=== PATIENT | male | born 1945 | race Caucasian/White ===

== ENCOUNTER 2017-09-10 13:39 | Inpatient (IN) | payer OTHER ==
[~2017-09-10] VITALS: Ht 172.7 cm; Wt 88.0 kg
[2017-09-10 13:52] VITALS: BP 133/74; PULSE 57; RESP 16; TEMP 97.8; O2SAT 99
[2017-09-10] MEDS ORDERED: PANTOPRAZOLE SODIUM 40 MG VIAL IVP ONE (14:15)
[2017-09-10] MEDS ORDERED: FAMOTIDINE 20 MG/2 ML VIAL IV PUSH ONE (14:15)
--- NOTE | 2017-09-10 14:52 | RADRPT ---
EXAM DATE/TIME: 09/10/2017 14:37 [facility] COMPARISON: No previous studies available for comparison. INDICATIONS : Chest pain and pressure. MEDICAL HISTORY : Acid reflux. SURGICAL HISTORY : None. ENCOUNTER: Initial ACUITY: 2 days PAIN SCORE: 2/10 LOCATION: Bilateral chest FINDINGS: The cardiac silhouette is enlarged in transverse diameter. The lungs are free of acute parenchymal op acity. No effusions are identified. Calcified granuloma is present in the right lung. CONCLUSION: 1. Cardiomegaly. No acute pulmonary disease. Steve Naqvi MD on September 10, 2017 at 14:49 Board Certified Radiologist. This report was verified electronically.
[2017-09-10 15:04] LABS: PROTHROMBIN TIME - PATIENT 10.5 SEC (9.8-11.6)
[2017-09-10 15:07] LABS: BASOPHIL % 0.6 % (0.0-2.0); EOSINOPHIL # 0.1 TH/MM3 (0-0.4); EOSINOPHIL % 1.4 % (0.0-4.0); HEMATOCRIT 43.5 % (39.0-51.0); HEMOGLOBIN 14.9 GM/DL (13.0-17.0); LYMPH % 10.1 % (9.0-44.0); LYMPHOCYTE # 0.8 TH/MM3 (1.0-4.8); MEAN CELL VOLUME 96.8 FL (80.0-100.0); MEAN CORPUSCULAR HEMOGLOBIN 33.1 PG (27.0-34.0); MEAN CORPUSCULAR HGB CONC 34.2 % (32.0-36.0); MEAN PLATELET VOLUME 8.7 FL (7.0-11.0); MONO % 9.5 % (0.0-8.0); MONOCYTE # 0.7 TH/MM3 (0-0.9); NEUT % 78.4 % (16.0-70.0); PLATELET COUNT 244 TH/MM3 (150-450); RED CELL DISTRIBUTION WIDTH 14.6 % (11.6-17.2); WHITE BLOOD COUNT 7.6 TH/MM3 (4.0-11.0)
[2017-09-10 15:09] VITALS: BP 124/74; PULSE 50; RESP 14; O2SAT 94
[2017-09-10] MEDS ORDERED: DICL1CAP4 PO (15:18)
[2017-09-10] MEDS ORDERED: GLUC15009 PO (15:18)
[2017-09-10] MEDS ORDERED: BISO10TA2 PO (15:18)
[2017-09-10] MEDS ORDERED: ATOR10TA15 PO (15:18)
[2017-09-10] MEDS ORDERED: ASPI81CH6 CHEW (15:18)
[2017-09-10] MEDS ORDERED: DICL75TA PO (15:19)
[2017-09-10] MEDS ORDERED: NITROGLYCERIN 0.4 MG SL 25 TABS/BTL SL ONE (15:30)
[2017-09-10] MEDS ORDERED: ASPIRIN 325 MG TAB PO ONE (15:30)
[2017-09-10 15:31] LABS: BICARBONATE 23.4 MEQ/L (21.0-32.0); CREATININE 0.93 MG/DL (0.60-1.30); TROPONIN I 0.2 NG/ML (0.02-0.05)
[2017-09-10 15:38] LABS: ALBUMIN 3.3 GM/DL (3.4-5.0); DIRECT BILIRUBIN ADULT 0.1 MG/DL (0.0-0.2); INDIRECT BILIRUBIN 0.9 MG/DL (0.0-0.8); TOTAL PROTEIN 6.4 GM/DL (6.4-8.2)
[2017-09-10] MEDS ORDERED: IOHEXOL 350 MG/ML 10 ML VIAL (for RAD DIAG) IVCONTRAST ONE (16:12)
--- NOTE | 2017-09-10 16:21 | RADRPT ---
EXAM DATE/TIME: 09/10/2017 16:08 [facility] COMPARISON: No previous studies available for comparison. INDICATIONS : Patient complains of chest pain. IV CONTRAST: 75 cc Omnipaque 350 (iohexol) IV RADIATION DOSE: 19.71 CTDIvol (mGy) MEDICAL HISTORY : Hypertension. Hernia, hiatal. stomach cancer SURGICAL HISTORY : None. ENCOUNTER: Initial ACUITY: 1 day PAIN SCALE: 6/10 LOCATION: chest TECHNIQUE: Volumetric scanning of the chest was performed using a pulmonary embolism protocol MIP images were re constructed. Using automated exposure control and adjustment of the mA and/or kV according to patien t size, radiation dose was kept as low as reasonably achievable to obtain optimal diagnostic quality images. DICOM format image data is available electronically for review and comparison. Follow-up recommendations for detected pulmonary nodules are based at a minimum on nodule size and pa tient risk factors according to Fleischner Society Guidelines. FINDINGS: PULMONARY ARTERIES: No filling defects are seen in the pulmonary arteries through the segmental level. LUNGS: There is no consolidation or pneumothorax . No concerning pulmonary nodule is visualized. 6 the duran cified granuloma in the right lower lung adjacent to the anterior hemidiaphragm. PLEURAE: There is no pleural thickening or pleural effusion. MEDIASTINUM: There is good visualization of the great vessels of the middle mediastinum. No evidence of mediastin al or hilar adenopathy/mass. Incidental note of mediastinal lipomatosis. CONCLUSION: The study is negative for pulmonary embolism. Arie Gordillo MD on September 10, 2017 at 16:17 Board Certified Radiologist. This report was verified electronically.
[2017-09-10] MEDS ORDERED: SODIUM CHLORIDE 0.9% FLUSH 10 ML FLUSH IV FLUSH PRN (16:45)
[2017-09-10] MEDS ORDERED: NALOXONE HCL 0.4 MG/ML AMP IV PUSH PRN (16:45)
--- NOTE | 2017-09-10 16:57 | PD ---
Physical Exam Narrative GENERAL: 71-year-old male in no apparent distress SKIN: Focused skin assessment warm/dry. HEAD: Atraumatic. Normocephalic. EYES: Pupils equal and round. No scleral icterus. No injection or drainage. ENT: No nasal bleeding or discharge. Mucous membranes pink and moist. NECK: Trachea midline. No JVD. Cardiovascular: Regular rate and rhythm RESPIRATORY: No accessory muscle use. no increased effort MUSCULOSKELETAL: No obvious deformities. No clubbing. No cyanosis. NEUROLOGICAL: Awake and alert. Moves all extremities. Normal speech. PSYCHIATRIC: Appropriate mood and affect; insight and judgment normal. Data Data Last Documented VS Vital Signs Date Time Temp Pulse Resp B/P (MAP) Pulse Ox O2 Delivery O2 Flow Rate FiO2 09/10/17 15:09 50 14 124/74 (91) 94 Room Air 09/10/17 13:52 97.8 Orders Orders Electrocardiogram (09/10/17 13:56) Complete Blood Count With Diff (09/10/17 13:56) Basic Metabolic Panel (Bmp) (09/10/17 13:56) Ckmb (Isoenzyme) Profile (09/10/17 13:56) Troponin I (09/10/17 13:56) Iv Access Insert/Monitor (09/10/17 13:56) Ecg Monitoring (09/10/17 13:56) Oxygen Administration (09/10/17 13:56) Oximetry (09/10/17 13:56) Coag Profile (09/10/17 13:56) Lipase (09/10/17 14:11) Hepatic Functional Panel (09/10/17 14:11) Pantoprazole Inj (Protonix Inj) (09/10/17 14:15) Famotidine Inj (Pepcid Inj) (09/10/17 14:15) Chest, Pa & Lat (09/10/17 13:56) Aspirin (Aspirin) (09/10/17 15:30) Nitroglycerin Sl (Nitrostat Sl) (09/10/17 15:30) Ct Pulmonary Angiogram (09/10/17 ) Iohexol 350 Inj (Omnipaque 350 Inj) (09/10/17 16:12) Admit Order (Ed Use Only) (09/10/17 16:41) Labs Laboratory Tests Test 09/10/17 14:10 White Blood Count 7.6 TH/MM3 Red Blood Count 4.50 MIL/MM3 Hemoglobin 14.9 GM/DL Hematocrit 43.5 % Mean Corpuscular Volume 96.8 FL Mean Corpuscular Hemoglobin 33.1 PG Mean Corpuscular Hemoglobin Concent 34.2 % Red Cell Distribution Width 14.6 % Platelet Count 244 TH/MM3 Mean Platelet Volume 8.7 FL Neutrophils (%) (Auto) 78.4 % Lymphocytes (%) (Auto) 10.1 % Monocytes (%) (Auto) 9.5 % Eosinophils (%) (Auto) 1.4 % Basophils (%) (Auto) 0.6 % Neutrophils # (Auto) 6.0 TH/MM3 Lymphocytes # (Auto) 0.8 TH/MM3 Monocytes # (Auto) 0.7 TH/MM3 Eosinophils # (Auto) 0.1 TH/MM3 Basophils # (Auto) 0.0 TH/MM3 CBC Comment DIFF FINAL Differential Comment Prothrombin Time 10.5 SEC Prothromb Time International Ratio 1.0 RATIO Activated Partial Thromboplast Time 25.3 SEC Blood Urea Nitrogen 16 MG/DL Creatinine 0.93 MG/DL Random Glucose 93 MG/DL Calcium Level 8.0 MG/DL Sodium Level 144 MEQ/L Potassium Level 3.4 MEQ/L Chloride Level 110 MEQ/L Carbon Dioxide Level 23.4 MEQ/L Anion Gap 11 MEQ/L Estimat Glomerular Filtration Rate 80 ML/MIN Total Bilirubin 1.0 MG/DL Direct Bilirubin 0.1 MG/DL Indirect Bilirubin 0.9 MG/DL Aspartate Amino Transf (AST/SGOT) 22 U/L Alanine Aminotransferase (ALT/SGPT) 35 U/L Alkaline Phosphatase 64 U/L Total Creatine Kinase 59 U/L Troponin I 0.20 NG/ML Total Protein 6.4 GM/DL Albumin 3.3 GM/DL Lipase 97 U/L [facility] Supervised Visit with KAMLESH: Yes Interpretation(s) CBC & BMP Diagram 09/10/17 14:10 Calcium Level 8.0 L Last 24 hours Impressions Chest X-Ray 09/10/17 1356 Signed Impressions: Service Date/Time: September 14:37 - CONCLUSION: 1. Cardiomegaly. No acute pulmonary disease. Steve Naqvi MD CT Angiography 09/10/17 0000 Signed Impressions: Service Date/Time: September 16:08 - CONCLUSION: The study is negative for pulmonary embolism. Arie Gordillo MD Narrative Course I, Dr. del castillo, have reviewed the advance practice practitioner's documentation and am in agreement, met with the patient face to face, made the diagnosis, and the medical decision making was done by me. *My assessment and Findings: 71 y/o male presents with chest pain. Troponin is elevated at 0.2. CT chest no PE, patient agrees to admit for further care Diagnosis Primary Impression: Chest pain Qualified Codes: R07.9 - Chest pain, unspecified Additional Impression: Elevated troponin Aundrea Del Castillo MD Sep 10, 2017 16:57
[2017-09-10] MEDS ORDERED: HEPARIN SODIUM - IV 10,000 UNITS/10 ML VIAL IV PUSH ONE (17:00)
[2017-09-10] MEDS ORDERED: NITROGLYCERIN 0.4 MG SL 25 TABS/BTL SL PRN (17:00)
[2017-09-10] MEDS: PANTOPRAZOLE SODIUM 40 MG VIAL IV PUSH SCH ×2 (17:00→22:17)
--- NOTE | 2017-09-10 17:14 | PD ---
HPI Chief Complaint: Cardiac Complaint Time Seen by Provider: 14:03 Travel History International Travel<30 days: No Contact w/Intl Traveler<30days: No Traveled to known affect area: No History of Present Illness HPI 71-year-old male that presents to the ED for evaluation of chest pain. Patient came here by ambulance for evaluation of this. Per patient started having this last night. He denies any recent travel. 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 Per patient he believes that this is related to GERD. He does have a significant history of heartburn being on medications chronically for this. He also developed gastric tumors and has a couple on his stomach. Per patient he had an EGD as well as colonoscopy recently that showed polyps and known malignant precancerous tumors. Patient does not receive any chemoradiation. Per patient she denies any injuries. Denies any headache. No blurred vision or double vision. No nausea or vomiting. Patient feels like a burning sensation of pressure on his chest. Per patient sitting up makes it better. He was not given anything for this. Allergy to naproxen. Per patient the pain is 7 out of 10. Patient got concerned today because the pain will not improve and his family was concerned about heart. PFSH Past Medical History High Cholesterol: Yes GERD: Yes Hiatal Hernia: Yes Hypertension: Yes Influenza Vaccination: Yes Past Surgical History Abdominal Surgery: Yes (gastrectomy from carcinoma of stomach) Oral Surgery: Yes (jaw repair) Other Surgery: Yes (hernia repair) Social History Alcohol Use: Yes (12/week wine or whiskey) Tobacco Use: No Substance Use: No Allergies-Medications (Allergen,Severity, Reaction): Coded Allergies: naproxen (Verified Allergy, Severe, 09/10/17) ULCERS Reported Meds & Prescriptions Reported Meds & Active Scripts Active Reported Diclofenac Sodium DR (Diclofenac Sodium) 75 Mg Tabdr 75 Mg PO DAILY Glucosamine 1,500 Mg Tab 1,500 Mg PO DAILY Aspirin Low Dose (Aspirin) 81 Mg Chew 81 Mg CHEW DAILY Atorvastatin (Atorvastatin Calcium) 10 Mg Tab 10 Mg PO HS Bisoprolol-Hydrochlorothiazide 10-6.25 Mg Tab 1 Tab PO DAILY Review of Systems Except as stated in HPI: all other systems reviewed are Neg Physical Exam Narrative GENERAL: SKIN: Warm and dry. HEAD: Atraumatic. Normocephalic. EYES: Pupils equal and round. No scleral icterus. No injection or drainage. ENT: No nasal bleeding or discharge. Mucous membranes pink and moist. Tongue is midline. No uvula deviation. NECK: Trachea midline. No JVD. CARDIOVASCULAR: Regular rate and rhythm. No murmurs, S3, S4. RESPIRATORY: No accessory muscle use. Clear to auscultation. Breath sounds equal bilaterally. GASTROINTESTINAL: Abdomen soft, non-tender, nondistended. Hepatic and splenic margins not palpable. MUSCULOSKELETAL: Extremities without clubbing, cyanosis, or edema. No obvious deformities. Full range of motion of the upper and lower extremities bilaterally. 2+ Pulses bilaterally. NEUROLOGICAL: Awake and alert. No obvious cranial nerve deficits. Motor grossly within normal limits. Five out of 5 muscle strength in the arms and legs. Normal speech. PSYCHIATRIC: Appropriate mood and affect; insight and judgment normal. Data Data Last Documented VS Vital Signs Date Time Temp Pulse Resp B/P (MAP) Pulse Ox O2 Delivery O2 Flow Rate FiO2 09/10/17 15:09 50 14 124/74 (91) 94 Room Air 09/10/17 13:52 97.8 Orders Orders Electrocardiogram (09/10/17 13:56) Complete Blood Count With Diff (09/10/17 13:56) Basic Metabolic Panel (Bmp) (09/10/17 13:56) Ckmb (Isoenzyme) Profile (09/10/17 13:56) Troponin I (09/10/17 13:56) Iv Access Insert/Monitor (09/10/17 13:56) Ecg Monitoring (09/10/17 13:56) Oxygen Administration (09/10/17 13:56) Oximetry (09/10/17 13:56) Coag Profile (09/10/17 13:56) Lipase (09/10/17 14:11) Hepatic Functional Panel (09/10/17 14:11) Pantoprazole Inj (Protonix Inj) (09/10/17 14:15) Famotidine Inj (Pepcid Inj) (09/10/17 14:15) Chest, Pa & Lat (09/10/17 13:56) Aspirin (Aspirin) (09/10/17 15:30) Nitroglycerin Sl (Nitrostat Sl) (09/10/17 15:30) Ct Pulmonary Angiogram (09/10/17 ) Iohexol 350 Inj (Omnipaque 350 Inj) (09/10/17 16:12) Admit Order (Ed Use Only) (09/10/17 16:41) Labs Laboratory Tests Test 09/10/17 14:10 White Blood Count 7.6 TH/MM3 Red Blood Count 4.50 MIL/MM3 Hemoglobin 14.9 GM/DL Hematocrit 43.5 % Mean Corpuscular Volume 96.8 FL Mean Corpuscular Hemoglobin 33.1 PG Mean Corpuscular Hemoglobin Concent 34.2 % Red Cell Distribution Width 14.6 % Platelet Count 244 TH/MM3 Mean Platelet Volume 8.7 FL Neutrophils (%) (Auto) 78.4 % Lymphocytes (%) (Auto) 10.1 % Monocytes (%) (Auto) 9.5 % Eosinophils (%) (Auto) 1.4 % Basophils (%) (Auto) 0.6 % Neutrophils # (Auto) 6.0 TH/MM3 Lymphocytes # (Auto) 0.8 TH/MM3 Monocytes # (Auto) 0.7 TH/MM3 Eosinophils # (Auto) 0.1 TH/MM3 Basophils # (Auto) 0.0 TH/MM3 CBC Comment DIFF FINAL Differential Comment Prothrombin Time 10.5 SEC Prothromb Time International Ratio 1.0 RATIO Activated Partial Thromboplast Time 25.3 SEC Blood Urea Nitrogen 16 MG/DL Creatinine 0.93 MG/DL Random Glucose 93 MG/DL Calcium Level 8.0 MG/DL Sodium Level 144 MEQ/L Potassium Level 3.4 MEQ/L Chloride Level 110 MEQ/L Carbon Dioxide Level 23.4 MEQ/L Anion Gap 11 MEQ/L Estimat Glomerular Filtration Rate 80 ML/MIN Total Bilirubin 1.0 MG/DL Direct Bilirubin 0.1 MG/DL Indirect Bilirubin 0.9 MG/DL Aspartate Amino Transf (AST/SGOT) 22 U/L Alanine Aminotransferase (ALT/SGPT) 35 U/L Alkaline Phosphatase 64 U/L Total Creatine Kinase 59 U/L Troponin I 0.20 NG/ML Total Protein 6.4 GM/DL Albumin 3.3 GM/DL Lipase 97 U/L [facility] Medical Decision Making Medical Screen Exam Complete: Yes Emergency Medical Condition: Yes Medical Record Reviewed: Yes Interpretation(s) CBC & BMP Diagram 09/10/17 14:10 Calcium Level 8.0 L troponin of 0.20 CKMB negative EKG shows sinus bradycardia but no obvious ST elevations Last Impressions Chest X-Ray 09/10/17 1356 Signed Impressions: Service Date/Time: September 14:37 - CONCLUSION: 1. Cardiomegaly. No acute pulmonary disease. Steve Naqvi MD CT Angiography 09/10/17 0000 Signed Impressions: Service Date/Time: September 16:08 - CONCLUSION: The study is negative for pulmonary embolism. Arie Gordillo MD Coags WNL Differential Diagnosis Chest pain versus ACS versus GERD versus PE Narrative Course 71-year-old male who presents to the ED for evaluation of chest pain. Patient was properly examined and found to have concerning symptoms for ACS. Labs and imaging were ordered. Patient given protonix, pepcid, aspirin and nitro. Labs and imaging showed positive troponin. CTA ordered to rule out PE per Dr Altamirano's recommendations. This was negative. At this time recommendation is for admission for further evaluation. Patient agrees. Case discussed with Dr. Moran who agrees with admission. Diagnosis Primary Impression: Chest pain Qualified Codes: R07.9 - Chest pain, unspecified Additional Impression: Elevated troponin Admitting Information Admitting Physician Requests: Admit Jason Lewis Sep 10, 2017 17:14
[2017-09-10] MEDS ORDERED: MORPHINE SULFATE 2 MG/ML SYRINGE IV PUSH PRN (17:15)
[2017-09-10] MEDS: HEPARIN-D5W 25,000 U/250 ML 250 ML IV PRN (17:30)
[2017-09-10 17:35] VITALS: BP 190/88; PULSE 52; RESP 24; O2SAT 97
[2017-09-10 20:17] VITALS: BP 162/94; PULSE 54; RESP 16; O2SAT 97
--- NOTE | 2017-09-10 20:17 | EKG ---
Date Performed: 09/10/2017 Time Performed: 14:05:59 PTAGE: 71 years EKG: SINUS BRADYCARDIA NONSPECIFIC INFERIOR ST ABNORMALITY ABNORMAL ECG NO PREVIOUS TRACING DOCTOR: Leno Varner Interpretating Date/Time 09/10/2017 20:15:35
[2017-09-10] MEDS ORDERED: POTASSIUM CHLORIDE 20 MEQ CONTROLLED RELEASE TAB PO ONE (20:45)
--- NOTE | 2017-09-10 20:46 | HHI.HP ---
[facility] Unknown Admission Diagnosis acute chest pain, positive troponin Diagnoses: Travel History International Travel<30 Days: No Contact w/Intl Traveler <30 Da: No Traveled to Known Affected Are: No History of Present Illness 71-year-old male with past medical history significant for carcinoid tumor status post resection, hypertension, hyperlipidemia and GERD presents to the emergency department with evaluation of chest pain. The patient reports that the chest pain started last night. Describes it as substernal and states that it radiates up his bilateral neck. He endorses an episode of diaphoresis around 10 AM. Denies increased shortness of breath. No abdominal pain. No nausea/vomiting/diarrhea. No weakness or lateralizing signs/symptoms. Review of Systems Except as stated in HPI: all other systems reviewed are Neg Past Family Social History Past Medical History History of carcinoid tumor Hypertension Hyperlipidemia GERD Past Surgical History Partial gastrectomy Right hip Reported Medications Reported Meds & Active Scripts Active Reported Diclofenac Sodium DR (Diclofenac Sodium) 75 Mg Tabdr 75 Mg PO DAILY Glucosamine 1,500 Mg Tab 1,500 Mg PO DAILY Aspirin Low Dose (Aspirin) 81 Mg Chew 81 Mg CHEW DAILY Atorvastatin (Atorvastatin Calcium) 10 Mg Tab 10 Mg PO HS Bisoprolol-Hydrochlorothiazide 10-6.25 Mg Tab 1 Tab PO DAILY Allergies: Coded Allergies: naproxen (Verified Allergy, Severe, 09/10/17) ULCERS Family History Negative for CAD/DM Social History Remote history of tobacco. Drinks approximately 1-2 drinks daily. Denies illicit drugs. Physical Exam Vital Signs Vital Signs Date Time Temp Pulse Resp B/P (MAP) Pulse Ox O2 Delivery O2 Flow Rate FiO2 09/10/17 20:17 54 16 162/94 (116) 97 Room Air 09/10/17 17:35 52 24 190/88 (122) 97 Room Air 09/10/17 15:09 50 14 124/74 (91) 94 Room Air 09/10/17 13:52 97.8 57 16 133/74 (93) 99 Physical Exam GENERAL: male lying in bed SKIN: No rashes, ecchymoses or lesions. Cool and dry. HEAD: Atraumatic. Normocephalic. No temporal or scalp tenderness. EYES: Pupils equal round and reactive. Extraocular motions intact. No scleral icterus. No injection or drainage. ENT: Nose without bleeding, purulent drainage or septal hematoma. Throat without erythema, tonsillar hypertrophy or exudate. Uvula midline. Airway patent. NECK: Trachea midline. No JVD or lymphadenopathy. Supple, nontender, no meningeal signs. CARDIOVASCULAR: Regular rate and rhythm without murmurs, gallops, or rubs. RESPIRATORY: Clear to auscultation. Breath sounds equal bilaterally. No wheezes , rales, or rhonchi. GASTROINTESTINAL: Abdomen soft, non-tender, nondistended. No hepato-splenomegaly , or palpable masses. No guarding. MUSCULOSKELETAL: Extremities without clubbing, cyanosis, or edema. No joint tenderness, effusion, or edema noted. No calf tenderness. NEUROLOGICAL: Awake and alert. Cranial nerves II through XII intact. Motor and sensory grossly within normal limits. Normal speech. Laboratory Laboratory Tests Test 09/10/17 14:10 09/10/17 20:10 White Blood Count 7.6 Red Blood Count 4.50 Hemoglobin 14.9 Hematocrit 43.5 Mean Corpuscular Volume 96.8 Mean Corpuscular Hemoglobin 33.1 Mean Corpuscular Hemoglobin Concent 34.2 Red Cell Distribution Width 14.6 Platelet Count 244 Mean Platelet Volume 8.7 Neutrophils (%) (Auto) 78.4 Lymphocytes (%) (Auto) 10.1 Monocytes (%) (Auto) 9.5 Eosinophils (%) (Auto) 1.4 Basophils (%) (Auto) 0.6 Neutrophils # (Auto) 6.0 Lymphocytes # (Auto) 0.8 Monocytes # (Auto) 0.7 Eosinophils # (Auto) 0.1 Basophils # (Auto) 0.0 CBC Comment DIFF FINAL Differential Comment Prothrombin Time 10.5 Prothromb Time International Ratio 1.0 Activated Partial Thromboplast Time 25.3 Blood Urea Nitrogen 16 Creatinine 0.93 Random Glucose 93 Calcium Level 8.0 Sodium Level 144 Potassium Level 3.4 Chloride Level 110 Carbon Dioxide Level 23.4 Anion Gap 11 Estimat Glomerular Filtration Rate 80 Total Bilirubin 1.0 Direct Bilirubin 0.1 Indirect Bilirubin 0.9 Aspartate Amino Transf (AST/SGOT) 22 Alanine Aminotransferase (ALT/SGPT) 35 Alkaline Phosphatase 64 Total Creatine Kinase 59 Troponin I 0.20 Total Protein 6.4 Albumin 3.3 Lipase 97 Result Diagram: 09/10/17 14109/10/17 1410 Caprini VTE Risk Assessment Caprini VTE Risk Assessment: Mod/High Risk (score >= 2) Caprini Risk Assessment Model Point Value = 1 Point Value = 2 Point Value = 3 Point Value = 5 Age 41-60 Minor surgery BMI > 25 kg/m2 Swollen legs Varicose veins or History of unexplained or recurrent spontaneous Oral contraceptives or hormone replacement Sepsis (< 1 month) Serious lung disease, including pneumonia (< 1 month) Abnormal pulmonary function Acute myocardial infarction Congestive heart failure (< 1 month) History of inflammatory bowel disease Medical patient at bed rest Age 61-74 Arthroscopic surgery Major open surgery (> 45 min) Laparoscopic surgery (> 45 min) Malignancy Confined to bed (> 72 hours) Immobilizing plaster cast Central venous access Age >= 75 History of VTE Family history of VTE Factor V Leiden Prothrombin [id number] Lupus anticoagulant Anticardiolipin antibodies Elevated serum homocysteine Heparin-induced thrombocytopenia Other congenital or acquired thrombophilia Stroke (< 1 month) Elective arthroplasty Hip, pelvis, or leg fracture Acute spinal cord injury (< 1 month) Prophylaxis Regimen Total Risk Factor Score Risk Level Prophylaxis Regimen 0-1 Low Early ambulation 2 Moderate Order ONE of the following: *Sequential Compression Device (SCD) *Heparin 5000 units SQ BID 3-4 Higher Order ONE of the following medications: *Heparin 5000 units SQ TID *Enoxaparin/Lovenox 40 mg SQ daily (WT < 150 kg, CrCl > 30 mL/min) *Enoxaparin/Lovenox 30 mg SQ daily (WT < 150 kg, CrCl > 10-29 mL/min) *Enoxaparin/Lovenox 30 mg SQ BID (WT < 150 kg, CrCl > 30 mL/min) AND/OR *Sequential Compression Device (SCD) 5 or more Highest Order ONE of the following medications: *Heparin 5000 units SQ TID (Preferred with Epidurals) *Enoxaparin/Lovenox 40 mg SQ daily (WT < 150 kg, CrCl > 30 mL/min) *Enoxaparin/Lovenox 30 mg SQ daily (WT < 150 kg, CrCl > 10-29 mL/min) *Enoxaparin/Lovenox 30 mg SQ BID (WT < 150 kg, CrCl > 30 mL/min) AND *Sequential Compression Device (SCD) Assessment and Plan Assessment and Plan Assessment/plan: 1. NSTEMI EKG significant for sinus bradycardia without ST segment elevations or depressions Initial troponin 0.20 ACS rule out pending; serial troponins/EKGs Heparin bolus and drip Cardiology consulted, appreciate recommendations 2. Hypertension/hyperlipidemia/GERD Continue home statin and antihypertensive 3. History of carcinoid tumor Per patient his tumor markers are again elevated He has an oncologist in [place] that he follows with Continue outpatient care 4. Hypokalemia Status post by mouth repletion Monitor BMP FEN NPO Electrolytes: As above Heparin drip NS at 70 cc/hour Physician Certification 2 Midnight Certification Type: Admission for Inpatient Services Order for Inpatient Services The services are ordered in accordance with Medicare regulations or non- Medicare payer requirements, as applicable. In the case of services not specified as inpatient-only, they are appropriately provided as inpatient services in accordance with the 2-midnight benchmark. Estimated LOS (days): 2 2 days is the estimated time the patient will need to remain in the hospital, assuming treatment plan goals are met and no additional complications. Post-Hospital Plan: Not yet determined Diana Colvin MD Sep 10, 2017 20:46
[2017-09-10] MEDS ORDERED: ATORVASTATIN 10 MG TAB PO SCH (21:00)
[2017-09-10 21:15] LABS: TROPONIN I 1.77 NG/ML (0.02-0.05)
[2017-09-10 21:26] VITALS: BP 135/65; PULSE 51; RESP 17; TEMP 97.7; O2SAT 96
[2017-09-10 21:34] VITALS: PULSE 48
[2017-09-10] MEDS ORDERED: PILL SPLITTER OTHER PRN (21:45)
[2017-09-10] MEDS: SODIUM CHLORIDE 0.9% FLUSH 10 ML FLUSH IV FLUSH SCH (22:18)
[2017-09-10] MEDS: SODIUM CHLOR 0.9% 1000 ML INJ 1,000 ML IV SCH (22:18)
[2017-09-10] MEDS: MORPHINE SULFATE 4 MG/ML INJ IV PUSH PRN (22:26)
[2017-09-11] VITALS (10 sets, daily range): BP systolic 108–136; BP diastolic 52–81; PULSE 48–60; RESP 16–20; TEMP 97.9–98.2; O2SAT 94–96
[2017-09-11] MEDS: MORPHINE SULFATE 4 MG/ML INJ IV PUSH PRN ×5 (04:21→23:19)
--- NOTE | 2017-09-11 05:34 | EKG ---
Date Performed: 09/10/2017 Time Performed: 20:15:00 PTAGE: 71 years EKG: SINUS BRADYCARDIA WITH FIRST DEGREE AV BLOCK ST/T-WAVE ABNORMALITY, CONSIDER LATERAL ISCHEM IA ABNORMAL ECG PREVIOUS TRACING : 09/10/2017 14.05 Compared to previous tracing, T wave inversion in AVL is no w present. DOCTOR: Leno Varner Interpretating Date/Time 09/11/2017 05:33:12
[2017-09-11] MEDS ORDERED: HYDROCHLOROTHIAZIDE 25 MG TAB PO SCH (09:00)
[2017-09-11] MEDS ORDERED: ASPIRIN EC 325 MG TABEC PO SCH (09:00)
[2017-09-11] MEDS: SODIUM CHLORIDE 0.9% FLUSH 10 ML FLUSH IV FLUSH SCH ×2 (09:00→20:12)
[2017-09-11] MEDS ORDERED: BISOPROLOL/HCTZ 10 MG/6.25 MG TAB PO SCH (09:00)
[2017-09-11] MEDS ORDERED: BISOPROLOL FUMARATE 5 MG TAB PO SCH (09:00)
[2017-09-11] MEDS ORDERED: HEPARIN-NS/PF FLUSH BAG 2,000 ML IV FLUSH ONE (09:51)
[2017-09-11] MEDS ORDERED: HEPARIN SODIUM - IV 10,000 UNITS/10 ML VIAL ONE (09:52)
[2017-09-11] MEDS ORDERED: LIDOCAINE HCL 1% PF 30 ML VIAL ONE (09:52)
[2017-09-11] MEDS ORDERED: VERAPAMIL HCL 5 MG/2 ML VIAL ONE (09:52)
[2017-09-11] MEDS ORDERED: MIDAZOLAM HCL 2 MG/2 ML VIAL ONE (09:54)
[2017-09-11] MEDS ORDERED: NITROGLYCERIN-D5W 50 MG/250 ML 250 ML ONE (10:22)
[2017-09-11] MEDS ORDERED: HEPARIN-D5W 25,000 U/250 ML 250 ML ONE (10:22)
--- NOTE | 2017-09-11 10:42 | CATHPROC ---
[employer] HIS Report Study Information Study Number Admission Scheduled Start Study Start [id number] Sep 10 2017 4:42PM 09/11/2017 Sep 11 2017 9:50AM [facility] Cardiac Catheterization Admit Source Facility Department Emergency department [facility] - [facility] [employer] [facility] Physician and Clinical Staff Initial MD Reese, Joseph Relay Technician Stephani Aquino,RN Recorder Garth SHEEHAN, Dashawn Esparza,RT(R) Procedures Performed Procedure Location (Site) Vessel Name Coronary Angiograms RCA Right Coronary L Heart Cath Equipment Time [employer] Supervisor Description Size Mfg Part Number Used/Scraped TRANSDUCER, TRUWAVE [id number] 09:51 MOISE DAVISON * Used W/STOCKCOCK *[id number] *[id number] [id number] *[id number] 09:51 [employer] PACK, CCL CUSTOM * Used *[id number] 09:51 [employer] SUPPORT, ARTERIAL ADULT 50731 *[id number] Used BAND, RADIAL COMPRESSION TR [id number] 10:24 Antengo 29CM Used LARGE 29 *[id number] 09:51 [employer] WIRE, EXCHANGE 260CM 3MMJ 260CM Used *[id number] 09:51 NAMIC MANIFOLD, 4 PORT * Used *[id number] 09:51 [employer] OMNIPAQUE, 350 MG, 150ML 150ML [id number] Used [id number] 09:51 [employer] BLANKET,WARM AIR CCL * Used *[id number] SHEATH, FR6 TRANSRADIAL RM*[id number] 09:51 [employer] MEDICAL FR 6 Used SLENDER 10CM *[id number] History: Allergies Allergy Reaction naproxen History: Risk Factors Family History of Hypertension Dyslipidemia Previous MN Previous Heart Failure Premature CAD Yes Yes Yes No No Prior Valve Prior PCI Prior CABG Surgery No No No Cerebrovascular Peripheral Artery Chronic Lung On Dialysis Diabetes Disease Disease Disease No No No No No History: Symptoms/Diagnosis Selection Items Chest pain History: Stress Tests Stress or Imaging Studies Performed No History: Other Current Smoker Method Quit Packs a Day Years Used Pack Years No Cigarettes 30 Years Ago 1 23 Labs Hgb (g/dl) Hct (%) WBC (l/cumm) Platelets (thousands) 11.60-17.00 35.00-51.00 4.00-11.00 150.00-450.00 14.9 43.5 7.6 244 Glucose (mg/dl) BUN (mg/dl) Creatinine (mg/dl) BUN:Creatinine (1:x) 74.00-106.00 7.00-18.00 0.50-1.30 10.00-20.00 93 16 0.9 17.8 Na (meq/l) K (meq/l) 136.00-145.00 3.50-5.10 144 3.4 Troponin I (ng/ml) CPK (u/l) CPK-MB (ng/ML) 0.02-0.05 26.00-308.00 0.50-3.60 1.8 123 Not Drawn Medication Medication Total Dose (Bolus/Oral) Medication Total Dosage/Unit 1% XYLOCAINE 3 mL FENTANYL 25 mcg RADIAL COCKTAIL 5 mL (Bolus) VERSED 0.5 mg Medications (Bolus/Oral) Medication Time Given Dosage/Unit Administered By Reason 1% XYLOCAINE 09/11/2017 10:10:11 AM 3 mL Joseph Reese Patient arrived on 3 mL 1% XYLOCAINE given by Joseph Reese in Right Radial via Subcutaneous. VERSED 09/11/2017 10:11:27 AM 0.5 mg Stephani Aquino Patient arrived on 0.5 mg VERSED given by Stephani Aquino, SISSY via Peripheral IV. Ordered by Joseph Reese Ntg 200mcg Verapamil 2.5mg Heparin RADIAL COCKTAIL 09/11/2017 10:11:58 AM 5 mL (Bolus) Joseph Reese 3000U Patient arrived on 5 mL (Bolus) RADIAL COCKTAIL given by Joseph Reese via Radial. Using [Solut ion Name]. Ordered by Joseph Reese Reason: Ntg 200mcg Heparin 3300U. FENTANYL 09/11/2017 10:12:41 AM 25 mcg Stephani Aquino Patient arrived on 25 mcg FENTANYL given by Stephani Aquino, SISSY via Peripheral IV. Ordered by Joseph Reese Medication (Drip) Medication Time Given Dosage/Unit Concentration/Unit Diluent (ml) Solution HEPARIN DRIP 09/11/2017 10:33:29 AM 1000 units/hr 20178 units 250 D5W Patient arrived on 1000 units/hr HEPARIN DRIP given by Stephani Aquino, SISSY via Peripheral IV. Pump/Dri p Flow = 10 ml/hr [place] D5[place] [address] units in 250 ml. Ordered by Joseph Reese IV Solutions 09/11/2017 9:50:21 AM 0 mL (IV) 1000 NaCl .9 Patient arrived on IV Solutions in Left Antecubital via Peripheral IV. Pump/Drip Flow = 20 ml/hr joseph g NaCl .9. NITROGLYCERIN DRIP 09/11/2017 10:33:53 AM 5 mcg/min 50 mg 250 D5W Patient arrived on 5 mcg/min NITROGLYCERIN DRIP given by Stephani Aquino RN via Peripheral IV. Pump/D rip Flow = 1.5 ml/hr using D5W with a concentration of 50 mg in 250 ml. Ordered by Joseph Reese Final Case Assessment Cardiovascular HR NIBP 44 111/63 Edema Present Skin color Skin None Normal Warm Dry Circulatory - Right Pulses Dorsalis Pedis Femoral Radial 1 2 2 Scale (0,1,2,3,4,d) Circulatory - Left Pulses Dorsalis Pedis Femoral Radial 1 2 Scale (0,1,2,3,4,d) Neurological State Oriented to time-place- Alert Moves all extremities person Respiration - General SpO2 (%) 96 Chronological Log Time Study Chronological Log 9:49:51 Patient arrived via Bed. 9:49:53 Patient Name, D.O.B, / Armband Verified By R.N. 9:49:54 Consent signed by the physician and the patient and verified by the [employer] staff. 9:49:54 Pre-op and post- op instructions given; patient acknowledges understanding of instructions. 9:49:58 Presedation assessment performed by [employer] RN. 9:50:01 Allens test performed on the right radial and ulnar artery. 9:50:14 Patient has been NPO for More than 6Hrs. 9:50:15 Skin Breakdown- 9:50:16 Debbie Prominences Protected 9:50:20 A # 20 IV was noted in the Antecubital (left). Grade = patent 9:50:21 Patient arrived on IV Solutions in Left Antecubital via Peripheral IV. Pump/Drip Flow = 20 m l/hr using NaCl .9. 9:50:22 History and physical on the chart or being dictated. Vitals capture started with the following parameters, Patient=Adult, Interval=5 min, Initial Pr aeloov=766 mmHg, 9:51:31 Deflation Rate=5 mmHg, Cuff placed on Left Arm 9:52:12 PFQO=454/71 mmhg, Pain=0, Nicholas=10, Austin=2 9:56:10 A # 20 IV was noted in the Hand (left). Grade = patent 9:57:50 HR=47 bpm, TIEP=094/68 mmhg, SpO2=95.0 %, Resp=17 B/min, Austin=2 10:00:04 Right Radial and groin(s) prepped with 2% chlorhexidine, and draped after a 3 min. waiting time. 10:00:21 MD arrived. 10:02:12 HR=45 bpm, PLJI=693/71 mmhg, SpO2=95.0 %, Resp=18 B/min, Austin=2 10:03:51 Reference ECG taken 10:05:04 Pressure channel 1 zeroed. 10:07:13 HR=47 bpm, WXQH=015/69 mmhg, SpO2=92.0 %, Resp=16 B/min, Austin=2 Time Out. Correct patient, correct procedure, correct physician, power injector loaded, or not loaded with contrast with 10:09:18 surgical team present. Time Out Concurred by MD and individual staff in procedure. 10:09:54 Case Start 10:10:11 Patient arrived on 3 mL 1% XYLOCAINE given by Joseph Reese in Right Radial via Subcu taneous. 10:11:14 Access site was Radial Artery. 10:11:27 Patient arrived on 0.5 mg VERSED given by Stephani Aquino, SISSY via Peripheral IV. Ordered by Joseph Reese Patient arrived on 5 mL (Bolus) RADIAL COCKTAIL given by Joseph Reese via Radial. Using [Solution Name]. 10:11:58 Ordered by Joseph Reese Reason: Ntg 200mcg Heparin 3300U. 10:12:10 HR=48 bpm, BWFK=121/71 mmhg, SpO2=99.0 %, Resp=15 B/min, Austin=2 10:12:41 Patient arrived on 25 mcg FENTANYL given by Stephani Aquino, RN via Peripheral IV. Ordered b y Joseph Reese. A JR 4.0 INFINITI CATHETER FR 5 was advanced over a wire. OMNIPAQUE, 350 MG, 150ML 150ML was us ed for 10:12:50 injections. Recorded Pressure: LV, HR=51, Condition=Condition 1 10:14:15 (Left Ventricle) LV 113/5/16 Recorded Pressure: LV, Ao, HR=54, Condition=Condition 1 10:14:28 (Left Ventricle) LV 103/5/12, (Aorta) Ao 99/59/76 10:16:34 The RCA was injected and visualized at various angles. OMNIPAQUE, 350 MG, 150ML 150ML used . 10:17:15 HR=48 bpm, YBHU=566/58 mmhg, SpO2=91.0 %, Resp=13 B/min, Austin=2 After removing the current catheter a JL 3.5 INFINITI CATHETER FR 5 was advanced over a WIRE, EXCHANGE 260CM 10:17:46 3MMJ 260CM. 10:22:08 HR=47 bpm, BVWA=680/60 mmhg, SpO2=93.0 %, Resp=18 B/min, Pain=0, Austin=2 10:23:03 Catheter was removed 10:23:38 Case End Radial Compression Device Used. 10 mLs of air placed in BAND, RADIAL COMPRESSION TR LARGE 29 2 9CM. Affected 10:25:10 hand 97 % O2 saturation. 10:25:33 Bedside Report will be given. 10:25:35 DOCU called. Spoke to JAILENE Assessment: Final Case, HR=44 BPM, ZTHP=811/63 mmhg, Edema=None, Color=Normal, Skin = Warm, Dr y Right Pulses: Jeff Ped=1, Femoral=2, Radial=2 10:27:03 Left Pulses: Jeff Ped=1, Femoral=2 Neurological: State=Alert, Ox3, VALENCIA Respiration: SpO2=96 % 10:27:52 HR=43 bpm, LLVL=067/63 mmhg, SpO2=99.0 %, Resp=12 B/min, Austin=2 10:28:03 Vitals capture stopped. 10:28:39 No case complications noted. 10:32:50 A Left Heart Cath was performed. 10:32:56 [facility] Patient arrived on 1000 units/hr HEPARIN DRIP given by Stephani Aquino RN via Peripheral IV. P ump/Drip Flow = 10 10:33:29 ml/hr [place] [address] units in 250 ml. Ordered by Joseph Reese Patient arrived on 5 mcg/min NITROGLYCERIN DRIP given by Stephani Aquino RN via Peripheral IV. Pump/Drip Flow = 10:33:53 1.5 ml/hr using D5W with a concentration of 50 mg in 250 ml. Ordered by Joseph Reese End Study - Contrast Media Used In Study Contrast Total Opened (mL) Total Used (mL) Total Wasted (mL) Omnipaque 40 40 0 End Study - Maximum Contrast Load Max Contrast Load (mL) 456.1 End Study - Radiation Exposure Fluoro Time (minutes) 2.9 End Study - Patient Disposition Complications Transferred To Interventional Outcome No [employer] No attempt made
[2017-09-11] MEDS ORDERED: IOHEXOL 350 MG/ML 50 ML BTL (for Cath Lab) OTHER ONE (12:11)
[2017-09-11] MEDS: NITROGLYCERIN-D5W 50 MG/250 ML 250 ML IV PRN (13:41)
[2017-09-11] MEDS ORDERED: METOPROLOL TARTRATE 25 MG TAB PO SCH (13:45)
[2017-09-11] MEDS ORDERED: SODIUM CHLORIDE 0.9% FLUSH 10 ML FLUSH IV FLUSH PRN (13:45)
[2017-09-11] MEDS ORDERED: PAPAVERINE INJ 60 MG, NITROGLYCERIN INJ 100 MCG, DILTIAZEM INJ 100 MG in SODIUM CHLORID... IRRIGATION SCH (13:45)
[2017-09-11] MEDS ORDERED: CEFAZOLIN INJ 500 MG in SODIUM CHLORIDE 0.9% IRR BTL 500 ML IRRIGATION SCH (13:45)
[2017-09-11] MEDS ORDERED: DEXTROSE 50% IN WATER 50 ML VIAL(D50) IV PUSH PRN (13:45)
[2017-09-11] MEDS ORDERED: INSULIN REGULAR (IV INFUSION) 100 UNITS in SODIUM CHLORIDE 0.9% INJ 99 ML IV PRN (13:45)
[2017-09-11] MEDS ORDERED: CHLORHEXIDINE GLUCONATE 4% SOLN 120 ML BTL TOPICAL SCH (13:45)
[2017-09-11] MEDS ORDERED: POTASSIUM CHLORIDE 25 MEQ EFFERVESCENT TAB PO ONE (14:00)
[2017-09-11 14:30] LABS: BILIRUBIN, URINE NEG (NEG); BLOOD, URINE NEG (NEG); GLUCOSE,URINE NEG (NEG); KETONE, URINE NEG (NEG); NITRITE,URINE NEG (NEG); URINE COLOR LIGHT-YELLOW (YELLW/STRAW); URINE LEUKOCYTE ESTERASE NEG (NEG)
--- NOTE | 2017-09-11 14:45 | HHI.PR ---
Subjective Remarks Chest pain remains when seen this morning. Troponin has trended from 0.2 to 1.7. Heart catheter plan today. Objective Vital Signs Date Time Temp Pulse Resp B/P (MAP) Pulse Ox O2 Delivery O2 Flow Rate FiO2 09/11/17 13:41 50 116/52 09/11/17 10:43 98 Room Air 09/11/17 08:00 97.9 60 16 120/66 (84) 96 09/11/17 04:00 98.1 56 18 108/52 (70) 96 09/11/17 00:00 98.0 53 20 131/62 (85) 94 09/10/17 21:34 48 09/10/17 21:26 97.7 51 17 135/65 (88) 96 09/10/17 21:21 09/10/17 20:17 54 16 162/94 (116) 97 Room Air 09/10/17 17:35 52 24 190/88 (122) 97 Room Air 09/10/17 15:09 50 14 124/74 (91) 94 Room Air I/O 09/10/17 09/10/17 09/10/17 09/11/17 09/11/17 09/11/17 07:00 15:00 23:00 07:00 15:00 23:00 Intake Total 0 ml Output Total 300 ml Balance -300 ml Intake Oral 0 ml Output Urine Total 300 ml # Voids 1 # Bowel Movements 0 Result Diagram: 09/10/17 1410 09/10/17 1410 Objective Remarks GENERAL: NAD, A&Ox3 HEAD: Normocephalic. NECK: Supple, trachea midline. No lymphadenopathy. EYES: No scleral icterus. No injection or drainage. CARDIOVASCULAR: Regular rate and rhythm without murmurs, gallops, or rubs. RESPIRATORY: Breath sounds equal bilaterally. No accessory muscle use. GASTROINTESTINAL: Abdomen soft, non-tender, nondistended. MUSCULOSKELETAL: No cyanosis, or edema. SKIN: Warm and dry. NEURO: No focal neurological deficitis. A/P Problem List: (1) Chest pain ICD Code: R07.9 - Chest pain, unspecified Status: Acute (2) Elevated troponin ICD Code: R74.8 - Abnormal levels of other serum enzymes Status: Acute Assessment and Plan 71-year-old male admitted secondary to NSTEMI Kind for heart catheter today. Labs reviewed. Troponins are elevating. Continue to monitor labs. Labs ordered for further monitoring. Continue to monitor labs including CBC, CMP, and troponin. 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
--- NOTE | 2017-09-11 16:24 | MB ---
cc: Consuelo Staley Jacqueline R ARNP DATE: 09/11/2017 DATE OF : 1945 HISTORY OF PRESENT ILLNESS: This is a 71-year-old male visiting from the [place] area, on vacation with his family. He presented to the emergency room with substernal chest pain, 10/10, associated with diaphoresis, positive for troponin, ruled in for a non-STEMI. Had been at [place] the day before, thought it was indigestion, had that on Thursday night and on the EMS was called. He underwent cardiac catheterization today by Dr. Reese showing proximal LAD 70%, mid-distal LAD 90%, diagonal 10%, the circ was 60%, the RCA 95% and the ramus 99%. We were consulted to evaluate for coronary artery bypass grafting. Echocardiogram is pending for ejection fraction. 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 PAST SURGICAL HISTORY: He had a partial gastrectomy, right hip surgery, also in 2017 endoscopy. ALLERGIES: NAPROSYN, WHICH CAUSES ULCERS. HOME MEDICATIONS: Include: 1. Diclofenac. 2. Glucosamine. 3. Aspirin. 4. Atorvastatin. 5. Bisoprolol/hydrochlorothiazide. FAMILY HISTORY: Father alive at 93, healthy. Mother from esophageal cancer at 54. SOCIAL HISTORY: The patient is , 2 children. Still works part-time for [email or web address]. Smoked for 23 years, quit in 1986. Drinks 1-2 drinks daily. No illicit drugs. REVIEW OF SYSTEMS: GENERAL: No night sweats, fever, heat or cold intolerance. SKIN: No psoriasis, itching or hives. HEENT: No blurred vision, hearing loss. RESPIRATORY: Positive for recent shortness of breath, cough. CARDIOVASCULAR: As above in the HPI. GASTROINTESTINAL: No diarrhea or vomiting. GENITOURINARY: No burning, frequency, urgency. CENTRAL NERVOUS SYSTEM: No history of TIA, CVA or seizure disorder. ENDOCRINOLOGY: No history of diabetes and/or hypothyroidism. PHYSICAL EXAMINATION: VITAL SIGNS: Blood pressure 116/50, heart rate of 50, afebrile. Room air saturation 98. GENERAL: Awake, alert, in no acute distress. HEENT: Head is normocephalic, atraumatic. Pupils equal and reactive. Oral mucosa pink, moist. NECK: Supple. No JVD. HEART SOUNDS: S1, S2. Regular rate and rhythm. No rubs, murmurs or gallops. LUNGS: Clear to auscultation. No wheezes, rales or rhonchi. ABDOMEN: Soft, nontender. No masses or organomegaly. EXTREMITIES: No cyanosis, clubbing, or edema. LABORATORY DATA: Hemoglobin 14, hematocrit of 43, white cell count is 7.6, platelet count of 244. Sodium 144, potassium 3.4, BUN is 16, creatinine 0.93. Troponin 1.77. IMAGING STUDIES: Chest x-ray is unremarkable. CTA showed no mediastinal or hilar adenopathy or mass. EKG: Sinus rhythm with some T-wave inversions inferior leads. ASSESSMENT AND PLAN: This is a 71-year-old male, visiting from the [facility], admitted with non-ST elevation myocardial infarction, underwent cardiac catheterization, multivessel disease, cardiac films have been evaluated by Roger Real MD PLAN: The plan will be for coronary artery bypass grafting x3-4 on Thursday, September 14. The procedures, alternatives, risks were discussed with the patient. STS data will be documented once we receive the echo report. DOMINICK Griffin MD JRT/AP , 03:42 PM , 04:23 PM
[2017-09-11] MEDS: SODIUM CHLOR 0.9% 1000 ML INJ 1,000 ML IV SCH (18:00)
[2017-09-11 18:34] LABS: AUTOMATED NEUTROPHIL # 5.3 TH/MM3 (1.8-7.7); BASOPHIL % 0.6 % (0.0-2.0); EOSINOPHIL # 0.1 TH/MM3 (0-0.4); EOSINOPHIL % 1.8 % (0.0-4.0); HEMATOCRIT 42.3 % (39.0-51.0); HEMOGLOBIN 14.4 GM/DL (13.0-17.0); LYMPH % 12.4 % (9.0-44.0); LYMPHOCYTE # 0.9 TH/MM3 (1.0-4.8); MEAN CELL VOLUME 96.7 FL (80.0-100.0); MEAN CORPUSCULAR HGB CONC 34.1 % (32.0-36.0); MONO % 11.5 % (0.0-8.0); MONOCYTE # 0.8 TH/MM3 (0-0.9); NEUT % 73.7 % (16.0-70.0); PLATELET COUNT 238 TH/MM3 (150-450); RED BLOOD COUNT 4.38 MIL/MM3 (4.50-5.90); RED CELL DISTRIBUTION WIDTH 14.7 % (11.6-17.2); WHITE BLOOD COUNT 7.2 TH/MM3 (4.0-11.0)
[2017-09-11 18:59] LABS: BICARBONATE 28.7 MEQ/L (21.0-32.0); CALCIUM 8.2 MG/DL (8.5-10.1); CREATININE 0.9 MG/DL (0.60-1.30)
[2017-09-11 19:18] LABS: TROPONIN I 2.89 NG/ML (0.02-0.05)
[2017-09-11] MEDS: ATORVASTATIN 80 MG TAB PO SCH (20:11)
[2017-09-11] MEDS: PANTOPRAZOLE SODIUM 40 MG VIAL IV PUSH SCH (20:12)
--- NOTE | 2017-09-11 20:46 | RADRPT ---
EXAM DATE/TIME: 09/11/2017 18:51 [facility] COMPARISON: No previous studies available for comparison. INDICATIONS : Preop cardiac surgery. MEDICAL HISTORY : Hypertension. Hernia, hiatal. stomach cancer SURGICAL HISTORY : Cardiac catheterization. Gastrectomy. Right hip replacement. Hernia repair. ENCOUNTER: Initial ACUITY: 1 day PAIN SCORE: 0/10 LOCATION: Bilateral leg. GREATER SAPHENOUS VEIN THIGH: PROXIMAL: Right 7 mm Left 8 mm MID: Right 4 mm Left 4 mm DISTAL: Right 3 mm Left 4 mm CALF: PROXIMAL: Right 2 mm Left 2 mm MID: Right 2 mm Left Non-visualized DISTAL: Right 3 mm Left 1 mm FINDINGS: The venous system of the lower extremities are patent by color Doppler imaging. Measurements of the leg veins (in mm) are listed above. CONCLUSION: Venous mapping as above. Ravinder Breaux MD FACR on September 11, 2017 at 20:44 Board Certified Radiologist. This report was verified electronically.
--- NOTE | 2017-09-11 20:47 | RADRPT ---
EXAM DATE/TIME: 09/11/2017 18:51 [facility] COMPARISON: No previous studies available for comparison. INDICATIONS : Preop cardiac surgery. MEDICAL HISTORY : Hypertension. Hernia, hiatal. stomach cancer SURGICAL HISTORY : Cardiac catheterization. . Gastrectomy. Right hip replacement. Hernia repair. ENCOUNTER: Initial ACUITY: 1 day PAIN SCORE: 0/10 LOCATION: Bilateral leg. TECHNIQUE: Venous ultrasound of the left and right leg was performed from the inguinal ligament to the proximal calf. Real-time, color Doppler and spectral tracing, compression and augmentation techniques were us ed. FINDINGS: RIGHT LEG: There is normal compressibility of the deep venous system from the inguinal region to the proximal ca lf. No echogenic clot is seen in the lumen of the common femoral, femoral, popliteal, and posterior tibial veins. There is a normal response of the venous system to proximal and distal augmentation an d respiration. LEFT LEG: There is normal compressibility of the deep venous system from the inguinal region to the proximal ca lf. No echogenic clot is seen in the lumen of the common femoral, femoral, popliteal, and posterior tibial veins. There is a normal response of the venous system to proximal and distal augmentation an d respiration. CONCLUSION: Negative for deep venous thrombosis. Ravinder Breaux MD FACR on September 11, 2017 at 20:44 Board Certified Radiologist. This report was verified electronically.
--- NOTE | 2017-09-11 20:47 | RADRPT ---
EXAM DATE/TIME: 09/11/2017 19:19 [facility] COMPARISON: No previous studies available for comparison. INDICATIONS : Preop cardiac surgery. MEDICAL HISTORY : Hypertension. Hernia, hiatal. stomach cancer. SURGICAL HISTORY : Cardiac catheterization. . Gastrectomy. Right hip replacement. Hernia repair. ENCOUNTER: Initial ACUITY: 1 day PAIN SCORE: 0/10 LOCATION: Bilateral neck PEAK SYSTOLIC VELOCITIES (cm/sec): ICA/CCA RATIO: Right: 1.2 Left: 1.2 ICA: Right: 84 Left: 92 CCA: Right: 68 Left: 74 ECA: Right: 131 Left: 85 VERTEBRAL: Right: 47 antegrade Left: 61 antegrade Elevated flow velocities and ICA/CCA ratios have been found to correlate with increased degrees of vessel stenosis, calculated as percentage of diameter relative to a normal segment of distal ICA/CCA FINDINGS: RIGHT CAROTID: No significant stenosis is visualized. The waveforms are within normal limits. LEFT CAROTID: No significant stenosis is visualized. The waveforms are within normal limits. VERTEBRAL ARTERIES: Antegrade flow is seen in both vertebral arteries. MISCELLANEOUS: None. CONCLUSION: Negative for hemodynamically significant stenosis. Ravinder Breaux MD FACR on September 11, 2017 at 20:44 Board Certified Radiologist. This report was verified electronically.
[2017-09-11] MEDS ORDERED: SODIUM CHLORIDE 0.9% FLUSH 10 ML FLUSH IV FLUSH SCH (21:00)
--- NOTE | 2017-09-11 22:32 | MB ---
cc: Joseph Reese DO DATE: 09/11/2017 CHIEF COMPLAINT: Chest pain, NSTEMI. HISTORY OF PRESENT ILLNESS: Pavel Whitman is a pleasant 71-year-old male who presented to [facility] on 09/10/2017 due to chest pain. He is down visiting from [place] with his family and started noticing chest pain the day before. It got so much that he came to the emergency room and was found to have an elevated troponin. In seeing him, he is still having off and on chest pain, but denies shortness of breath, nausea, vomiting or diaphoresis. He states that the chest pain is substernal in nature and radiates up both sides of his neck. PAST MEDICAL HISTORY: 1. History of carcinoid tumor. 2. Hypertension. 3. Hyperlipidemia. 4. GERD. PAST SURGICAL HISTORY: 1. Partial gastrectomy. 2. Right hip surgery. ALLERGIES: NAPROXEN. MEDICATIONS: 1. Lipitor 10 mg every night. 2. Bisoprolol/hydrochlorothiazide 10/6.25 daily. 3. ____ 81 mg daily. 4. Diclofenac 75 mg daily. FAMILY HISTORY: Denies premature coronary artery disease or sudden cardiac within the family. SOCIAL HISTORY: The patient previously smoked but quit a number of years ago. He drinks around 1 alcoholic drink a day. Denies drug abuse. REVIEW OF SYSTEMS: Fourteen systems were reviewed including osteopathic. Pertinent positives and negatives above, otherwise negative. PHYSICAL EXAMINATION: VITAL SIGNS: Temperature 97.9, heart rate 60, blood pressure 120/66, respirations 16, pulse oximetry 96% on room air. GENERAL: The patient appears well in no acute distress. Alert, awake and oriented x 3. HEENT: Extraocular muscles intact. Mucous membranes moist. NECK: Supple. No JVD at 45 degrees. No carotid bruits heard bilaterally. Carotid upstroke is brisk in nature. HEART: Regular rate and rhythm. Positive first and second heart sounds with no noted murmurs, gallops or rubs. LUNGS: Clear to auscultation bilaterally. No wheezes, rales or rhonchi. ABDOMEN: Soft, nontender, nondistended, no organomegaly noted. EXTREMITIES: Show no clubbing, cyanosis or edema. Femoral and distal pulses intact bilaterally. NEUROLOGIC: No focal deficits. SKIN: Warm, dry and intact. OSTEOPATHIC: No kyphoscoliosis, lordosis or paraspinal tender points. LABORATORY DATA: Hemoglobin 14.9, hematocrit 43.5, platelets 244. Potassium 3.4, BUN 16, creatinine 0.93. Troponin 1.77. Electrocardiogram (09/10/2017 at 2015) sinus rhythm with first degree AV block, ST-T wave changes laterally, possibly due to ischemia. IMPRESSIONS: 1. Chest pain consistent with coronary insufficiency. 2. Non-ST elevation myocardial infarction. 3. History of carcinoid tumor with partial gastrectomy. 4. Hypertension. 5. Hyperlipidemia. RECOMMENDATIONS 1. Mr. Whitman presented with chest pain concerning for coronary insufficiency and was found to have an elevated troponin. Because of this, he will be recommended coronary catheterization. 2. We will plan on stopping his heparin drip trousseau consultant to the liaison inspection laboratory assistant. 3. We will check a 2-D echo to look at his overall left ventricular function, cardiac structure and possible valvulopathies. 4. Further recommendations will be made after coronary visualization. Thank you for allowing me to see Pavel Whitman. If there are any questions, please do not hesitate to call. Joseph Reese DO VGP/rt , 09:51 PM , 10:31 PM
--- NOTE | 2017-09-11 23:03 | MA ---
cc: Joseph Reese DO DATE: 09/11/2017 PROCEDURE: Left heart catheterization, coronary angiogram, moderate sedation 15 minutes. PREPROCEDURE DIAGNOSES: Non-ST elevation myocardial infarction, coronary insufficiency. POSTPROCEDURE DIAGNOSES: Multivessel coronary artery disease, non-ST elevation myocardial infarction. MEDICATIONS: Versed 0.5 mg, fentanyl 25 mcg, heparin 3300 units., nitroglycerin 200 mcg, restarted heparin drip, started nitroglycerin drip at 5 mcg per minute. CONTRAST USED: 40 mL FLUOROSCOPY: 2.9 minutes. MODERATE SEDATION: 15 minutes. ESTIMATED BLOOD LOSS: 10 mL PROCEDURAL SUMMARY: Pavel Whitman is a pleasant 71-year-old male who presented to [facility] Emergency Room due to chest pain. He was found to have an elevated troponin and because of this, he was recommended cardiac catheterization. Risks, benefits and alternatives were explained to him and he consented as such. He was brought to the lab and prepped in the usual sterile fashion. The right radial artery was accessed using a modified Seldinger technique and placement of a 5/6 [place] sheath. This was easily aspirated and flushed. A JR4 was advanced over a J-wire to the ascending aorta and across the aortic valve for measurement of left ventricular pressure. This was pulled back across the aortic valve showing no significant gradient of aortic stenosis. JR4 was used for selective angiography of the right coronary artery system. This is exchanged out for a JL3.5, which was used for selective angiography of the left coronary artery system. JL3.5 was removed over a J wire. A radial band was placed over the arteriotomy site for hemostasis. The patient was started on a heparin and nitroglycerin drip. He left the laboratory operations coordinator cardiovascularly stable. FINDINGS: LEFT MAIN: Normal size vessel with adequate reflux and no significant disease. It trifurcates into an LAD, circumflex, and ramus. LEFT ANTERIOR DESCENDING: A small to moderate sized vessel with diffuse 70% disease throughout the proximal portion and a 90% stenosis in the mid portion. Distally, the vessel has no significant disease. It gives off 2 small diagonals. RAMUS: Overall small vessel with a 99% stenosis in the mid portion. After this, it bifurcates into an upper and lower branch with MASON 1 flow noted. LEFT CIRCUMFLEX: Small to moderate sized vessel with diffuse 50% disease throughout the mid portion. It gives off 1 obtuse marginal, which is overall small and tortuous. It appears that the second obtuse marginal is 100% occluded, but overall around 1 mm in size. RIGHT CORONARY ARTERY: Moderate to large size vessel with a 90% stenosis in the proximal to mid portion. Distally it gives off a PDA with a small PLB. LEFT VENTRICULAR END DIASTOLIC PRESSURE: 12. IMPRESSIONS: 1. Multivessel coronary artery disease. 2. Coronary insufficiency. 3. Non-ST elevation myocardial infarction. RECOMMENDATIONS: 1. Mr. Whitman presented with chest pain concerning for coronary insufficiency and was found to have multivessel disease and because of this he will be recommended coronary artery bypass grafting. 2. I discussed the case with Dr. Real who will see the patient in consultation. 3. We will check a 2-D echo to look at his overall left ventricular function, cardiac structure and possible valvulopathies. 4. He has since been started on a heparin drip and nitroglycerin drip. If at anytime he has chest pain unrelieved by medication, hemodynamically or electrically unstable, then consideration will be made for further support, along with earlier consideration of coronary artery bypass grafting. Thank you for allowing me to see Pavel Whitman. If there any questions, please do not hesitate to call. Joseph Reese DO VGP/rt , 10:26 PM , 11:02 PM
[2017-09-12] VITALS (31 sets, daily range): BP systolic 112–179; BP diastolic 38–102; PULSE 51–78; RESP 16–22; TEMP 98–99.6; O2SAT 91–99
[2017-09-12] MEDS: HEPARIN-D5W 25,000 U/250 ML 250 ML IV PRN (06:26)
[2017-09-12 07:05] LABS: ALBUMIN 3.2 GM/DL (3.4-5.0); AST (GOT) 35 U/L (15-37); AUTOMATED NEUTROPHIL # 4.4 TH/MM3 (1.8-7.7); BASOPHIL % 0.6 % (0.0-2.0); BICARBONATE 26.2 MEQ/L (21.0-32.0); BLOOD UREA NITROGEN 10 MG/DL (7-18); CALCIUM 8.7 MG/DL (8.5-10.1); CHLORIDE 103 MEQ/L (98-107); EOSINOPHIL # 0.2 TH/MM3 (0-0.4); EOSINOPHIL % 2.2 % (0.0-4.0); GLOMERULAR FILTRATION RATE 83 ML/MIN (>89); GLUCOSE,RANDOM 89 MG/DL (74-106); HEMATOCRIT 41.2 % (39.0-51.0); HEMOGLOBIN 14.1 GM/DL (13.0-17.0); LYMPH % 17.5 % (9.0-44.0); LYMPHOCYTE # 1.2 TH/MM3 (1.0-4.8); MEAN CELL VOLUME 97.4 FL (80.0-100.0); MEAN CORPUSCULAR HEMOGLOBIN 33.4 PG (27.0-34.0); MEAN CORPUSCULAR HGB CONC 34.3 % (32.0-36.0); MEAN PLATELET VOLUME 8.9 FL (7.0-11.0); MONO % 14.4 % (0.0-8.0); NEUT % 65.3 % (16.0-70.0); PLATELET COUNT 218 TH/MM3 (150-450); RED BLOOD COUNT 4.23 MIL/MM3 (4.50-5.90); RED CELL DISTRIBUTION WIDTH 14.7 % (11.6-17.2); SODIUM (NA) 138 MEQ/L (136-145); WHITE BLOOD COUNT 6.8 TH/MM3 (4.0-11.0)
[2017-09-12 07:12] LABS: ALKALINE PHOSPHATASE 66 U/L (45-117); ALT (GPT) 30 U/L (12-78); TOTAL BILIRUBIN ADULT 1.1 MG/DL (0.2-1.0); TOTAL PROTEIN 6.2 GM/DL (6.4-8.2)
[2017-09-12 08:03] LABS: TROPONIN I 3.93 NG/ML (0.02-0.05)
[2017-09-12] MEDS: ASPIRIN 81 MG CHEW TAB CHEW SCH (09:00)
[2017-09-12] MEDS: SODIUM CHLORIDE 0.9% FLUSH 10 ML FLUSH IV FLUSH SCH ×2 (09:00→20:51)
[2017-09-12] MEDS: PANTOPRAZOLE SODIUM 40 MG VIAL IV PUSH SCH ×2 (09:56→20:50)
[2017-09-12] MEDS: MORPHINE SULFATE 4 MG/ML INJ IV PUSH PRN ×2 (10:29→22:18)
[2017-09-12] MEDS: NITROGLYCERIN-D5W 50 MG/250 ML 250 ML IV PRN ×6 (10:40→14:14)
--- NOTE | 2017-09-12 11:40 | PD.CARD.PN ---
Subjective Subjective Remarks No events overnight This morning after eating had immense pain in the chest Objective Medications Current Medications Medications (Trade) Dose Ordered Sig/Thang Route Start Time Stop Time Status Last Admin (NS Flush) 2 ml UNSCH PRN IV FLUSH 09/10/17 16:45 (NS Flush) 2 ml BID IV FLUSH 09/10/17 21:00 09/12/17 09:00 (Narcan Inj) 0.4 mg UNSCH PRN IV PUSH 09/10/17 16:45 (Nitrostat Sl) 0.4 mg Q5M PRN SL 09/10/17 17:00 Heparin Sodium/ Dextrose 250 ml @ 10 mls/hr TITRATE PRN IV 09/10/17 17:00 09/12/17 06:26 (Protonix Inj) 40 mg Q12HR IV PUSH 09/10/17 17:00 09/12/17 09:56 (Morphine Inj) 4 mg Q3H PRN IV PUSH 09/10/17 20:45 09/12/17 10:29 Sodium Chloride 1,000 ml @ 70 mls/hr [id number] IV 09/10/17 20:45 09/10/17 22:18 (Pill Splitter) 1 ea UNSCH PRN OTHER 09/10/17 21:45 (Lipitor) 80 mg HS PO 09/11/17 21:00 09/11/17 20:11 Nitroglycerin/ Dextrose 250 ml @ 1.5 mls/hr TITRATE PRN IV 09/11/17 12:00 09/12/17 10:49 (Aspirin Chew) 81 mg DAILY CHEW 09/12/17 09:00 09/12/17 09:00 Papaverine HCl 60 mg/Nitroglycerin 100 mcg/Diltiazem HCl 100 mg/Sodium Chloride 100 ml @ 0 mls/hr MACHINE OPERATOR PICKER IRRIGATION 09/11/17 13:45 09/18/17 13:44 Cefazolin Sodium 500 mg/Sodium Chloride 505 ml @ 0 mls/hr MACHINE OPERATOR PICKER IRRIGATION 09/11/17 13:45 09/18/17 13:44 Cefazolin Sodium/ Dextrose 50 ml @ 100 mls/hr MACHINE OPERATOR PICKER IV 09/11/17 13:45 09/18/17 13:44 (Lopressor) 12.5 mg MACHINE OPERATOR PICKER PO 09/11/17 13:45 09/18/17 13:44 (Hibiclens 4% Top Soln) 1 applic MACHINE OPERATOR PICKER TOPICAL 09/11/17 13:45 09/18/17 13:44 Insulin Human Regular 100 units/ Sodium Chloride 100 ml @ 3 mls/hr TITRATE PRN IV 09/11/17 13:45 09/18/17 13:44 (D50w (Vial) Inj) 50 ml UNSCH PRN IV PUSH 09/11/17 13:45 Vital Signs / I&O Vital Signs Date Time Temp Pulse Resp B/P (MAP) Pulse Ox O2 Delivery O2 Flow Rate FiO2 09/12/17 10:49 65 171/93 09/12/17 10:47 63 172/92 09/12/17 10:44 74 175/90 09/12/17 10:43 68 179/102 09/12/17 10:40 72 192/98 09/12/17 07:46 98.6 57 18 121/70 (87) 98 09/12/17 06:00 52 09/12/17 05:00 57 09/12/17 04:00 54 09/12/17 04:00 98.2 54 18 119/67 (84) 93 09/12/17 04:00 Nasal Cannula 2.00 09/12/17 03:00 55 09/12/17 02:00 54 09/12/17 01:00 53 09/12/17 00:00 98.4 51 18 116/67 (83) 93 09/12/17 00:00 Room Air 09/12/17 00:00 51 09/11/17 23:00 53 09/11/17 22:00 54 09/11/17 21:00 51 09/11/17 20:00 57 09/11/17 20:00 98.1 57 18 126/78 (94) 95 09/11/17 20:00 Room Air 09/11/17 18:00 48 09/11/17 17:05 16 09/11/17 17:00 51 09/11/17 16:00 98.2 55 18 136/81 (99) 96 09/11/17 16:00 52 09/11/17 13:41 50 116/52 I/O 09/11/17 09/11/17 09/11/17 09/12/17 09/12/17 09/12/17 07:00 15:00 23:00 07:00 15:00 23:00 Intake Total 0 ml 1100 ml Output Total 300 ml 200 ml 600 ml Balance -300 ml -200 ml 500 ml Intake Oral 0 ml 240 ml IV Total 860 ml Output Urine Total 300 ml 200 ml 600 ml # Voids 1 # Bowel Movements 0 0 Physical Exam GENERAL: Moderate distress due to chest pain, AAOx3 SKIN: Warm and dry. HEAD: Atraumatic. Normocephalic. EYES: Pupils equal and round. No scleral icterus. No injection or drainage. ENT: No nasal bleeding or discharge. Mucous membranes pink and moist. NECK: Trachea midline. No JVD. CARDIOVASCULAR: Regular rate and rhythm. RESPIRATORY: No accessory muscle use. Clear to auscultation. Breath sounds equal bilaterally. GASTROINTESTINAL: Abdomen soft, non-tender, nondistended. Hepatic and splenic margins not palpable. MUSCULOSKELETAL: Extremities without clubbing, cyanosis, or edema. No obvious deformities. NEUROLOGICAL: Awake and alert. No obvious cranial nerve deficits. Motor grossly within normal limits. Five out of 5 muscle strength in the arms and legs. Normal speech. PSYCHIATRIC: Appropriate mood and affect; insight and judgment normal. Laboratory Laboratory Tests Test 09/11/17 14:42 09/11/17 17:43 09/12/17 05:02 Nasal Screen MRSA (PCR) MRSA NOT DETECTED White Blood Count 7.2 TH/MM3 6.8 TH/MM3 Red Blood Count 4.38 MIL/MM3 4.23 MIL/MM3 Hemoglobin 14.4 GM/DL 14.1 GM/DL Hematocrit 42.3 % 41.2 % Mean Corpuscular Volume 96.7 FL 97.4 FL Mean Corpuscular Hemoglobin 33.0 PG 33.4 PG Mean Corpuscular Hemoglobin Concent 34.1 % 34.3 % Red Cell Distribution Width 14.7 % 14.7 % Platelet Count 238 TH/MM3 218 TH/MM3 Mean Platelet Volume 9.0 FL 8.9 FL Neutrophils (%) (Auto) 73.7 % 65.3 % Lymphocytes (%) (Auto) 12.4 % 17.5 % Monocytes (%) (Auto) 11.5 % 14.4 % Eosinophils (%) (Auto) 1.8 % 2.2 % Basophils (%) (Auto) 0.6 % 0.6 % Neutrophils # (Auto) 5.3 TH/MM3 4.4 TH/MM3 Lymphocytes # (Auto) 0.9 TH/MM3 1.2 TH/MM3 Monocytes # (Auto) 0.8 TH/MM3 1.0 TH/MM3 Eosinophils # (Auto) 0.1 TH/MM3 0.2 TH/MM3 Basophils # (Auto) 0.0 TH/MM3 0.0 TH/MM3 CBC Comment DIFF FINAL DIFF FINAL Differential Comment Activated Partial Thromboplast Time 43.5 SEC 42.6 SEC Blood Urea Nitrogen 12 MG/DL 10 MG/DL Creatinine 0.90 MG/DL 0.90 MG/DL Random Glucose 91 MG/DL 89 MG/DL Calcium Level 8.2 MG/DL 8.7 MG/DL Sodium Level 137 MEQ/L 138 MEQ/L Potassium Level 4.1 MEQ/L 3.8 MEQ/L Chloride Level 101 MEQ/L 103 MEQ/L Carbon Dioxide Level 28.7 MEQ/L 26.2 MEQ/L Anion Gap 7 MEQ/L 9 MEQ/L Estimat Glomerular Filtration Rate 83 ML/MIN 83 ML/MIN Total Creatine Kinase 179 U/L Troponin I 2.89 NG/ML 3.93 NG/ML Total Protein 6.2 GM/DL Albumin 3.2 GM/DL Alkaline Phosphatase 66 U/L Aspartate Amino Transf (AST/SGOT) 35 U/L Alanine Aminotransferase (ALT/SGPT) 30 U/L Total Bilirubin 1.1 MG/DL Assessment and Plan Problem List: (1) NSTEMI (non-ST elevated myocardial infarction) ICD Codes: I21.4 - Non-ST elevation (NSTEMI) myocardial infarction (2) Multi-vessel coronary artery stenosis ICD Codes: I25.10 - Atherosclerotic heart disease of [place] coronary artery without angina pectoris (3) Chest pain ICD Codes: R07.9 - Chest pain, unspecified Status: Acute (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 Real and Dr. Gao Con't Nitro/Heparin drip 2) Pain after eating may be due to shunting of blood to the gut Given Morphine and increased Nitro drip Re-evaluated, doing better without chest pain at this time 3) Echo pending Problem Qualifiers (1) Chest pain: Qualified Codes: R07.9 - Chest pain, unspecified Joseph Reese DO Sep 12, 2017 11:40
--- NOTE | 2017-09-12 13:26 | HHI.PR ---
Subjective Remarks 71-year-old male with past medical history significant for carcinoid tumor status post resection, hypertension, hyperlipidemia and GERD presents to the emergency department with evaluation of chest pain. The patient reports that the chest pain started last night. Describes it as substernal and states that it radiates up his bilateral neck. He endorses an episode of diaphoresis around 10 AM. Denies increased shortness of breath. No abdominal pain. No nausea/vomiting/diarrhea. No weakness or lateralizing signs/symptoms. 4-6 Chest pain remains when seen this morning. Troponin has trended from 0.2 to 1.7. Heart catheter plan today. 4-7 on nitroglycerin drip. Will follow throughout the admission. Will need coronary artery bypass graft as scheduled on Thursday Continues on nitroglycerin drip Discussed with RN and patient and family and case management as well as cardiology monitor for need to move up surgery Objective Vitals Vital Signs Date Time Temp Pulse Resp B/P (MAP) Pulse Ox O2 Delivery O2 Flow Rate FiO2 09/12/17 11:35 61 20 125/69 (87) 93 09/12/17 11:25 65 20 131/75 (93) 98 09/12/17 11:20 67 20 129/75 (93) 94 09/12/17 11:10 65 20 137/75 (95) 98 09/12/17 11:05 98.1 57 16 173/95 (121) 96 09/12/17 11:00 59 20 144/79 (100) 95 09/12/17 10:50 22 170/87 (114) 98 09/12/17 10:49 65 171/93 09/12/17 10:47 63 172/92 09/12/17 10:45 70 20 179/94 (122) 98 09/12/17 10:44 74 175/90 09/12/17 10:43 71 20 179/102 (127) 99 09/12/17 10:43 68 179/102 09/12/17 10:40 72 192/98 09/12/17 08:05 100 4.00 09/12/17 07:46 98.6 57 18 121/70 (87) 98 09/12/17 06:00 52 09/12/17 05:00 57 09/12/17 04:00 54 09/12/17 04:00 98.2 54 18 119/67 (84) 93 4/7/18 04:00 Nasal Cannula 2.00 09/12/17 03:00 55 09/12/17 02:00 54 09/12/17 01:00 53 09/12/17 00:00 98.4 51 18 116/67 (83) 93 09/12/17 00:00 Room Air 09/12/17 00:00 51 09/11/17 23:00 53 09/11/17 22:00 54 09/11/17 21:00 51 09/11/17 20:00 57 09/11/17 20:00 98.1 57 18 126/78 (94) 95 09/11/17 20:00 Room Air 09/11/17 18:00 48 09/11/17 17:05 16 09/11/17 17:00 51 09/11/17 16:00 98.2 55 18 136/81 (99) 96 09/11/17 16:00 52 09/11/17 13:41 50 116/52 I/O 09/11/17 09/11/17 09/11/17 09/12/17 09/12/17 09/12/17 07:00 15:00 23:00 07:00 15:00 23:00 Intake Total 0 ml 1100 ml Output Total 300 ml 200 ml 600 ml Balance -300 ml -200 ml 500 ml Intake Oral 0 ml 240 ml IV Total 860 ml Output Urine Total 300 ml 200 ml 600 ml # Voids 1 # Bowel Movements 0 0 Result Diagram: 09/12/17 0502 09/12/17 0502 Other Results Laboratory Tests Test 09/10/17 14:10 09/10/17 20:10 09/11/17 00:31 09/11/17 11:04 White Blood Count 7.6 TH/MM3 Red Blood Count 4.50 MIL/MM3 Hemoglobin 14.9 GM/DL Hematocrit 43.5 % Mean Corpuscular Volume 96.8 FL Mean Corpuscular Hemoglobin 33.1 PG Mean Corpuscular Hemoglobin Concent 34.2 % Red Cell Distribution Width 14.6 % Platelet Count 244 TH/MM3 Mean Platelet Volume 8.7 FL Neutrophils (%) (Auto) 78.4 % Lymphocytes (%) (Auto) 10.1 % Monocytes (%) (Auto) 9.5 % Eosinophils (%) (Auto) 1.4 % Basophils (%) (Auto) 0.6 % Neutrophils # (Auto) 6.0 TH/MM3 Lymphocytes # (Auto) 0.8 TH/MM3 Monocytes # (Auto) 0.7 TH/MM3 Eosinophils # (Auto) 0.1 TH/MM3 Basophils # (Auto) 0.0 TH/MM3 CBC Comment DIFF FINAL Differential Comment Prothrombin Time 10.5 SEC Prothromb Time International Ratio 1.0 RATIO Activated Partial Thromboplast Time 25.3 SEC 46.2 SEC Blood Urea Nitrogen 16 MG/DL Creatinine 0.93 MG/DL Random Glucose 93 MG/DL Calcium Level 8.0 MG/DL Sodium Level 144 MEQ/L Potassium Level 3.4 MEQ/L Chloride Level 110 MEQ/L Carbon Dioxide Level 23.4 MEQ/L Anion Gap 11 MEQ/L Estimat Glomerular Filtration Rate 80 ML/MIN Total Bilirubin 1.0 MG/DL Direct Bilirubin 0.1 MG/DL Indirect Bilirubin 0.9 MG/DL Aspartate Amino Transf (AST/SGOT) 22 U/L Alanine Aminotransferase (ALT/SGPT) 35 U/L Alkaline Phosphatase 64 U/L Total Creatine Kinase 59 U/L 123 U/L Troponin I 0.20 NG/ML 1.77 NG/ML Total Protein 6.4 GM/DL Albumin 3.3 GM/DL Lipase 97 U/L Urine Color LIGHT-YELLOW Urine Turbidity CLEAR Urine pH 7.0 Urine Specific [place] 1.027 Urine Protein NEG mg/dL Urine Glucose (UA) NEG mg/dL Urine Ketones NEG mg/dL Urine Occult Blood NEG Urine Nitrite NEG Urine Bilirubin NEG Urine Urobilinogen LESS THAN 2.0 MG/DL Urine Leukocyte Esterase NEG Urine RBC LESS THAN 1 /hpf Urine WBC LESS THAN 1 /hpf Microscopic Urinalysis Comment CULT NOT INDICATED Test 09/11/17 14:42 09/11/17 17:43 09/12/17 05:02 Nasal Screen MRSA (PCR) MRSA NOT DETECTED White Blood Count 7.2 TH/MM3 6.8 TH/MM3 Red Blood Count 4.38 MIL/MM3 4.23 MIL/MM3 Hemoglobin 14.4 GM/DL 14.1 GM/DL Hematocrit 42.3 % 41.2 % Mean Corpuscular Volume 96.7 FL 97.4 FL Mean Corpuscular Hemoglobin 33.0 PG 33.4 PG Mean Corpuscular Hemoglobin Concent 34.1 % 34.3 % Red Cell Distribution Width 14.7 % 14.7 % Platelet Count 238 TH/MM3 218 TH/MM3 Mean Platelet Volume 9.0 FL 8.9 FL Neutrophils (%) (Auto) 73.7 % 65.3 % Lymphocytes (%) (Auto) 12.4 % 17.5 % Monocytes (%) (Auto) 11.5 % 14.4 % Eosinophils (%) (Auto) 1.8 % 2.2 % Basophils (%) (Auto) 0.6 % 0.6 % Neutrophils # (Auto) 5.3 TH/MM3 4.4 TH/MM3 Lymphocytes # (Auto) 0.9 TH/MM3 1.2 TH/MM3 Monocytes # (Auto) 0.8 TH/MM3 1.0 TH/MM3 Eosinophils # (Auto) 0.1 TH/MM3 0.2 TH/MM3 Basophils # (Auto) 0.0 TH/MM3 0.0 TH/MM3 CBC Comment DIFF FINAL DIFF FINAL Differential Comment Activated Partial Thromboplast Time 43.5 SEC 42.6 SEC Blood Urea Nitrogen 12 MG/DL 10 MG/DL Creatinine 0.90 MG/DL 0.90 MG/DL Random Glucose 91 MG/DL 89 MG/DL Calcium Level 8.2 MG/DL 8.7 MG/DL Sodium Level 137 MEQ/L 138 MEQ/L Potassium Level 4.1 MEQ/L 3.8 MEQ/L Chloride Level 101 MEQ/L 103 MEQ/L Carbon Dioxide Level 28.7 MEQ/L 26.2 MEQ/L Anion Gap 7 MEQ/L 9 MEQ/L Estimat Glomerular Filtration Rate 83 ML/MIN 83 ML/MIN Total Creatine Kinase 179 U/L Troponin I 2.89 NG/ML 3.93 NG/ML Total Protein 6.2 GM/DL Albumin 3.2 GM/DL Alkaline Phosphatase 66 U/L Aspartate Amino Transf (AST/SGOT) 35 U/L Alanine Aminotransferase (ALT/SGPT) 30 U/L Total Bilirubin 1.1 MG/DL Imaging Last Impressions Lower Extremity Ultrasound 09/11/17 0000 Signed Impressions: Service Date/Time: Monday, September 11, 2017 18:51 - CONCLUSION: Venous mapping as above. Ravinder Breaux MD FACR Carotid Artery Ultrasound 09/11/17 0000 Signed Impressions: Service Date/Time: Monday, September 11, 2017 19:19 - CONCLUSION: Negative for hemodynamically significant stenosis. Ravinder Breaux MD FACR Chest X-Ray 09/10/17 1356 Signed Impressions: Service Date/Time: September 14:37 - CONCLUSION: 1. Cardiomegaly. No acute pulmonary disease. Steve Naqvi MD CT Angiography 09/10/17 0000 Signed Impressions: Service Date/Time: September 16:08 - CONCLUSION: The study is negative for pulmonary embolism. Arie Gordillo MD Objective Remarks GENERAL: Alert and oriented talkative and cooperative had been having chest pain earlier is now on a higher nitro drip at 80 mcg/h SKIN: Warm and dry. HEAD: Atraumatic. Normocephalic. EYES: Pupils equal and round. No scleral icterus. No injection or drainage. Extraocular muscles intact ENT: No nasal bleeding or discharge. Mucous membranes pink and moist. Tongue is midline NECK: Trachea midline. No JVD. Supple CARDIOVASCULAR: Regular rate and rhythm. S1-S2 no S3-S4 no heave or thrill or rub or gallop RESPIRATORY: No accessory muscle use. Clear to auscultation. Breath sounds equal bilaterally. GASTROINTESTINAL: Abdomen soft, non-tender, nondistended. Hepatic and splenic margins not palpable. MUSCULOSKELETAL: Extremities without clubbing, cyanosis, or edema. No obvious deformities. NEUROLOGICAL: Awake and alert. No obvious cranial nerve deficits. Motor grossly within normal limits. Five out of 5 muscle strength in the arms and legs. Normal speech. PSYCHIATRIC: Appropriate mood and affect; insight and judgment normal. Procedures 09/11/2017 PROCEDURE: Left heart catheterization, coronary angiogram, moderate sedation 15 minutes. PREPROCEDURE DIAGNOSES: Non-ST elevation myocardial infarction, coronary insufficiency. POSTPROCEDURE DIAGNOSES: Multivessel coronary artery disease, non-ST elevation myocardial infarction. MEDICATIONS: Versed 0.5 mg, fentanyl 25 mcg, heparin 3300 units., nitroglycerin 200 mcg, restarted heparin drip, started nitroglycerin drip at 5 mcg per minute. CONTRAST USED: 40 mL FLUOROSCOPY: 2.9 minutes. MODERATE SEDATION: 15 minutes. ESTIMATED BLOOD LOSS: 10 mL PROCEDURAL SUMMARY: Pavel Whitman is a pleasant 71-year-old male who presented to [facility] Emergency Room due to chest pain. He was found to have an elevated troponin and because of this, he was recommended cardiac catheterization. Risks, benefits and alternatives were explained to him and he consented as such. He was brought to the lab and prepped in the usual sterile fashion. The right radial artery was accessed using a modified Seldinger technique and placement of a 5/6 Brazilian Slender sheath. This was easily aspirated and flushed. A JR4 was advanced over a J-wire to the ascending aorta and across the aortic valve for measurement of left ventricular pressure. This was pulled back across the aortic valve showing no significant gradient of aortic stenosis. JR4 was used for selective angiography of the right coronary artery system. This is exchanged out for a JL3.5, which was used for selective angiography of the left coronary artery system. JL3.5 was removed over a J wire. A radial band was placed over the arteriotomy site for hemostasis. The patient was started on a heparin and nitroglycerin drip. He left the cath lab manager cardiovascularly stable. FINDINGS: LEFT MAIN: Normal size vessel with adequate reflux and no significant disease. It trifurcates into an LAD, circumflex, and ramus. LEFT ANTERIOR DESCENDING: A small to moderate sized vessel with diffuse 70% disease throughout the proximal portion and a 90% stenosis in the mid portion. Distally, the vessel has no significant disease. It gives off 2 small diagonals. RAMUS: Overall small vessel with a 99% stenosis in the mid portion. After this, it bifurcates into an upper and lower branch with MAS[place] 1 flow noted. LEFT CIRCUMFLEX: Small to moderate sized vessel with diffuse 50% disease throughout the mid portion. It gives off 1 obtuse marginal, which is overall small and tortuous. It appears that the second obtuse marginal is 100% occluded, but overall around 1 mm in size. RIGHT CORONARY ARTERY: Moderate to large size vessel with a 90% stenosis in the proximal to mid portion. Distally it gives off a PDA with a small PLB. LEFT VENTRICULAR END DIASTOLIC PRESSURE: 12. IMPRESSIONS: 1. Multivessel coronary artery disease. 2. Coronary insufficiency. 3. Non-ST elevation myocardial infarction. RECOMMENDATIONS: 1. Mr. Whitman presented with chest pain concerning for coronary insufficiency and was found to have multivessel disease and because of this he will be recommended coronary artery bypass grafting. 2. I discussed the case with Dr. Real who will see the patient in consultation. 3. We will check a 2-D echo to look at his overall left ventricular function, cardiac structure and possible valvulopathies. 4. He has since been started on a heparin drip and nitroglycerin drip. If at anytime he has chest pain unrelieved by medication, hemodynamically or electrically unstable, then consideration will be made for further support, along with earlier consideration of coronary artery bypass grafting. Thank you for allowing me to see Pavel Whitman. If there any questions, please do not hesitate to call. Medications and IVs Current Medications Pantoprazole Sodium (Protonix Inj) 40 mg ONCE ONCE IVP Last administered on 09/10/17at 14:45; Start 09/10/17 at 14:15; Stop 09/10/17 at 14:16; Status DC Famotidine (Pepcid Inj) 20 mg ONCE ONCE IV PUSH Last administered on 09/10/17at 14:45; Start 09/10/17 at 14:15; Stop 09/10/17 at 14:16; Status DC Aspirin (Aspirin) 325 mg ONCE ONCE PO Last administered on 09/10/17at 15:28; Start 09/10/17 at 15:30; Stop 09/10/17 at 15:31; Status DC Nitroglycerin (Nitrostat Sl) 0.4 mg ONCE ONCE SL Last administered on at 15:28; Start 09/10/17 at 15:30; Stop 09/10/17 at 15:31; Status DC Iohexol (Omnipaque 350 Inj) 75 ml STK-MED ONCE IVCONTRAST Last administered on 09/10/17at 16:13; Start 09/10/17 at 16:12; Stop 09/10/17 at 16:13; Status DC Sodium Chloride (NS Flush) 2 ml UNSCH PRN IV FLUSH FLUSH AFTER USING IV ACCESS ; Start 09/10/17 at 16:45 Sodium Chloride (NS Flush) 2 ml BID IV FLUSH Last administered on 09/12/17at 09: 00; Start 09/10/17 at 21:00 Naloxone HCl (Narcan Inj) 0.4 mg UNSCH PRN IV PUSH SEE LABEL COMMENTS; Start at 16:45 Nitroglycerin (Nitrostat Sl) 0.4 mg Q5M PRN SL CHEST PAIN; Start 09/10/17 at 17: 00 Aspirin (Ecotrin Ec) 325 mg DAILY PO Last administered on 09/11/17 09:00; Start 09/11/17 at 09:00; Stop 09/11/17 at 10:44; Status DC Heparin Sodium (Porcine) (Heparin Inj) 4,000 units ONCE ONCE IV PUSH Last administered on 09/10/17 17:27; Start 09/10/17 at 17:00; Stop 09/10/17 at 17:01; Status DC Heparin Sodium/ Dextrose 250 ml @ 10 mls/hr TITRATE PRN IV Coagulation Management Last administered on 09/12/17 06:26; Start 09/10/17 at 17:00 Pantoprazole Sodium (Protonix Inj) 40 mg Q12HR IV PUSH Last administered on 09/12 09:56; Start 09/10/17 at 17:00 Morphine Sulfate (Morphine Inj) 2 mg Q3H PRN IV PUSH pain >5 Last administered on 09/10/17 18:28; Start 09/10/17 at 17:15; Stop 09/10/17 at 20:40; Status DC Morphine Sulfate (Morphine Inj) 4 mg Q3H PRN IV PUSH pain 6-10 Last administered on 09/12/17 10:29; Start 09/10/17 at 20:45 Atorvastatin Calcium (Lipitor) 10 mg HS PO Last administered on 09/10/17 22:17 ; Start 09/10/17 at 21:00; Stop 09/11/17 at 10:44; Status DC Bisoprolol Fumarate/HCTZ (Ziac 10-6.25 Mg) 1 tab DAILY PO ; Start 09/11/17 at 09: 00; Status Cancel Sodium Chloride 1,000 ml @ 70 mls/hr [id number] IV Last administered on 09/10/17 22:18; Start 09/10/17 at 20:45 Potassium Chloride (KCl) 40 meq ONCE ONCE PO Last administered on 09/10/17 22: 18; Start 09/10/17 at 20:45; Stop 09/10/17 at 21:15; Status DC Bisoprolol Fumarate (Zebeta) 10 mg DAILY PO Last administered on 09/11/17at 09:00 ; Start 09/11/17 at 09:00; Stop 09/11/17 at 10:44; Status DC Hydrochlorothiazide (Hydrodiuril) 6.25 mg DAILY PO Last administered on 09:00; Start 09/11/17 at 09:00; Stop 09/11/17 at 10:44; Status DC Miscellaneous (Pill Splitter) 1 ea UNSCH PRN OTHER SEE LABEL COMMENTS; Start at 21:45 Heparin Sodium/ Sodium Chloride 2,000 ml @ As Directed STK-MED ONCE IV FLUSH Last administered on 09/11/17 09:51; Start 09/11/17 at 09:51; Stop 09/11/17 at 09: 52; Status DC Verapamil HCl (Isoptin Inj) 5 mg STK-MED ONCE .ROUTE ; Start 09/11/17 at 09:52; Stop 09/11/17 at 09:53; Status DC Lidocaine HCl (Xylocaine-Mpf 1% Inj) 30 ml STK-MED ONCE .ROUTE Last administered on 09/11/17at 09:52; Start 09/11/17 at 09:52; Stop 09/11/17 at 09:53; Status DC Heparin Sodium (Porcine) (Heparin Inj) 10,000 units STK-MED ONCE .ROUTE Last administered on 09/11/17 10:12; Start 09/11/17 at 09:52; Stop 09/11/17 at 09:53; Status DC Midazolam HCl (Versed Inj) 2 mg STK-MED ONCE .ROUTE Last administered on 10:11; Start 09/11/17 at 09:54; Stop 09/11/17 at 09:55; Status DC Fentanyl Citrate (fentaNYL INJ) 100 mcg STK-MED ONCE .ROUTE Last administered on 09/11/17at 10:12; Start 09/11/17 at 09:55; Stop 09/11/17 at 09:56; Status DC Heparin Sodium/ Dextrose 250 ml @ As Directed STK-MED ONCE .ROUTE Last administered on 09/11/17 10:22; Start 09/11/17 at 10:22; Stop 09/11/17 at 10:23; Status DC Nitroglycerin/ Dextrose 250 ml @ As Directed STK-MED ONCE .ROUTE ; Start at 10:22; Stop 09/11/17 at 10:23; Status DC Atorvastatin Calcium (Lipitor) 80 mg HS PO Last administered on 09/11/17at 20:11 ; Start 09/11/17 at 21:00 Nitroglycerin/ Dextrose 250 ml @ 1.5 mls/hr TITRATE PRN IV Chest pain relief Last administered on 09/12/17at 10:49; Start 09/11/17 at 12:00 Aspirin (Aspirin Chew) 81 mg DAILY CHEW Last administered on 09/12/17at 09:00; Start 09/12/17 at 09:00 Iohexol (OMNIPAQUE 350 INJ (Aircraft Lay Out Worker)) 50 ml STK-MED ONCE OTHER ; Start 09/11/17 at 12:11; Stop 09/11/17 at 12:12; Status DC Potassium Bicarb/ Potassium Chloride (K-Lyte Cl Eff) 25 meq ONCE ONCE PO Last administered on 09/11/17at 16:02; Start 09/11/17 at 14:00; Stop 09/11/17 at 14: 01; Status DC Sodium Chloride (NS Flush) 2 ml BID IV FLUSH ; Start 09/11/17 at 21:00; Status UNV Sodium Chloride (NS Flush) 2 ml UNSCH PRN IV FLUSH FLUSH AFTER USING IV ACCESS ; Start 09/11/17 at 13:45; Status UNV Papaverine HCl 60 mg/Nitroglycerin 100 mcg/Diltiazem HCl 100 mg/Sodium Chloride 100 ml @ 0 mls/hr CLINICAL EVALUATOR IRRIGATION ; Start 09/11/17 at 13:45; Stop 09/18/17 at 13:44 Cefazolin Sodium 500 mg/Sodium Chloride 505 ml @ 0 mls/hr CLINICAL EVALUATOR IRRIGATION ; Start 09/11/17 at 13:45; Stop 09/18/17 at 13:44 Cefazolin Sodium/ Dextrose 50 ml @ 100 mls/hr CLINICAL EVALUATOR IV ; Start 09/11/17 at 13 :45; Stop 09/18/17 at 13:44 Metoprolol Tartrate (Lopressor) 12.5 mg CLINICAL EVALUATOR PO ; Start 09/11/17 at 13:45; Stop 09/18/17 at 13:44 Chlorhexidine Gluconate (Hibiclens 4% Top Soln) 1 applic CLINICAL EVALUATOR TOPICAL ; Start 09/11/17 at 13:45; Stop 09/18/17 at 13:44 Insulin Human Regular 100 units/ Sodium Chloride 100 ml @ 3 mls/hr TITRATE PRN IV for blood glucose control; Start 09/11/17 at 13:45; Stop 09/18/17 at 13:44 Dextrose (D50w (Vial) Inj) 50 ml UNSCH PRN IV PUSH HYPOGLYCEMIA-SEE COMMENTS; Start 09/11/17 at 13:45 A/P Problem List: (1) Multi-vessel coronary artery stenosis ICD Code: I25.10 - Atherosclerotic heart disease of [place] coronary artery without angina pectoris (2) NSTEMI (non-ST elevated myocardial infarction) ICD Code: I21.4 - Non-ST elevation (NSTEMI) myocardial infarction (3) Carcinoid tumor ICD Code: D3A.00 - Benign carcinoid tumor of unspecified site (4) Elevated troponin ICD Code: R74.8 - Abnormal levels of other serum enzymes Status: Acute (5) Chest pain ICD Code: R07.9 - Chest pain, unspecified Status: Acute Assessment and Plan 71-year-old male admitted secondary to NSTEMI Kind for heart catheter today. Labs reviewed. Troponins are elevating. Continue to monitor labs. Labs ordered for further monitoring. Continue to monitor labs including CBC, CMP, and troponin. NSTEMI Heart catheter plan today EKG significant for sinus bradycardia without ST segment elevations or depressions Initial troponin 0.20 and trended up to 1.7 ACS evaluation is positive Heparin bolus and drip continue Cardiology following CHEST PAIN AND CAD HAD CATH NEEDS CABG ON THURSDAY CURRENTLY ON NITRO DRIP Hypertension hyperlipidemia GERD Continue statin Continue antihypertensives History of carcinoid tumor Follows in outpatient Hypokalemia Follow electrolytes Replace as needed DVT prophylaxis A she is on a heparin drip Discharge Planning Pending cardiovascular surgery and CABG Problem Qualifiers (1) Chest pain: Qualified Codes: R07.9 - Chest pain, unspecified Ravinder Gao DO Sep 12, 2017 13:26
[2017-09-12] MEDS: SODIUM CHLOR 0.9% 1000 ML INJ 1,000 ML IV SCH (15:39)
[2017-09-12] MEDS: ATORVASTATIN 80 MG TAB PO SCH (20:51)
[2017-09-12] MEDS ORDERED: TEMAZEPAM 15 MG CAP PO ONE (21:45)
[2017-09-12] MEDS ORDERED: TEMAZEPAM 7.5 MG CAP PO ONE (21:45)
[2017-09-13] VITALS (7 sets, daily range): BP systolic 91–132; BP diastolic 52–75; PULSE 62–81; RESP 12–20; TEMP 97.4–99; O2SAT 94–98
[2017-09-13] MEDS: NITROGLYCERIN-D5W 50 MG/250 ML 250 ML IV PRN ×3 (00:32→07:05)
[2017-09-13] MEDS: SODIUM CHLOR 0.9% 1000 ML INJ 1,000 ML IV SCH (01:55)
[2017-09-13] MEDS: MORPHINE SULFATE 4 MG/ML INJ IV PUSH PRN ×3 (01:55→07:10)
[2017-09-13 04:19] LABS: AUTOMATED NEUTROPHIL # 5.6 TH/MM3 (1.8-7.7); BASOPHIL # 0.1 TH/MM3 (0-0.2); BASOPHIL % 0.8 % (0.0-2.0); EOSINOPHIL # 0.1 TH/MM3 (0-0.4); EOSINOPHIL % 0.7 % (0.0-4.0); HEMATOCRIT 37.7 % (39.0-51.0); LYMPH % 14.1 % (9.0-44.0); LYMPHOCYTE # 1.1 TH/MM3 (1.0-4.8); MEAN CELL VOLUME 95.5 FL (80.0-100.0); MEAN CORPUSCULAR HGB CONC 34.6 % (32.0-36.0); MONO % 15.2 % (0.0-8.0); MONOCYTE # 1.2 TH/MM3 (0-0.9); NEUT % 69.2 % (16.0-70.0); PLATELET COUNT 222 TH/MM3 (150-450); RED BLOOD COUNT 3.95 MIL/MM3 (4.50-5.90); RED CELL DISTRIBUTION WIDTH 14.7 % (11.6-17.2); WHITE BLOOD COUNT 8.1 TH/MM3 (4.0-11.0)
[2017-09-13 04:51] LABS: AST (GOT) 37 U/L (15-37); BICARBONATE 26.3 MEQ/L (21.0-32.0); BLOOD UREA NITROGEN 9 MG/DL (7-18); CALCIUM 8.2 MG/DL (8.5-10.1); CHLORIDE 102 MEQ/L (98-107); CREATININE 0.87 MG/DL (0.60-1.30); GLOMERULAR FILTRATION RATE 87 ML/MIN (>89); GLUCOSE,RANDOM 112 MG/DL (74-106); MAGNESIUM 1.8 MG/DL (1.5-2.5); SODIUM (NA) 137 MEQ/L (136-145)
[2017-09-13 04:52] LABS: ALT (GPT) 26 U/L (12-78); PHOSPHORUS 3.4 MG/DL (2.5-4.9)
[2017-09-13 05:01] LABS: ALKALINE PHOSPHATASE 62 U/L (45-117); FREE T4 1.18 NG/DL (0.76-1.46); TOTAL BILIRUBIN ADULT 1.6 MG/DL (0.2-1.0); TOTAL PROTEIN 6.1 GM/DL (6.4-8.2)
[2017-09-13] MEDS: POTASSIUM CHLOR 20 MEQ PREMIX 100 ML IV SCH ×2 (05:40→07:03)
[2017-09-13] MEDS: HEPARIN-D5W 25,000 U/250 ML 250 ML IV PRN (05:42)
[2017-09-13] MEDS ORDERED: POVIDONE IODINE 5% (ANTISEPSIS KIT) 4 APPLICATIONS EACH NARE PRN (06:30)
[2017-09-13] MEDS ORDERED: CHLORHEXIDINE GLUCONATE 2 % 1 PACK (2 CLOTHS) TOPICAL PRN (06:30)
[2017-09-13] MEDS ORDERED: LACTATED RINGER'S 1000 ML IV PRN (06:30)
[2017-09-13] MEDS ORDERED: SODIUM CHLORID 0.9% 500 ML IV PRN (06:30)
[2017-09-13] MEDS ORDERED: HEPARIN SODIUM - SQ 10,000 UNITS/ML VIAL ONE (07:43)
[2017-09-13] MEDS ORDERED: ceFAZolin INJ 1,000 MG VIAL ONE ×2 (07:43→12:12)
[2017-09-13] MEDS ORDERED: VANCOMYCIN HCL 1000 MG VIAL ONE (07:43)
[2017-09-13] MEDS ORDERED: PAPAVERINE INJ 60 MG, NITROGLYCERIN INJ 100 MCG, VERAPAMIL INJ 100 MG in SODIUM CHLORID... IRRIGATION SCH (08:15)
[2017-09-13] MEDS: ceFAZolin 2 GM PREMIX 50 ML IV SCH ×2 (08:33→10:30)
[2017-09-13] MEDS: ASPIRIN 81 MG CHEW TAB CHEW SCH (09:00)
[2017-09-13] MEDS: SODIUM CHLORIDE 0.9% FLUSH 10 ML FLUSH IV FLUSH SCH ×2 (09:00→21:00)
[2017-09-13] MEDS: PANTOPRAZOLE SODIUM 40 MG VIAL IV PUSH SCH (09:00)
--- NOTE | 2017-09-13 11:50 | HHI.PR ---
Subjective Remarks Came to The unit to see the patient but he is in Surgery and then will be followed by Industrial Electrical Engineer. Objective Result Diagram: 09/13/17 0340 09/13/17 0340 Mateusz Staples MD Sep 13, 2017 11:49
[2017-09-13] MEDS ORDERED: hydrALAZINE HCL 20 MG/ML VIAL ONE (12:19)
[2017-09-13 12:33] LABS: HEMOGLOBIN A1C 5.7 % (4.3-6.0)
[2017-09-13] MEDS ORDERED: DOBUTamine PREMIX DRIP 250 ML IV PRN (12:35)
[2017-09-13] MEDS ORDERED: LACTATED RINGER'S 1000 ML INJ 500 ML IV PRN (12:35)
--- NOTE | 2017-09-13 12:44 | PD.OP ---
cc: Roger Real MD; Joseph Reese DO Operative Report Date of Surgery: Sep 13, 2017 Preoperative Diagnosis: Postoperative Diagnosis: Procedure: 1. Emergent Off-pump Coronary Artery Bypass Grafting x 3 with Left Internal Mammary Artery (DAWSON) to Left Anterior Descending (LAD), reverse saphenous vein graft to the Ramus Marginalis (RM), reverse saphenous vein graft to the distal Right Coronary Artery (RCA) 2. Ultrasound Guided Dissection of the LAD 3. Left Leg Endoscopic Vein Tillman 4. Intraoperative Vein Mapping. Surgeon: Roger Real Telephone Information Clerk(s): Matthew Chan Operation and Findings: PREPROCEDURE DIAGNOSES 1. Severe Multi Vessel Coronary Artery Disease. 2. Acute Myocardial Infarction (NSTEMI) 3. Ongoing Ischemia POSTPROCEDURE DIAGNOSES 1. Severe Multi Vessel Coronary Artery Disease. 2. Acute Myocardial Infarction (NSTEMI) 3. Ongoing Ischemia 4. Deeply Intramyocardial LAD SURGICAL PROCEDURE 1. Emergent Off-pump Coronary Artery Bypass Grafting x 3 with Left Internal Mammary Artery (DAWSON) to Left Anterior Descending (LAD), reverse saphenous vein graft to the Ramus Marginalis (RM), reverse saphenous vein graft to the distal Right Coronary Artery (RCA) 2. Ultrasound Guided Dissection of the LAD 3. Left Leg Endoscopic Vein Tillman 4. Intraoperative Vein Mapping. SURGEON Roger Real MD GUSSET STITCHER Olya Chan PA-C ANESTHESIA General endotracheal ATHLETIC EQUIPMENT MANAGER Eusebio Mitchell MD PREPARATION ChloraPrep. COUNTS Needle, sponge, and instrument counts were correct. DRAINS Two 32-Vietnamese mediastinal tubes. COMPLICATIONS None. INDICATIONS FOR PROCEDURE The patient is a 71-year-old presenting with chest pain and AMI. Patient was noted to have multi-vessel coronary artery disease. The patient is being brought to the operating room for emergent surgical revascularization therapy due to ongoing chest pain and ischemic changes. PROCEDURE Patient was brought to the operating room and placed supine on the OR table. Following the induction of adequate general endotracheal anesthesia and placement of appropriate monitoring devices, intraoperative vein mapping was performed which revealed suitable-caliber conduit in bilateral thighs. The patient was then prepped and draped in standard sterile fashion. Next, 2500 units of intravenous heparin was given. The left greater saphenous vein was harvested endoscopically. This appeared to be a useable-caliber conduit. Simultaneously, a median sternotomy was performed and the left internal mammary artery dissected free off the posterior sternal table. The patient was systemically heparinized and anticoagulation monitored by serial ACT measurements. The internal mammary artery had good pulsatile flow in it and was a good-caliber conduit. The pericardium was then divided in the midline, the cradle created and targets analyzed. At this point, all anastomoses were performed in a beating-heart fashion using the [employer] stabilizing system. The LAD was noted to be deeply intramyocardial. The hand-held ultrasound probe was used to identify and isolate a segment of the mid LAD for grafting. The left internal mammary artery was anastomosed to the mid LAD (1.75 mm) in an end-to- side fashion using 7-0 Prolene. Segment of saphenous vein graft was then anastomosed to the ramus (1.75 mm) in an end-to-side fashion using 7-0 Prolene. The final segment of saphenous vein graft was then anastomosed to the distal RCA (3 mm) in an end-to-side fashion using 7-0 Prolene. The proximal anastomosis was then constructed to the ascending aorta in a running manner using 6-0 Prolene. All anastomotic sites were inspected and appeared to be hemostatic and patent. Protamine solution was given. Strict hemostasis was assured. The closure was undertaken. 2 chest tubes were placed. The pericardium was reapproximated in the midline. The sternum was approximated using sternal wires. The muscular and fascial layer were then closed in 3 layers. The endoscopic vein harvest site was closed in 2 layers. The patient tolerated the procedure well and was transferred to CVICU in stable condition. Roger Real MD Sep 13, 2017 12:44
[2017-09-13] MEDS ORDERED: POTASSIUM CHLOR 20 MEQ PREMIX 100 ML IV PRN ×3 (12:45→13:30)
[2017-09-13] MEDS ORDERED: PHENYLEPHRINE INJ 40 MG in DEXTROSE 5% IN WATE 500 ML INJ 496 ML IV PRN ×2 (12:45)
[2017-09-13] MEDS ORDERED: POTASSIUM CHLORIDE 20 MEQ CONTROLLED RELEASE TAB PO PRN ×2 (12:45)
[2017-09-13] MEDS ORDERED: INSULIN REGULAR (IV INFUSION) 100 UNITS in SODIUM CHLORIDE 0.9% INJ 99 ML IV PRN (12:45)
[2017-09-13] MEDS ORDERED: MEPERIDINE HCL 25 MG/ML VIAL IV PUSH PRN (12:45)
[2017-09-13] MEDS ORDERED: DEXTROSE 50% IN WATER 50 ML VIAL(D50) IV PUSH PRN (12:45)
[2017-09-13] MEDS ORDERED: DEXMEDETOMIDINE INJ 200 MCG in SODIUM CHLORIDE 0.9% INJ 50 ML IV PRN (12:45)
[2017-09-13] MEDS ORDERED: SODIUM BICARBONATE 8.4% SOLN 50 MEQ/50 ML VIAL IV PUSH PRN ×2 (12:45)
[2017-09-13] MEDS ORDERED: ONDANSETRON HCL 4 MG/2 ML VIAL IV PUSH PRN (12:45)
[2017-09-13] MEDS ORDERED: ACETAMINOPHEN 650 MG SUPP RECTAL PRN (12:45)
[2017-09-13] MEDS ORDERED: ACETAMINOPHEN 325 MG TAB PO PRN (12:45)
[2017-09-13] MEDS ORDERED: SODIUM CHLORIDE 0.9% FLUSH 10 ML FLUSH IV FLUSH PRN (12:45)
[2017-09-13] MEDS ORDERED: NITROGLYCERIN-D5W 50 MG/250 ML 250 ML IV PRN (12:45)
[2017-09-13] MEDS ORDERED: METOPROLOL TARTRATE 5 MG/5 ML VIAL IV PUSH PRN (12:45)
[2017-09-13] MEDS ORDERED: MAGNESIUM SULFATE INJ 2 GM in SODIUM CHLORIDE 0.9% INJ 100 ML IV PRN ×4 (12:45)
[2017-09-13] MEDS ORDERED: CLEVIDIPINE INJ 50 ML IV PRN (12:45)
[2017-09-13] MEDS ORDERED: hydrALAZINE HCL 20 MG/ML VIAL IV PUSH PRN (12:45)
[2017-09-13] MEDS ORDERED: Post-op Orders (for Pharmacy) OTHER ONE (12:45)
[2017-09-13] MEDS ORDERED: CALCIUM CHLORIDE 10% 1 GRAM/10 ML VIAL IV PUSH PRN (12:45)
[2017-09-13] MEDS ORDERED: CALCIUM CHLORIDE INJ 1 GM in SODIUM CHLORIDE 0.9% INJ 100 ML IV PRN (12:45)
[2017-09-13] MEDS ORDERED: RESP: RACEPINEPHRINE 2.25% 0.5 ML NEB NEB PRN (12:45)
[2017-09-13] MEDS ORDERED: MORPHINE SULFATE 2 MG/ML SYRINGE IV PUSH PRN (12:45)
[2017-09-13] MEDS ORDERED: DOPamine 800 MG/500 ML INJ 500 ML IV PRN (12:45)
[2017-09-13] MEDS ORDERED: POTASSIUM CHLOR 20 MEQ PREMIX 100 ML IV SCH (13:00)
[2017-09-13] MEDS ORDERED: CALCIUM CHLORIDE 10% SOLN 1 GRAM/10 ML SYR IV ONE (13:28)
[2017-09-13] MEDS ORDERED: HEPARIN SODIUM - SQ 10,000 UNITS/ML VIAL SQ ONE (13:28)
[2017-09-13] MEDS ORDERED: PHENYLEPH/NS 1000 MCG/10 ML SYR IV ONE (13:28)
[2017-09-13] MEDS ORDERED: SUCCINYLCHOLINE CHLORIDE 200 MG/10 ML VIAL IV ONE (13:28)
[2017-09-13] MEDS ORDERED: VECURONIUM BROMIDE 10 MG VIAL IV ONE (13:28)
[2017-09-13] MEDS ORDERED: NITROGLYCERIN-D5W 50 MG/250 ML 250 ML IV ONE (13:28)
[2017-09-13] MEDS ORDERED: MAGNESIUM SULFATE 1 GM/2 ML VIAL IV ONE (13:28)
[2017-09-13] MEDS ORDERED: PROTAMINE SULFATE 250 MG/25 ML VIAL IV ONE (13:28)
[2017-09-13] MEDS ORDERED: DEXMEDETOMIDINE HCL 200 MCG/2 ML VIAL IV ONE (13:28)
[2017-09-13] MEDS ORDERED: AMINOCAPROIC ACID INJ 250 MG/ML 20 ML VIAL IV ONE (13:28)
[2017-09-13] MEDS ORDERED: EPINEPHrine HCL (1:1000) 1 MG/ML VIAL IV ONE (13:28)
[2017-09-13] MEDS ORDERED: fentaNYL CITRATE 250 MCG/5 ML AMP ONE ×2 (13:50→13:51)
[2017-09-13] MEDS ORDERED: MIDAZOLAM HCL 2 MG/2 ML VIAL ONE (13:50)
--- NOTE | 2017-09-13 14:06 | RADRPT ---
EXAM DATE/TIME: 09/13/2017 13:52 [facility] COMPARISON: No previous studies available for comparison. INDICATIONS : Post CABG MEDICAL HISTORY : Hypertension. Hernia, hiatal. stomach cancer SURGICAL HISTORY : Cardiac catheterization. . Gastrectomy. Right hip replacement. Hernia repair ENCOUNTER: Subsequent ACUITY: 4 - 6 days PAIN SCORE: Non-responsive. LOCATION: chest FINDINGS: A single view of the chest demonstrates endotracheal tube in good position. Left central line in supe rior vena cava. Central and left-sided chest tubes present. NG coiled in stomach. Bilateral subsegmen abdi airspace disease in the lungs. CONCLUSION: 1. Postoperative CABG. Support apparatus in good position. Scattered airspace disease in the lungs pr obably represents atelectasis. Saulo Painter MD on September 13, 2017 at 14:01 Board Certified Radiologist. This report was verified electronically.
[2017-09-13] MEDS: ALBUMIN 5% INJ 250 ML IV PRN (14:57)
[2017-09-13] MEDS: RESP: ALBUTEROL 2.5 MG/IPRATROPIUM 0.5 MG NEB (SCH) NEB ×2 (15:34→20:05)
[2017-09-13] MEDS: KETOROLAC TROMETHAMINE 30 MG/ML (IVP) VIAL IV PUSH PRN (17:06)
[2017-09-13] MEDS: ACETAMINOPHEN 1000 MG/100 ML 100 ML IV SCH ×3 (17:09→20:26)
[2017-09-13] MEDS: CEFAZOLIN INJ 2,000 MG in SODIUM CHLORIDE 0.9% INJ 100 ML IV SCH ×2 (18:08→18:28)
[2017-09-13] MEDS ORDERED: ceFAZolin 2 GM PREMIX 50 ML IV SCH (18:30)
[2017-09-13] MEDS: AMIODARONE 200 MG TAB PO SCH (21:45)
[2017-09-13] MEDS: ATORVASTATIN 80 MG TAB PO SCH (21:45)
[2017-09-14] VITALS (16 sets, daily range): BP systolic 104–119; BP diastolic 58–73; PULSE 76–96; RESP 18–20; TEMP 97.7–98.6; O2SAT 91–97
[2017-09-14] MEDS: ACETAMINOPHEN 1000 MG/100 ML 100 ML IV SCH ×2 (02:00→08:16)
[2017-09-14] MEDS: KETOROLAC TROMETHAMINE 30 MG/ML (IVP) VIAL IV PUSH PRN ×3 (02:19→18:32)
[2017-09-14] MEDS: ALBUMIN 5% INJ 250 ML IV PRN (03:11)
[2017-09-14] MEDS: RESP: ALBUTEROL 2.5 MG/IPRATROPIUM 0.5 MG NEB (SCH) NEB ×4 (03:35→19:44)
[2017-09-14 04:59] LABS: HEMATOCRIT 32.2 % (39.0-51.0); HEMOGLOBIN 11.2 GM/DL (13.0-17.0); MEAN CELL VOLUME 96.5 FL (80.0-100.0); MEAN CORPUSCULAR HEMOGLOBIN 33.4 PG (27.0-34.0); MEAN CORPUSCULAR HGB CONC 34.7 % (32.0-36.0); MEAN PLATELET VOLUME 8.2 FL (7.0-11.0); PLATELET COUNT 172 TH/MM3 (150-450); RED BLOOD COUNT 3.34 MIL/MM3 (4.50-5.90); RED CELL DISTRIBUTION WIDTH 14.5 % (11.6-17.2); WHITE BLOOD COUNT 8.9 TH/MM3 (4.0-11.0)
--- NOTE | 2017-09-14 05:14 | RADRPT ---
EXAM DATE/TIME: 09/14/2017 04:13 [facility] COMPARISON: CHEST SINGLE AP, September 13, 2017, 13:52. INDICATIONS : Shortness of breath,possible pulmonary disease. MEDICAL HISTORY : Hypertension. Hiatal hernia. Carcinoma, gastric. SURGICAL HISTORY : CABG. Hernia repair Hip arthroplasty ENCOUNTER: Subsequent ACUITY: 1 week PAIN SCORE: Non-responsive. LOCATION: Bilateral chest FINDINGS: A single view of the chest demonstrates recent CABG. Mediastinal and left-sided chest tubes without p neumothorax. Bibasilar densities in left upper lobe density. Cardiomegaly. Left subclavian central li ne in stable position.. Osseous structures are intact. CONCLUSION: Stable chest with scattered parenchymal densities. Ramirez Lares MD on September 14, 2017 at 5:11 Board Certified Radiologist. This report was verified electronically.
[2017-09-14 05:15] LABS: CALCIUM 8.1 MG/DL (8.5-10.1); CREATININE 0.7 MG/DL (0.60-1.30); MAGNESIUM 2.1 MG/DL (1.5-2.5)
[2017-09-14] MEDS: ACETAMINOPHEN/HYDROcodone 325 MG/5 MG TAB PO PRN ×4 (05:56→21:57)
[2017-09-14] MEDS: PANTOPRAZOLE SOD 40 MG DELAYED RELEASE TAB PO SCH (06:00)
[2017-09-14] MEDS: AMIODARONE 200 MG TAB PO SCH ×2 (08:16→21:34)
[2017-09-14] MEDS: CLOPIDOGREL 75 MG TAB PO SCH (08:17)
[2017-09-14] MEDS: SODIUM CHLORIDE 0.9% FLUSH 10 ML FLUSH IV FLUSH SCH ×2 (08:17→21:33)
[2017-09-14] MEDS: ASPIRIN 81 MG CHEW TAB PO SCH (08:17)
--- NOTE | 2017-09-14 08:52 | PD.CARD.PN ---
Subjective Subjective Remarks Late entry note from 09/13 Post-CABG, no vasopressors, hemodynamically stable Objective Medications Current Medications Medications (Trade) Dose Ordered Sig/Thang Route Start Time Stop Time Status Last Admin (Narcan Inj) 0.4 mg UNSCH PRN IV PUSH 09/10/17 16:45 (Nitrostat Sl) 0.4 mg Q5M PRN SL 09/10/17 17:00 Heparin Sodium/ Dextrose 250 ml @ 10 mls/hr TITRATE PRN IV 09/10/17 17:00 09/13/17 05:42 (Pill Splitter) 1 ea UNSCH PRN OTHER 09/10/17 21:45 (Lipitor) 80 mg HS PO 09/11/17 21:00 09/13/17 21:45 (Betadine 5% Antisepsis Kit) 1 applic MENTAL HEALTH PRACTITIONER PRN EACH NARE 09/13/17 06:30 09/16/17 06:29 (NS Flush) 2 ml BID IV FLUSH 09/13/17 21:00 09/14/17 08:17 (NS Flush) 2 ml UNSCH PRN IV FLUSH 09/13/17 12:45 Dexmedetomidine HCl 200 mcg/ Sodium Chloride 52 ml @ 4.18 mls/hr TITRATE PRN IV 09/13/17 12:45 09/13/17 13:35 Nitroglycerin/ Dextrose 250 ml @ 1.5 mls/hr TITRATE PRN IV 09/13/17 12:45 09/13/17 13:35 Dobutamine HCl/ Dextrose 250 ml @ 12.06 mls/ hr [id number] PRN IV 09/13/17 12:35 Dopamine HCl/ Dextrose 500 ml @ 9.045 mls/ hr TITRATE PRN IV 09/13/17 12:45 Phenylephrine HCl 40 mg/Dextrose 500 ml @ 30 mls/hr TITRATE PRN IV 09/13/17 12:45 Clevidipine 50 ml @ 2 mls/hr TITRATE PRN IV 09/13/17 12:45 Albumin Human 250 ml @ 250 mls/hr UNSCH PRN IV 09/13/17 12:45 09/14/17 03:11 Lactated Ringer's 500 ml @ 500 mls/hr Q1H PRN IV 09/13/17 12:35 (Aspirin Chew) 81 mg DAILY PO 09/14/17 09:00 4/9/18 08:17 (Plavix) 75 mg DAILY PO 09/14/17 09:00 09/14/17 08:17 (Protonix) 40 mg DAILY@06 PO 09/14/17 06:00 09/14/17 06:00 (Cordarone) 200 mg Q12HR PO 09/13/17 21:00 09/14/17 08:16 (Tylenol) 650 mg Q4H PRN PO 09/13/17 12:45 (Tylenol Supp) 650 mg Q4H PRN RECTAL 09/13/17 12:45 (Morphine Inj) 1 mg Q10M PRN IV PUSH 09/13/17 12:45 (Demerol Inj) 12.5 mg Q4H PRN IV PUSH 09/13/17 12:45 ([place] 5-325 Mg) 1 tab Q3H PRN PO 09/13/17 12:45 09/14/17 05:56 (Toradol Inj) 15 mg Q6H PRN IV PUSH 09/13/17 12:45 09/15/17 12:44 09/14/17 02:19 (fentaNYL INJ) 25 mcg Q1H PRN IV PUSH 09/13/17 12:45 09/14/17 08:45 (Zofran Inj) 4 mg Q6H PRN IV PUSH 09/13/17 12:45 (Apresoline Inj) 10 mg Q4H PRN IV PUSH 09/13/17 12:45 (Lopressor Inj) 2.5 mg Q1H PRN IV PUSH 09/13/17 12:45 Potassium Chloride 100 ml @ 50 mls/hr UNSCH PRN IV 09/13/17 12:45 09/13/17 18:23 (KCl) 20 meq UNSCH PRN PO 09/13/17 12:45 (KCl) 40 meq UNSCH PRN PO 09/13/17 12:45 Magnesium Sulfate 2 gm/Sodium Chloride 104 ml @ 100 mls/hr UNSCH PRN IV 09/13/17 12:45 Magnesium Sulfate 2 gm/Sodium Chloride 104 ml @ 50 mls/hr UNSCH PRN IV 09/13/17 12:45 Calcium Chloride 1 gm/Sodium Chloride 110 ml @ 100 mls/hr UNSCH PRN IV 09/13/17 12:45 09/13/17 18:22 (Calcium Chloride Inj) 0.5 gm UNSCH PRN IV PUSH 09/13/17 12:45 Insulin Human Regular 100 units/ Sodium Chloride 100 ml @ 3 mls/hr TITRATE PRN IV 09/13/17 12:45 (D50w (Vial) Inj) 50 ml UNSCH PRN IV PUSH 09/13/17 12:45 (Sodium Bicarbonate 8.4% Inj) 50 meq UNSCH PRN IV PUSH 09/13/17 12:45 (Sodium Bicarbonate 8.4% Inj) 100 meq UNSCH PRN IV PUSH 09/13/17 12:45 (Duoneb Neb) 1 ampule Q6HR NEB NEB 09/13/17 16:00 09/14/17 03:35 (Duoneb Neb) 1 ampule Q2HR NEB PRN NEB 09/13/17 12:45 (Racepinephrine 2.25% Neb) 0.5 ml UNSCH X1 PRN NEB 09/13/17 12:45 09/14/17 12:44 Potassium Chloride 100 ml @ 50 mls/hr UNSCH PRN IV 09/13/17 13:30 Cefazolin Sodium 2000 mg/Sodium Chloride 120 ml @ 240 mls/hr Q8H IV 09/13/17 18:30 09/15/17 02:59 09/13/17 18:28 Vital Signs / I&O Vital Signs Date Time Temp Pulse Resp B/P (MAP) Pulse Ox O2 Delivery O2 Flow Rate FiO2 09/14/17 07:00 98.2 82 18 113/66 (82) 97 113/58 (76) 09/14/17 07:00 97 Nasal Cannula 3.00 09/14/17 07:00 81 09/14/17 06:56 20 09/14/17 06:40 20 09/14/17 04:41 98.6 09/14/17 03:19 20 09/14/17 03:00 98.6 78 20 104/60 (75) 96 115/60 (78) 09/14/17 03:00 96 Nasal Cannula 3.00 09/14/17 03:00 78 09/14/17 02:30 18 09/13/17 23:00 81 09/13/17 23:00 98.7 81 20 111/62 (78) 97 109/53 (71) 09/13/17 23:00 97 Nasal Cannula 4.00 09/13/17 22:45 98.6 09/13/17 20:08 97 Nasal Cannula 3.00 09/13/17 19:00 97.4 73 20 104/63 (77) 98 132/63 (86) 09/13/17 19:00 73 09/13/17 19:00 98 Nasal Cannula 4.00 09/13/17 15:40 40 09/13/17 15:40 Nasal Cannula 5 98 09/13/17 15:40 96 Nasal Cannula 5.00 09/13/17 15:00 62 09/13/17 15:00 98.5 62 13 97/58 (71) 97 91/52 (65) 09/13/17 13:35 98.1 73 12 116/65 (82) 98 121/60 (80) 09/13/17 13:35 95 50 09/13/17 13:35 50 09/13/17 13:35 73 121/60 09/13/17 13:35 73 121/60 09/13/17 13:35 73 I/O 09/13/17 09/13/17 09/13/17 09/14/17 09/14/17 09/14/17 07:00 15:00 23:00 07:00 15:00 23:00 Intake Total 1735 ml 2750 ml 3134 ml 1840 ml 100 ml Output Total 965 ml 375 ml 520 ml 620 ml Balance 770 ml 2375 ml 2614 ml 1220 ml 100 ml Intake Oral 240 ml 240 ml IV Total 1495 ml 1134 ml 1350 ml 100 ml Autotransfusion 250 ml Albumin 250 ml Other 2500 ml 2000 ml Output Urine Total 965 ml 250 ml 370 ml 415 ml Chest Tube Drainage Total 150 ml 205 ml Estimated Blood Loss 125 ml # Bowel Movements 0 Physical Exam GENERAL: Intubated and sedated SKIN: Warm and dry. HEAD: Atraumatic. Normocephalic. EYES: Pupils equal and round. No scleral icterus. No injection or drainage. ENT: No nasal bleeding or discharge. Mucous membranes pink and moist. NECK: Trachea midline. No JVD. CARDIOVASCULAR: Regular rate and rhythm. RESPIRATORY: No accessory muscle use. Clear to auscultation. Breath sounds equal bilaterally. GASTROINTESTINAL: Abdomen soft, non-tender, nondistended. Hepatic and splenic margins not palpable. MUSCULOSKELETAL: Extremities without clubbing, cyanosis, or edema. No obvious deformities. NEUROLOGICAL: Sedated Laboratory Laboratory Tests Test 09/14/17 04:30 White Blood Count 8.9 TH/MM3 Red Blood Count 3.34 MIL/MM3 Hemoglobin 11.2 GM/DL Hematocrit 32.2 % Mean Corpuscular Volume 96.5 FL Mean Corpuscular Hemoglobin 33.4 PG Mean Corpuscular Hemoglobin Concent 34.7 % Red Cell Distribution Width 14.5 % Platelet Count 172 TH/MM3 Mean Platelet Volume 8.2 FL Blood Urea Nitrogen 10 MG/DL Creatinine 0.70 MG/DL Random Glucose 115 MG/DL Calcium Level 8.1 MG/DL Magnesium Level 2.1 MG/DL Sodium Level 137 MEQ/L Potassium Level 4.0 MEQ/L Chloride Level 105 MEQ/L Carbon Dioxide Level 21.0 MEQ/L Anion Gap 11 MEQ/L Estimat Glomerular Filtration Rate 111 ML/MIN Imaging Last 24 hours Impressions Chest X-Ray 09/14/17 0500 Signed Impressions: Service Date/Time: Thursday, September 14, 2017 04:13 - CONCLUSION: Stable chest with scattered parenchymal densities. Ramirez Lares MD Assessment and Plan Problem List: (1) NSTEMI (non-ST elevated myocardial infarction) ICD Codes: I21.4 - Non-ST elevation (NSTEMI) myocardial infarction (2) Multi-vessel coronary artery stenosis ICD Codes: I25.10 - Atherosclerotic heart disease of [place] coronary artery without angina pectoris (3) Chest pain ICD Codes: R07.9 - Chest pain, unspecified Status: Acute (4) Carcinoid tumor ICD Codes: D3A.00 - Benign carcinoid tumor of unspecified site Assessment and Plan 1) NSTEMI/MVCAD s/p CABGx3 2) Extubate per protocol 3) ASA/Plavix/Amio Problem Qualifiers (1) Chest pain: Qualified Codes: R07.9 - Chest pain, unspecified Joseph Reese DO Sep 14, 2017 08:52
[2017-09-14] MEDS ORDERED: DEXTROSE 50% IN WATER 50 ML VIAL(D50) IV PUSH PRN (09:15)
[2017-09-14] MEDS ORDERED: SOD PHOSPHATE/SOD BIPHOSPHATE (ADULT) ENEMA 133ML RECTAL PRN (09:15)
[2017-09-14] MEDS ORDERED: BISACODYL 10 MG SUPP RECTAL PRN (09:15)
[2017-09-14] MEDS ORDERED: GLUCAGON 1 MG/ML VIAL OTHER PRN (09:15)
[2017-09-14] MEDS: DOCUSATE SODIUM 100 MG CAP PO SCH ×2 (09:15→21:33)
[2017-09-14] MEDS: INSULIN ASPART SUPPLEMENTAL SCALE SQ SCH ×4 (09:32→22:00)
[2017-09-14] MEDS: CEFAZOLIN INJ 2,000 MG in SODIUM CHLORIDE 0.9% INJ 100 ML IV SCH ×2 (10:30→18:32)
--- NOTE | 2017-09-14 10:42 | PD.CAR.PN ---
CVT Progress Note Subjective/Hospital Course: 1-year-old male visiting from the [place] area, on vacation with his family. He presented to the emergency room with substernal chest pain, 10/10, associated with diaphoresis, positive for troponin, ruled in for a non-STEMI. Had been at [facility] the day before, thought it was indigestion, had that on Thursday night and on the EMS was called. He underwent cardiac catheterization today by Dr. Reese showing proximal LAD 70%, mid-distal LAD 90%, diagonal 10%, the circ was 60%, the RCA 95% and the ramus 99%. We were consulted to evaluate for coronary artery bypass grafting. Echocardiogram is pending for ejection fraction. 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 surgery:. 09/13 Emergent Off-pump Coronary Artery Bypass Grafting x 3 with Left Internal Mammary Artery (DAWSON) to Left Anterior Descending (LAD), reverse saphenous vein graft to the Ramus Marginalis (RM), reverse saphenous vein graft to the distal Right Coronary Artery (RCA), Ultrasound Guided Dissection of the LAD, Left Leg Endoscopic Vein [place] extubated after surgery crystalloid 2500cc, cell saver 250cc 09/14 on nasal cannula chest tube drained 205cc/ 12 hrs start BB this pm if BP allows await 2edcho for EF / ok to transfer to stepdown Objective: GENERAL: A&O x 3 SKIN: Warm and dry. prevena dressing to chest , yonas wrap left leg HEAD: Normocephalic. EYES: No scleral icterus. No injection or drainage. NECK: Supple, trachea midline. No JVD or lymphadenopathy. CARDIOVASCULAR: Regular rate and rhythm without murmurs, gallops, or rubs. RESPIRATORY: Breath sounds equal bilaterally. No accessory muscle use. chest tube to wall suction, no air leak GASTROINTESTINAL: Abdomen soft, non-tender, nondistended. MUSCULOSKELETAL: No cyanosis, or edema. BACK: Nontender without obvious deformity. No CVA tenderness. Vital Signs Date Time Temp Pulse Resp B/P (MAP) Pulse Ox O2 Delivery O2 Flow Rate FiO2 09/14/17 09:04 95 Nasal Cannula 2.00 09/14/17 07:00 98.2 82 18 113/66 (82) 97 113/58 (76) 09/14/17 07:00 97 Nasal Cannula 3.00 09/14/17 07:00 81 09/14/17 06:56 20 09/14/17 06:40 20 09/14/17 04:41 98.6 09/14/17 03:19 20 09/14/17 03:00 98.6 78 20 104/60 (75) 96 115/60 (78) 09/14/17 03:00 96 Nasal Cannula 3.00 09/14/17 03:00 78 09/14/17 02:30 18 09/13/17 23:00 81 09/13/17 23:00 98.7 81 20 111/62 (78) 97 109/53 (71) 09/13/17 23:00 97 Nasal Cannula 4.00 09/13/17 22:45 98.6 09/13/17 20:08 97 Nasal Cannula 3.00 09/13/17 19:00 97.4 73 20 104/63 (77) 98 132/63 (86) 09/13/17 19:00 73 09/13/17 19:00 98 Nasal Cannula 4.00 09/13/17 15:40 40 09/13/17 15:40 Nasal Cannula 5 98 09/13/17 15:40 96 Nasal Cannula 5.00 09/13/17 15:00 62 09/13/17 15:00 98.5 62 13 97/58 (71) 97 91/52 (65) 09/13/17 13:35 98.1 73 12 116/65 (82) 98 121/60 (80) 09/13/17 13:35 95 50 09/13/17 13:35 50 09/13/17 13:35 73 121/60 09/13/17 13:35 73 121/60 09/13/17 13:35 73 Labs: Laboratory Tests Test 09/14/17 04:30 White Blood Count 8.9 TH/MM3 (4.0-11.0) Red Blood Count 3.34 MIL/MM3 (4.50-5.90) Hemoglobin 11.2 GM/DL (13.0-17.0) Hematocrit 32.2 % (39.0-51.0) Mean Corpuscular Volume 96.5 FL (80.0-100.0) Mean Corpuscular Hemoglobin 33.4 PG (27.0-34.0) Mean Corpuscular Hemoglobin Concent 34.7 % (32.0-36.0) Red Cell Distribution Width 14.5 % (11.6-17.2) Platelet Count 172 TH/MM3 (150-450) Mean Platelet Volume 8.2 FL (7.0-11.0) Blood Urea Nitrogen 10 MG/DL (7-18) Creatinine 0.70 MG/DL (0.60-1.30) Random Glucose 115 MG/DL (74-106) Calcium Level 8.1 MG/DL (8.5-10.1) Magnesium Level 2.1 MG/DL (1.5-2.5) Sodium Level 137 MEQ/L (136-145) Potassium Level 4.0 MEQ/L (3.5-5.1) Chloride Level 105 MEQ/L (98-107) Carbon Dioxide Level 21.0 MEQ/L (21.0-32.0) Anion Gap 11 MEQ/L (5-15) Estimat Glomerular Filtration Rate 111 ML/MIN (>89) Result Diagram: 09/14/1742909/14/17429 Telemetry: NSR (1) NSTEMI (non-ST elevated myocardial infarction) (2) Multi-vessel coronary artery stenosis (3) Chest pain (4) Carcinoid tumor (5) S/P CABG x 3 Plan: on ASA, statin , BB , plavix OOB, ambulate pulm toileting pain control CM to eval for HHC at discharge Problem Qualifiers (1) Chest pain: Qualified Codes: R07.9 - Chest pain, unspecified Consuelo Staley Sep 14, 2017 10:42
--- NOTE | 2017-09-14 10:47 | HHI.FF ---
Face to Face Verification Diagnosis: (1) Carcinoid tumor (2) Elevated troponin (3) Chest pain (4) NSTEMI (non-ST elevated myocardial infarction) (5) S/P CABG x 3 Home Health Nursing Order: Signs/symptoms of disease process Medication education-adverse effect Wound care and dressing changes Nursing assessment with vital signs Instructions: Heart and Vascular Surgery patients *Special attention to sternal dressing Mandatory frequency Assess and evaluation, 4 days in a row The next week 3X week 2 times a week for 4 weeks 1 time a week for 5 weeks Schedule Heart and Vascular patients for full 60 day certification period Initial visit Review Open Heart Surgery Discharge Instructions (Sternal precautions, Activity, Elastic hose, Incision care, Driving, Incentive spirometry, Smoking, [place], Work and other) Need Betadine to paint incision Medication reconciliation Importance of follow up care/ check on appointments Make calendar record temperature daily When to call [facility] at Home nurse, review instructions, phone list Incentive Spirometry, demonstration Visit 1- Begin discharge instruction for patient family and/ or caregiver using teach back method- Signs and symptoms of infection Disease characteristics Medicines and side effects Foods and nutrition/ appetite Infection control/ hand washing/ hygiene Visit 2- Continue teaching Discharge instructions- include additional information on smoking cessation , sternal dressing (sternal vac) Visit 3- Continue teaching- Cough and deep breathing, incision monitoring. Choose my plate Visit 4- Continue teaching- Discuss limitations Discuss how they are feeling Discuss progress toward goals Remaining visits- continue teaching and monitoring For any questions please call : Thursday 8am-5pm Heart & Vascular Surgery Office ( Dr. Real & Dr. Nunez), After Hours / Nights (5pm -8am) Weekends and Holidays Please call [facility] Cardiac Intermediate Care Unit (CIC) Charge Nurse PREVENA Single Use Negative Wound Therapy System Caregiver Instruction Sheet 1. A Prevena dressing system was applied to the chest incision during surgery , to promote wound healing. It works via a suction device (negative pressure wound therapy) to remove low to moderate levels of exudate (drainage) and infectious materials. We recommend that the device stay in place for up to seven days, from day of surgery. 2. Day of Surgery____/01/23 Day of Removal ____/15/18 3. The dressing should only be removed by a health direct care counselor. Please arrange removal of device to coincide with Home Health visit and or with Nursing staff at Rehab 4. If skin reddening or irritation of skin occurs, or excessive drainage, please notify the Cardiovascular Surgeons office at [phone]. 5. Light showering is permissible; however the pump should be disconnected and placed in safe location, where it will not get wet. The dressing should not be exposed to direct spray or submerged in water. No bath tub / shower only. Ensure the end of the tubing attached to the dressing is facing down so that water does not enter the top of the tube. 6. To remove Prevena dressing: press purple button to turn off device / remove the suction. Then disconnect the tubing from the pump. The fixation strips should be stretched away from the skin and the dressing lifted at one corner and peeled back until it has been fully removed. 7. After removal, it is ok to shower daily using liquid dial soap and clean wash cloth, rinse and pat dry, and leave incision open to air dry. For any concerns regarding Prevena dressing, and or wounds, please contact Roselyn Del Rio, patient navigator at [phone] or notify the Cardiovascular Surgeons office at [phone]. Incentive spirometry Q1 hr x 10, while awake, also use acapella device hourly whole awake Sternal Breast Bone Precautions: NO pushing or pulling, ( pt must use sternal pillow to support chest with all activities and with coughing ( takes up to 3 months breast bone to heal ) All females to wear sternal bra , launder as needed Daily incision care: ok to shower daily, no tub bath. Wash all incisions with liquid dial soap, clean wash cloth to each site, rinse and pat dry. Observe for any signs of infection, such as drainage which is dark yellow, ann, green or foul smelling. Immediately report to the surgeon any drainage from the chest incision, or legs, and for any abnormal drainage from the chest tube sites. Notify surgeon if any temp >101.5 degrees F. When specialty dressing removed/ or if you do not have one, continue to shower daily as above, then rinse and pat incision dry and paint with betadine daily x 5 days. Allow steri strips to fall off if you have any. Avoid lotions, creams, salves, oils, etc. for the first month Please see attached forms for additional instructions regarding post Open Heart specialty wound vacuum dressings. JEWELL or Prevena , Dressing to be removed by Nursing staff on __09/20/17 F/U appointment: as per DC instructions: PCP in 2 weeks, CV surgeon 2 weeks, Renewable [employer] Consultant 3-4 weeks For any questions regarding incisions/ dressing / meds / post op care or above Symptoms, Thursday 8am-5pm Heart & Vascular Surgery Office ( Dr. Real & Dr. Nunez), After Hours / Nights (5pm -8am) Weekends and Holidays Please call [facility] Cardiac Intermediate Care Unit (CIC) Charge Nurse I have seen patient Pavel Whitman on 09/14/17. My clinical findings support the need for the requested home health care services because: Deconditioned w/ increased weakness I certify that my clinical findings support that this patient is homebound because: Post-op weakness Consuelo Staley Sep 14, 2017 10:47
--- NOTE | 2017-09-14 11:12 | HHI.PR ---
Subjective Remarks in no acute distress. pain is controlled. no sob. afebrile. Objective Vitals Vital Signs Date Time Temp Pulse Resp B/P (MAP) Pulse Ox O2 Delivery O2 Flow Rate FiO2 09/14/17 09:04 95 Nasal Cannula 2.00 09/14/17 07:00 98.2 82 18 113/66 (82) 97 113/58 (76) 09/14/17 07:00 97 Nasal Cannula 3.00 09/14/17 07:00 81 09/14/17 06:56 20 09/14/17 06:40 20 09/14/17 04:41 98.6 09/14/17 03:19 20 09/14/17 03:00 98.6 78 20 104/60 (75) 96 115/60 (78) 09/14/17 03:00 96 Nasal Cannula 3.00 09/14/17 03:00 78 09/14/17 02:30 18 09/13/17 23:00 81 09/13/17 23:00 98.7 81 20 111/62 (78) 97 109/53 (71) 09/13/17 23:00 97 Nasal Cannula 4.00 09/13/17 22:45 98.6 09/13/17 20:08 97 Nasal Cannula 3.00 09/13/17 19:00 97.4 73 20 104/63 (77) 98 132/63 (86) 09/13/17 19:00 73 09/13/17 19:00 98 Nasal Cannula 4.00 09/13/17 15:40 40 09/13/17 15:40 Nasal Cannula 5 98 09/13/17 15:40 96 Nasal Cannula 5.00 09/13/17 15:00 62 09/13/17 15:00 98.5 62 13 97/58 (71) 97 91/52 (65) 09/13/17 13:35 98.1 73 12 116/65 (82) 98 121/60 (80) 09/13/17 13:35 95 50 09/13/17 13:35 50 09/13/17 13:35 73 121/60 09/13/17 13:35 73 121/60 09/13/17 13:35 73 I/O 09/13/17 09/13/17 09/13/17 09/14/17 09/14/17 09/14/17 07:00 15:00 23:00 07:00 15:00 23:00 Intake Total 1735 ml 2750 ml 3134 ml 1840 ml 100 ml Output Total 965 ml 375 ml 520 ml 620 ml Balance 770 ml 2375 ml 2614 ml 1220 ml 100 ml Intake Oral 240 ml 240 ml IV Total 1495 ml 1134 ml 1350 ml 100 ml Autotransfusion 250 ml Albumin 250 ml Other 2500 ml 2000 ml Output Urine Total 965 ml 250 ml 370 ml 415 ml Chest Tube Drainage Total 150 ml 205 ml Estimated Blood Loss 125 ml # Bowel Movements 0 Result Diagram: 09/14/17 0430 09/14/17 0430 Imaging Last Impressions Chest X-Ray 09/14/17 0500 Signed Impressions: Service Date/Time: Thursday, September 14, 2017 04:13 - CONCLUSION: Stable chest with scattered parenchymal densities. Ramirez Lares MD Lower Extremity Ultrasound 09/11/17 0000 Signed Impressions: Service Date/Time: Monday, September 11, 2017 18:51 - CONCLUSION: Venous mapping as above. Ravinder Breaux MD FACR Carotid Artery Ultrasound 09/11/17 0000 Signed Impressions: Service Date/Time: Monday, September 11, 2017 19:19 - CONCLUSION: Negative for hemodynamically significant stenosis. Ravinder Breaux MD FACR CT Angiography 09/10/17 0000 Signed Impressions: Service Date/Time: September 16:08 - CONCLUSION: The study is negative for pulmonary embolism. Arie Gordillo MD Objective Remarks GENERAL: This is a well-nourished, well-developed patient, in no apparent distress. CARDIOVASCULAR: Regular rate and regular rhythm without murmurs, gallops, or rubs. RESPIRATORY: Clear to auscultation. Breath sounds equal bilaterally. No wheezes , rales, or rhonchi. chest tube in place. GASTROINTESTINAL: Abdomen soft, non-tender, nondistended. Normal, active bowel sounds MUSCULOSKELETAL: Extremities without clubbing, cyanosis, or edema. NEURO: Alert & Oriented x4 to person, place, time, situation. Moves all ext x4 Procedures 09/11/2017 PROCEDURE: Left heart catheterization, coronary angiogram, moderate sedation 15 minutes. PREPROCEDURE DIAGNOSES: Non-ST elevation myocardial infarction, coronary insufficiency. POSTPROCEDURE DIAGNOSES: Multivessel coronary artery disease, non-ST elevation myocardial infarction. MEDICATIONS: Versed 0.5 mg, fentanyl 25 mcg, heparin 3300 units., nitroglycerin 200 mcg, restarted heparin drip, started nitroglycerin drip at 5 mcg per minute. CONTRAST USED: 40 mL FLUOROSCOPY: 2.9 minutes. MODERATE SEDATION: 15 minutes. ESTIMATED BLOOD LOSS: 10 mL PROCEDURAL SUMMARY: Pavel Whitman is a pleasant 71-year-old male who presented to [facility] due to chest pain. He was found to have an elevated troponin and because of this, he was recommended cardiac catheterization. Risks, benefits and alternatives were explained to him and he consented as such. He was brought to the lab and prepped in the usual sterile fashion. The right radial artery was accessed using a modified Seldinger technique and placement of a 5/6 Georg[place] Slender sheath. This was easily aspirated and flushed. A JR4 was advanced over a J-wire to the ascending aorta and across the aortic valve for measurement of left ventricular pressure. This was pulled back across the aortic valve showing no significant gradient of aortic stenosis. JR4 was used for selective angiography of the right coronary artery system. This is exchanged out for a JL3.5, which was used for selective angiography of the left coronary artery system. JL3.5 was removed over a J wire. A radial band was placed over the arteriotomy site for hemostasis. The patient was started on a heparin and nitroglycerin drip. 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 FINDINGS: LEFT MAIN: Normal size vessel with adequate reflux and no significant disease. It trifurcates into an LAD, circumflex, and ramus. LEFT ANTERIOR DESCENDING: A small to moderate sized vessel with diffuse 70% disease throughout the proximal portion and a 90% stenosis in the mid portion. Distally, the vessel has no significant disease. It gives off 2 small diagonals. RAMUS: Overall small vessel with a 99% stenosis in the mid portion. After this, it bifurcates into an upper and lower branch with [place] 1 flow noted. LEFT CIRCUMFLEX: Small to moderate sized vessel with diffuse 50% disease throughout the mid portion. It gives off 1 obtuse marginal, which is overall small and tortuous. It appears that the second obtuse marginal is 100% occluded, but overall around 1 mm in size. RIGHT CORONARY ARTERY: Moderate to large size vessel with a 90% stenosis in the proximal to mid portion. Distally it gives off a PDA with a small PLB. LEFT VENTRICULAR END DIASTOLIC PRESSURE: 12. IMPRESSIONS: 1. Multivessel coronary artery disease. 2. Coronary insufficiency. 3. Non-ST elevation myocardial infarction. RECOMMENDATIONS: 1. Mr. Whitman presented with chest pain concerning for coronary insufficiency and was found to have multivessel disease and because of this he will be recommended coronary artery bypass grafting. 2. I discussed the case with Dr. Real who will see the patient in consultation. 3. We will check a 2-D echo to look at his overall left ventricular function, cardiac structure and possible valvulopathies. 4. He has since been started on a heparin drip and nitroglycerin drip. If at anytime he has chest pain unrelieved by medication, hemodynamically or electrically unstable, then consideration will be made for further support, along with earlier consideration of coronary artery bypass grafting. Thank you for allowing me to see Pavel Whitman. If there any questions, please do not hesitate to call. Medications and IVs Inpatient Medications Acetaminophen 100 ml @ 400 mls/hr Q6H IV Last administered on 09/14/17at 08:16; Start 09/13/17 at 14:00; Stop 09/14/17 at 08:14; Status DC Acetaminophen (Tylenol Supp) 650 mg Q4H PRN RECTAL TEMPERATURE > 101 F; Start 09/13/17 at 12:45; Stop 09/14/17 at 09:03; Status DC Acetaminophen (Tylenol) 650 mg Q4H PRN PO TEMPERATURE > 101 F; Start 09/13/17 at 12:45 Acetaminophen/ Hydrocodone Bitart ([place] 5-325 Mg) 2 tab Q4H PRN PO PAIN SCALE 6 TO 10; Start 09/14/17 at 09:15 Albumin Human 250 ml @ 250 mls/hr UNSCH PRN IV SEE LABEL COMMENTS Last administered on 09/14/17at 03:11; Start 09/13/17 at 12:45; Stop 09/14/17 at 09:03; Status DC Albuterol/ Ipratropium (Duoneb Neb) 1 ampule Q6HR WHILE AWAKE NEB NEB ; Start 09/14/17 at 14:00; Stop 09/16/17 at 13:59 Amiodarone HCl (Cordarone) 200 mg Q12HR PO Last administered on 09/14/17 08:16 ; Start 09/13/17 at 21:00 Aspirin (Aspirin Chew) 81 mg DAILY PO Last administered on 09/14/17at 08:17; Start 09/14/17 at 09:00 Aspirin (Aspirin) 325 mg ONCE ONCE PO Last administered on 09/10/17at 15:28; Start 09/10/17 at 15:30; Stop 09/10/17 at 15:31; Status DC Aspirin (Ecotrin Ec) 325 mg DAILY PO Last administered on 09/11/17at 09:00; Start 09/11/17 at 09:00; Stop 09/11/17 at 10:44; Status DC Atorvastatin Calcium (Lipitor) 80 mg HS PO Last administered on 09/13/17at 21:45 ; Start 09/11/17 at 21:00 Bisacodyl (Dulcolax Supp) 10 mg UNSCH PRN RECTAL SEE LABEL COMMENTS; Start 09/14 at 09:15 Bisoprolol Fumarate (Zebeta) 10 mg DAILY PO Last administered on 09/11/17at 09:00 ; Start 09/11/17 at 09:00; Stop 09/11/17 at 10:44; Status DC Calcium Chloride (Calcium Chloride Inj) 0.5 gm UNSCH PRN IV PUSH SEE LABEL COMMENTS; Start 09/13/17 at 12:45; Stop 09/14/17 at 09:03; Status DC Calcium Chloride 1 gm/Sodium Chloride 110 ml @ 100 mls/hr UNSCH PRN IV SEE LABEL COMMENTS Last administered on 09/13/17at 18:22; Start 09/13/17 at 12:45; Stop 09/14/17 at 09:03; Status DC Cefazolin Sodium 500 mg/Sodium Chloride 505 ml @ 0 mls/hr OIL PIT ATTENDANT IRRIGATION Last administered on 09/13/17at 10:31; Start 09/11/17 at 13:45; Stop 09/13/17 at 17: 09; Status DC Cefazolin Sodium 2000 mg/Sodium Chloride 120 ml @ 240 mls/hr Q8H IV Last administered on 09/14/17at 10:30; Start 09/13/17 at 18:30; Stop 09/15/17 at 02:59 Cefazolin Sodium/ Dextrose 50 ml @ 100 mls/hr OIL PIT ATTENDANT IV Last administered on 09/13/17at 10:30; Start 09/11/17 at 13:45; Stop 09/13/17 at 17:09; Status DC Chlorhexidine Gluconate (Chlorhexidine 2% Cloth) 3 pack OIL PIT ATTENDANT PRN TOPICAL SEE LABEL COMMENTS; Start 09/13/17 at 06:30; Stop 09/13/17 at 17:09; Status DC Chlorhexidine Gluconate (Hibiclens 4% Top Soln) 1 applic OIL PIT ATTENDANT TOPICAL ; Start 09/11/17 at 13:45; Stop 09/13/17 at 17:09; Status DC Clevidipine 50 ml @ 2 mls/hr TITRATE PRN IV Maintain BP < 140/90 mmHg; Start at 12:45; Stop 09/14/17 at 09:03; Status DC Clopidogrel Bisulfate (Plavix) 75 mg DAILY PO Last administered on 09/14/17at 08: 17; Start 09/14/17 at 09:00 Dexmedetomidine HCl 200 mcg/ Sodium Chloride 52 ml @ 4.18 mls/hr TITRATE PRN IV SEDATION Last administered on 09/13/17at 13:35; Start 09/13/17 at 12:45; Stop at 09:03; Status DC Dextrose (D50w (Vial) Inj) 50 ml UNSCH PRN IV PUSH HYPOGLYCEMIA-SEE COMMENTS; Start 09/14/17 at 09:15 Dobutamine HCl/ Dextrose 250 ml @ 12.06 mls/ hr [id number] PRN IV Rate change per MD; Start 09/13/17 at 12:35; Stop 09/14/17 at 09:03; Status DC Docusate Sodium (Colace) 100 mg BID PO Last administered on 09/14/17at 09:15; Start 09/14/17 at 09:15 Dopamine HCl/ Dextrose 500 ml @ 9.045 mls/ hr TITRATE PRN IV Maintain MAP > 65 mmHg; Start 09/13/17 at 12:45; Stop 09/14/17 at 09:03; Status DC Famotidine (Pepcid Inj) 20 mg ONCE ONCE IV PUSH Last administered on 09/10/17at 14:45; Start 09/10/17 at 14:15; Stop 09/10/17 at 14:16; Status DC Fentanyl Citrate (fentaNYL INJ) 25 mcg Q2H PRN IV PUSH BREAKTHROUGH PAIN Last administered on 09/14/17at 10:31; Start 09/14/17 at 09:15 Glucagon (Glucagon Inj) 1 mg UNSCH PRN OTHER HYPOGLYCEMIA-SEE COMMENTS; Start 09/14/17 at 09:15 Heparin Sodium (Porcine) (Heparin Inj) 4,000 units ONCE ONCE IV PUSH Last administered on 09/10/17at 17:27; Start 09/10/17 at 17:00; Stop 09/10/17 at 17:01; Status DC Heparin Sodium/ Dextrose 250 ml @ 10 mls/hr TITRATE PRN IV Coagulation Management Last administered on 09/13/17at 05:42; Start 09/10/17 at 17:00; Stop 09/14/17 at 09:03; Status DC Hydralazine HCl (Apresoline Inj) 10 mg Q4H PRN IV PUSH SEE LABEL COMMENTS; Start 09/13/17 at 12:45; Stop 09/14/17 at 09:03; Status DC Hydrochlorothiazide (Hydrodiuril) 6.25 mg DAILY PO Last administered on at 09:00; Start 09/11/17 at 09:00; Stop 09/11/17 at 10:44; Status DC Insulin Aspart (NovoLOG SUPPLEMENTAL SCALE) 1 02,06,10,14,18,22 SQ ; Start at 10:00 Insulin Human Regular 100 units/ Sodium Chloride 100 ml @ 3 mls/hr TITRATE PRN IV for blood glucose control; Start 09/13/17 at 12:45; Stop 09/14/17 at 09:03; Status DC Ketorolac Tromethamine (Toradol Inj) 15 mg Q6H PRN IV PUSH SEE LABEL COMMENTS Last administered on 09/14/17at 02:19; Start 09/13/17 at 12:45; Stop 09/15/17 at 12 :44 Lactated Ringer's 500 ml @ 500 mls/hr Q1H PRN IV SEE LABEL COMMENTS; Start 09/13 at 12:35; Stop 09/14/17 at 09:03; Status DC Magnesium Hydroxide (Milk Of Magnesia Liq) 30 ml DAILY PO ; Start 09/15/17 at 09 :00 Magnesium Sulfate 2 gm/Sodium Chloride 104 ml @ 50 mls/hr UNSCH PRN IV SEE LABEL COMMENTS; Start 09/13/17 at 12:45; Stop 09/14/17 at 09:03; Status DC Meperidine HCl (Demerol Inj) 12.5 mg Q4H PRN IV PUSH SEE LABEL COMMENTS; Start 09/13/17 at 12:45; Stop 09/14/17 at 09:03; Status DC Metoprolol Tartrate (Lopressor Inj) 2.5 mg Q1H PRN IV PUSH SEE LABEL COMMENTS; Start 09/13/17 at 12:45; Stop 09/14/17 at 09:03; Status DC Metoprolol Tartrate (Lopressor) 12.5 mg BID PO ; Start 09/14/17 at 21:00 Miscellaneous (Pill Splitter) 1 ea UNSCH PRN OTHER SEE LABEL COMMENTS; Start at 21:45 Miscellaneous Information (Post-op Orders (for Pharmacy)) STAT ONCE OTHER ; Start 09/13/17 at 12:45; Stop 09/13/17 at 17:07; Status DC Morphine Sulfate (Morphine Inj) 1 mg Q10M PRN IV PUSH PAIN SCALE 1 TO 5; Start 09/13/17 at 12:45; Stop 09/14/17 at 09:03; Status DC Multivitamins/ Minerals Therapeutic (Theragran M Tab) 1 tab DAILY PO ; Start 03/25 at 09:00 Naloxone HCl (Narcan Inj) 0.4 mg UNSCH PRN IV PUSH SEE LABEL COMMENTS; Start at 16:45; Stop 09/14/17 at 09:03; Status DC Nitroglycerin (Nitrostat Sl) 0.4 mg Q5M PRN SL CHEST PAIN; Start 09/10/17 at 17: 00; Stop 09/14/17 at 09:03; Status DC Nitroglycerin/ Dextrose 250 ml @ 1.5 mls/hr TITRATE PRN IV Maintain BP < 140/ 90 mmHg Last administered on 09/13/17at 13:35; Start 09/13/17 at 12:45; Stop at 09:03; Status DC Ondansetron HCl (Zofran Inj) 4 mg Q6H PRN IV PUSH NAUSEA OR VOMITING; Start 09/13/17 at 12:45 Pantoprazole Sodium (Protonix Inj) 40 mg Q12HR IV PUSH Last administered on 09/12at 20:50; Start 09/10/17 at 17:00; Stop 09/13/17 at 17:09; Status DC Pantoprazole Sodium (Protonix) 40 mg DAILY@06 PO Last administered on 09/14/17at 06:00; Start 09/14/17 at 06:00 Papaverine HCl 60 mg/Nitroglycerin 100 mcg/Diltiazem HCl 100 mg/Sodium Chloride 100 ml @ 0 mls/hr OIL PIT ATTENDANT IRRIGATION ; Start 09/11/17 at 13:45; Stop 09/13/17 at 08:00; Status DC Papaverine HCl 60 mg/Nitroglycerin 100 mcg/Verapamil HCl 100 mg/Sodium Chloride 100 ml @ 0 mls/hr OIL PIT ATTENDANT IRRIGATION Last administered on 09/13/17at 10:34; Start 09/13/17 at 08:15; Stop 09/13/17 at 17:09; Status DC Phenylephrine HCl 40 mg/Dextrose 500 ml @ 30 mls/hr TITRATE PRN IV Maintain MAP > 65 mmHg; Start 09/13/17 at 12:45; Stop 09/14/17 at 09:03; Status DC Polyethylene Glycol (Miralax) 17 gm DAILY PO ; Start 09/15/17 at 09:00 Potassium Bicarb/ Potassium Chloride (K-Lyte Cl Eff) 25 meq ONCE ONCE PO Last administered on 09/11/17at 16:02; Start 09/11/17 at 14:00; Stop 09/11/17 at 14: 01; Status DC Potassium Chloride 100 ml @ 50 mls/hr UNSCH PRN IV ON-CALL; Start 09/13/17 at 13:30; Stop 09/14/17 at 09:03; Status DC Potassium Chloride (KCl) 40 meq UNSCH PRN PO SEE LABEL COMMENTS; Start 09/13/17 at 12:45; Stop 09/14/17 at 09:03; Status DC Povidone Iodine (Betadine 5% Antisepsis Kit) 1 applic OIL PIT ATTENDANT PRN EACH NARE SEE LABEL COMMENTS; Start 09/13/17 at 06:30; Stop 09/14/17 at 09:03; Status DC Racepinephrine (Racepinephrine 2.25% Neb) 0.5 ml UNSCH X1 PRN NEB STRIDOR; Start 09/13/17 at 12:45; Stop 09/14/17 at 09:03; Status DC Sennosides (Senokot) 8.6 mg HS PO ; Start 09/14/17 at 21:00 Sodium Biphosphate/ Sodium Phosphate (Fleets Enema (Adult)) 118 ml UNSCH PRN RECTAL SEE LABEL COMMENTS; Start 09/14/17 at 09:15 Sodium Bicarbonate (Sodium Bicarbonate 8.4% Inj) 100 meq UNSCH PRN IV PUSH SEE LABEL COMMENTS; Start 09/13/17 at 12:45; Stop 09/14/17 at 09:03; Status DC Sodium Chloride (NS Flush) 2 ml UNSCH PRN IV FLUSH FLUSH AFTER USING IV ACCESS ; Start 09/13/17 at 12:45 Temazepam (Restoril) 7.5 mg ONCE ONCE PO Last administered on 09/12/17at 21:45; Start 09/12/17 at 21:45; Stop 09/12/17 at 21:46; Status DC A/P Problem List: (1) Multi-vessel coronary artery stenosis ICD Code: I25.10 - Atherosclerotic heart disease of [place] coronary artery without angina pectoris (2) NSTEMI (non-ST elevated myocardial infarction) ICD Code: I21.4 - Non-ST elevation (NSTEMI) myocardial infarction (3) Carcinoid tumor ICD Code: D3A.00 - Benign carcinoid tumor of unspecified site (4) Elevated troponin ICD Code: R74.8 - Abnormal levels of other serum enzymes Status: Acute (5) Chest pain ICD Code: R07.9 - Chest pain, unspecified Status: Acute Assessment and Plan A/P - NSTEMI s/p cardiac cath with multivessel disease; CT surgery consulted- s/p CABG continue asirin, plavix, BB, Amiodarone and statin- cardiology and CT surgery following. -hypertension; continue metoprolol- will monitor. -history of carcinoid tumor; f/u as outpatient. Problem Qualifiers (1) Chest pain: Qualified Codes: R07.9 - Chest pain, unspecified Gaudencio South MD Sep 14, 2017 11:12
[2017-09-14 12:23] LABS: CHOLESTEROL/ HDL RATIO 2.32 RATIO; HDL CHOLESTEROL 34.9 MG/DL (40.0-60.0)
--- NOTE | 2017-09-14 15:12 | PD.CARD.PN ---
Subjective Subjective Remarks Doing well overall Pain with deep breathing Objective Medications Current Medications Medications (Trade) Dose Ordered Sig/Thang Route Start Time Stop Time Status Last Admin (Pill Splitter) 1 ea UNSCH PRN OTHER 09/10/17 21:45 (Lipitor) 80 mg HS PO 09/11/17 21:00 09/13/17 21:45 (NS Flush) 2 ml BID IV FLUSH 09/13/17 21:00 09/14/17 08:17 (NS Flush) 2 ml UNSCH PRN IV FLUSH 09/13/17 12:45 (Aspirin Chew) 81 mg DAILY PO 09/14/17 09:00 09/14/17 08:17 (Plavix) 75 mg DAILY PO 09/14/17 09:00 09/14/17 08:17 (Protonix) 40 mg DAILY@06 PO 09/14/17 06:00 09/14/17 06:00 (Cordarone) 200 mg Q12HR PO 09/13/17 21:00 09/14/17 08:16 (Tylenol) 650 mg Q4H PRN PO 09/13/17 12:45 ([place] 5-325 Mg) 1 tab Q3H PRN PO 09/13/17 12:45 09/14/17 05:56 (Toradol Inj) 15 mg Q6H PRN IV PUSH 09/13/17 12:45 09/15/17 12:44 09/14/17 12:38 (Zofran Inj) 4 mg Q6H PRN IV PUSH 09/13/17 12:45 (D50w (Vial) Inj) 50 ml UNSCH PRN IV PUSH 09/13/17 12:45 (Duoneb Neb) 1 ampule Q2HR NEB PRN NEB 09/13/17 12:45 Cefazolin Sodium 2000 mg/Sodium Chloride 120 ml @ 240 mls/hr Q8H IV 09/13/17 18:30 09/15/17 02:59 09/14/17 10:30 (fentaNYL INJ) 25 mcg Q2H PRN IV PUSH 09/14/17 09:15 09/14/17 15:06 ([place] 5-325 Mg) 2 tab Q4H PRN PO 09/14/17 09:15 09/14/17 11:30 (Duoneb Neb) 1 ampule Q6HR WHILE AWAKE NEB NEB 09/14/17 14:00 09/16/17 13:59 09/14/17 13:15 (Colace) 100 mg BID PO 09/14/17 09:15 09/14/17 09:15 (Theragran M Tab) 1 tab DAILY PO 09/15/17 09:00 (Milk Of Magnesia Liq) 30 ml DAILY PO 09/15/17 09:00 (Dulcolax Supp) 10 mg UNSCH PRN RECTAL 09/14/17 09:15 (Miralax) 17 gm DAILY PO 09/15/17 09:00 (Senokot) 8.6 mg HS PO 09/14/17 21:00 (Fleets Enema (Adult)) 118 ml UNSCH PRN RECTAL 09/14/17 09:15 (Lopressor) 12.5 mg BID PO 09/14/17 21:00 (NovoLOG SUPPLEMENTAL SCALE) 1 02,06,10,14,18,22 SQ 09/14/17 10:00 (D50w (Vial) Inj) 50 ml UNSCH PRN IV PUSH 09/14/17 09:15 (Glucagon Inj) 1 mg UNSCH PRN OTHER 09/14/17 09:15 Vital Signs / I&O Vital Signs Date Time Temp Pulse Resp B/P (MAP) Pulse Ox O2 Delivery O2 Flow Rate FiO2 09/14/17 13:00 76 09/14/17 12:00 80 09/14/17 11:15 92 Nasal Cannula 2.00 09/14/17 11:15 97.7 93 18 119/69 (86) Arterial Line 09/14/17 09:04 95 Nasal Cannula 2.00 09/14/17 07:00 98.2 82 18 113/66 (82) 97 113/58 (76) 09/14/17 07:00 97 Nasal Cannula 3.00 09/14/17 07:00 81 09/14/17 06:56 20 09/14/17 06:40 20 09/14/17 04:41 98.6 09/14/17 03:19 20 09/14/17 03:00 98.6 78 20 104/60 (75) 96 115/60 (78) 09/14/17 03:00 96 Nasal Cannula 3.00 09/14/17 03:00 78 09/14/17 02:30 18 09/13/17 23:00 81 09/13/17 23:00 98.7 81 20 111/62 (78) 97 109/53 (71) 09/13/17 23:00 97 Nasal Cannula 4.00 09/13/17 22:45 98.6 09/13/17 20:08 97 Nasal Cannula 3.00 09/13/17 19:00 97.4 73 20 104/63 (77) 98 132/63 (86) 09/13/17 19:00 73 09/13/17 19:00 98 Nasal Cannula 4.00 09/13/17 15:40 40 09/13/17 15:40 Nasal Cannula 5 98 09/13/17 15:40 96 Nasal Cannula 5.00 I/O 09/13/17 09/13/17 09/13/17 09/14/17 09/14/17 09/14/17 07:00 15:00 23:00 07:00 15:00 23:00 Intake Total 1735 ml 2750 ml 3134 ml 1840 ml 100 ml Output Total 965 ml 375 ml 520 ml 620 ml Balance 770 ml 2375 ml 2614 ml 1220 ml 100 ml Intake Oral 240 ml 240 ml IV Total 1495 ml 1134 ml 1350 ml 100 ml Autotransfusion 250 ml Albumin 250 ml Other 2500 ml 2000 ml Output Urine Total 965 ml 250 ml 370 ml 415 ml Chest Tube Drainage Total 150 ml 205 ml Estimated Blood Loss 125 ml # Bowel Movements 0 Physical Exam GENERAL: NAD, AAOx3 SKIN: Warm and dry. HEAD: Atraumatic. Normocephalic. EYES: Pupils equal and round. No scleral icterus. No injection or drainage. ENT: No nasal bleeding or discharge. Mucous membranes pink and moist. NECK: Trachea midline. No JVD. CARDIOVASCULAR: Regular rate and rhythm. RESPIRATORY: No accessory muscle use. Clear to auscultation. Breath sounds equal bilaterally. GASTROINTESTINAL: Abdomen soft, non-tender, nondistended. Hepatic and splenic margins not palpable. MUSCULOSKELETAL: Extremities without clubbing, cyanosis, or edema. No obvious deformities. NEUROLOGICAL: No focal deficits Laboratory Laboratory Tests Test 09/14/17 04:30 White Blood Count 8.9 TH/MM3 Red Blood Count 3.34 MIL/MM3 Hemoglobin 11.2 GM/DL Hematocrit 32.2 % Mean Corpuscular Volume 96.5 FL Mean Corpuscular Hemoglobin 33.4 PG Mean Corpuscular Hemoglobin Concent 34.7 % Red Cell Distribution Width 14.5 % Platelet Count 172 TH/MM3 Mean Platelet Volume 8.2 FL Blood Urea Nitrogen 10 MG/DL Creatinine 0.70 MG/DL Random Glucose 115 MG/DL Calcium Level 8.1 MG/DL Magnesium Level 2.1 MG/DL Sodium Level 137 MEQ/L Potassium Level 4.0 MEQ/L Chloride Level 105 MEQ/L Carbon Dioxide Level 21.0 MEQ/L Anion Gap 11 MEQ/L Estimat Glomerular Filtration Rate 111 ML/MIN Triglycerides Level 79 MG/DL Cholesterol Level 81 MG/DL LDL Cholesterol 30 MG/DL HDL Cholesterol 34.9 MG/DL Cholesterol/HDL Ratio 2.32 RATIO Imaging Last 24 hours Impressions Chest X-Ray 09/14/17 0500 Signed Impressions: Service Date/Time: Thursday, September 14, 2017 04:13 - CONCLUSION: Stable chest with scattered parenchymal densities. Ramirez Lares MD Assessment and Plan Problem List: (1) NSTEMI (non-ST elevated myocardial infarction) ICD Codes: I21.4 - Non-ST elevation (NSTEMI) myocardial infarction (2) Multi-vessel coronary artery stenosis ICD Codes: I25.10 - Atherosclerotic heart disease of [place] coronary artery without angina pectoris (3) Chest pain ICD Codes: R07.9 - Chest pain, unspecified Status: Acute (4) Carcinoid tumor ICD Codes: D3A.00 - Benign carcinoid tumor of unspecified site (5) S/P CABG x 3 ICD Codes: Z95.1 - Presence of aortocoronary bypass graft Assessment and Plan 1) NSTEMI/MVCAD s/p CABGx3 POD #1 DAWSON to LAD SVG to Ramus SVG to RCA 2) ASA/Plavix/Amio/Statin Possible add BB tomorrow 3) Appropriate pain secondary to chest tubes Problem Qualifiers (1) Chest pain: Qualified Codes: R07.9 - Chest pain, unspecified Joseph Reese DO Sep 14, 2017 15:12
--- NOTE | 2017-09-14 15:22 | EKG ---
Date Performed: 09/14/2017 Time Performed: 05:29:32 PTAGE: 71 years EKG: Sinus rhythm Since the previous tracing, no significant change noted Normal ECG PREVIOUS TRACING : 09/10/2017 20.15 DOCTOR: Rose Alatorre Interpretating Date/Time 09/14/2017 15:14:15
[2017-09-14] MEDS: ATORVASTATIN 80 MG TAB PO SCH (21:33)
[2017-09-14] MEDS: METOPROLOL TARTRATE 25 MG TAB PO SCH (21:33)
[2017-09-14] MEDS: SENNOSIDES 8.6 MG TAB PO SCH (21:33)
[2017-09-15] VITALS (28 sets, daily range): BP systolic 115–148; BP diastolic 66–84; PULSE 71–110; RESP 14–20; TEMP 98.1–98.6; O2SAT 92–97
[2017-09-15] MEDS: KETOROLAC TROMETHAMINE 30 MG/ML (IVP) VIAL IV PUSH PRN ×2 (00:01→10:32)
[2017-09-15] MEDS: INSULIN ASPART SUPPLEMENTAL SCALE SQ SCH ×6 (02:00→21:12)
[2017-09-15] MEDS: CEFAZOLIN INJ 2,000 MG in SODIUM CHLORIDE 0.9% INJ 100 ML IV SCH (03:29)
[2017-09-15] MEDS: ACETAMINOPHEN/HYDROcodone 325 MG/5 MG TAB PO PRN ×7 (03:58→21:07)
[2017-09-15] MEDS: PANTOPRAZOLE SOD 40 MG DELAYED RELEASE TAB PO SCH (05:32)
[2017-09-15 07:43] LABS: BASOPHIL % 0.2 % (0.0-2.0); EOSINOPHIL # 0.3 TH/MM3 (0-0.4); EOSINOPHIL % 3.3 % (0.0-4.0); HEMATOCRIT 29.9 % (39.0-51.0); HEMOGLOBIN 10.3 GM/DL (13.0-17.0); LYMPH % 5.2 % (9.0-44.0); LYMPHOCYTE # 0.5 TH/MM3 (1.0-4.8); MEAN CELL VOLUME 97.1 FL (80.0-100.0); MEAN CORPUSCULAR HEMOGLOBIN 33.5 PG (27.0-34.0); MEAN CORPUSCULAR HGB CONC 34.5 % (32.0-36.0); MEAN PLATELET VOLUME 8.2 FL (7.0-11.0); MONO % 11.7 % (0.0-8.0); NEUT % 79.6 % (16.0-70.0); PLATELET COUNT 180 TH/MM3 (150-450); RED BLOOD COUNT 3.08 MIL/MM3 (4.50-5.90); RED CELL DISTRIBUTION WIDTH 14.5 % (11.6-17.2); WHITE BLOOD COUNT 8.8 TH/MM3 (4.0-11.0)
[2017-09-15] MEDS: RESP: ALBUTEROL 2.5 MG/IPRATROPIUM 0.5 MG NEB (SCH) NEB ×3 (07:48→20:37)
[2017-09-15 08:10] LABS: BICARBONATE 25.2 MEQ/L (21.0-32.0); CREATININE 0.73 MG/DL (0.60-1.30); MAGNESIUM 2.3 MG/DL (1.5-2.5)
--- NOTE | 2017-09-15 08:28 | HHI.PR ---
Subjective Remarks The patient was resting comfortably in bed. He stated he only had pain where the chest tubes were. He has some pain upon deep breathing. He needs to go to the bathroom to have a bowel movement. He has not had much of an appetite. Objective Vitals Vital Signs Date Time Temp Pulse Resp B/P (MAP) Pulse Ox O2 Delivery O2 Flow Rate FiO2 09/15/17 07:49 97 Nasal Cannula 2.00 09/15/17 07:30 96 09/15/17 07:30 98.2 88 14 122/76 (91) 92 09/15/17 07:30 92 Nasal Cannula 3.00 09/15/17 06:17 78 09/15/17 05:00 71 09/15/17 04:44 92 Nasal Cannula 3.00 98 09/15/17 04:43 98.1 88 115/70 (85) 92 09/15/17 04:00 90 09/15/17 03:00 76 09/15/17 02:00 80 09/15/17 01:00 72 09/15/17 00:27 94 Nasal Cannula 3.00 09/15/17 00:26 98.2 85 129/66 (87) 94 09/15/17 00:00 84 09/15/17 00:00 16 09/14/17 23:00 90 09/14/17 22:00 90 09/14/17 21:00 88 09/14/17 20:00 84 09/14/17 19:48 96 Nasal Cannula 2.00 09/14/17 19:00 94 Nasal Cannula 3.00 09/14/17 19:00 98.1 88 117/73 (88) 94 09/14/17 19:00 84 09/14/17 16:40 18 09/14/17 15:15 98.2 87 18 111/68 (82) 91 09/14/17 15:15 92 Nasal Cannula 2.00 09/14/17 15:01 96 09/14/17 14:00 96 09/14/17 13:00 76 09/14/17 12:00 80 09/14/17 11:15 92 Nasal Cannula 2.00 09/14/17 11:15 97.7 93 18 119/69 (86) Arterial Line 09/14/17 09:04 95 Nasal Cannula 2.00 I/O 409/14/17 09/14/17 09/15/17 09/15/17 09/15/17 07:00 15:00 23:00 07:00 15:00 23:00 Intake Total 1840 ml 100 ml 480 ml 460 ml Output Total 620 ml 440 ml 400 ml Balance 1220 ml 100 ml 40 ml 60 ml Intake Oral 240 ml 480 ml 360 ml IV Total 1350 ml 100 ml 100 ml Albumin 250 ml Output Urine Total 415 ml 200 ml 250 ml Chest Tube Drainage Total 205 ml 240 ml 150 ml # Voids 1 # Bowel Movements 0 Result Diagram: 09/15/17 0714 09/15/17 0714 Imaging Last Impressions Chest X-Ray 09/14/17 0500 Signed Impressions: Service Date/Time: Thursday, September 14, 2017 04:13 - CONCLUSION: Stable chest with scattered parenchymal densities. Ramirez Lares MD Lower Extremity Ultrasound 09/11/17 0000 Signed Impressions: Service Date/Time: Monday, September 11, 2017 18:51 - CONCLUSION: Venous mapping as above. Ravinder Breaux MD FACR Carotid Artery Ultrasound 09/11/17 0000 Signed Impressions: Service Date/Time: Monday, September 11, 2017 19:19 - CONCLUSION: Negative for hemodynamically significant stenosis. Ravinder Breaux MD FACR CT Angiography 09/10/17 0000 Signed Impressions: Service Date/Time: September 16:08 - CONCLUSION: The study is negative for pulmonary embolism. Arie Gordillo MD Objective Remarks GENERAL: This is a well-nourished, well-developed patient, in no apparent distress. HEENT: NC, AT. CARDIOVASCULAR: Regular rate and regular rhythm without murmurs, gallops, or rubs. RESPIRATORY: Clear to auscultation. Breath sounds equal bilaterally. No wheezes , rales, or rhonchi. GASTROINTESTINAL: Abdomen soft, non-tender, nondistended. Normal, active bowel sounds. MUSCULOSKELETAL: Extremities without clubbing, cyanosis, or edema. Chest tubes in place. NEURO: Alert & Oriented x4 to person, place, time, situation. Moves all ext x4. PSYCH: mood and affect appropriate. Procedures 09/11/2017 PROCEDURE: Left heart catheterization, coronary angiogram, moderate sedation 15 minutes. PREPROCEDURE DIAGNOSES: Non-ST elevation myocardial infarction, coronary insufficiency. POSTPROCEDURE DIAGNOSES: Multivessel coronary artery disease, non-ST elevation myocardial infarction. MEDICATIONS: Versed 0.5 mg, fentanyl 25 mcg, heparin 3300 units., nitroglycerin 200 mcg, restarted heparin drip, started nitroglycerin drip at 5 mcg per minute. CONTRAST USED: 40 mL FLUOROSCOPY: 2.9 minutes. MODERATE SEDATION: 15 minutes. ESTIMATED BLOOD LOSS: 10 mL PROCEDURAL SUMMARY: Pavel Whitman is a pleasant 71-year-old male who presented to [facility] Emergency Room due to chest pain. He was found to have an elevated troponin and because of this, he was recommended cardiac catheterization. Risks, benefits and alternatives were explained to him and he consented as such. He was brought to the lab and prepped in the usual sterile fashion. The right radial artery was accessed using a modified Seldinger technique and placement of a 5/6 [place] Slender sheath. This was easily aspirated and flushed. A JR4 was advanced over a J-wire to the ascending aorta and across the aortic valve for measurement of left ventricular pressure. This was pulled back across the aortic valve showing no significant gradient of aortic stenosis. JR4 was used for selective angiography of the right coronary artery system. This is exchanged out for a JL3.5, which was used for selective angiography of the left coronary artery system. JL3.5 was removed over a J wire. A radial band was placed over the arteriotomy site for hemostasis. The patient was started on a heparin and nitroglycerin drip. 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 FINDINGS: LEFT MAIN: Normal size vessel with adequate reflux and no significant disease. It trifurcates into an LAD, circumflex, and ramus. LEFT ANTERIOR DESCENDING: A small to moderate sized vessel with diffuse 70% disease throughout the proximal portion and a 90% stenosis in the mid portion. Distally, the vessel has no significant disease. It gives off 2 small diagonals. RAMUS: Overall small vessel with a 99% stenosis in the mid portion. After this, it bifurcates into an upper and lower branch with MASON 1 flow noted. LEFT CIRCUMFLEX: Small to moderate sized vessel with diffuse 50% disease throughout the mid portion. It gives off 1 obtuse marginal, which is overall small and tortuous. It appears that the second obtuse marginal is 100% occluded, but overall around 1 mm in size. RIGHT CORONARY ARTERY: Moderate to large size vessel with a 90% stenosis in the proximal to mid portion. Distally it gives off a PDA with a small PLB. LEFT VENTRICULAR END DIASTOLIC PRESSURE: 12. IMPRESSIONS: 1. Multivessel coronary artery disease. 2. Coronary insufficiency. 3. Non-ST elevation myocardial infarction. RECOMMENDATIONS: 1. Mr. Whitman presented with chest pain concerning for coronary insufficiency and was found to have multivessel disease and because of this he will be recommended coronary artery bypass grafting. 2. I discussed the case with Dr. Real who will see the patient in consultation. 3. We will check a 2-D echo to look at his overall left ventricular function, cardiac structure and possible valvulopathies. 4. He has since been started on a heparin drip and nitroglycerin drip. If at anytime he has chest pain unrelieved by medication, hemodynamically or electrically unstable, then consideration will be made for further support, along with earlier consideration of coronary artery bypass grafting. Thank you for allowing me to see Pavel Whitman. If there any questions, please do not hesitate to call. Medications and IVs Current Medications Medications (Trade) Dose Ordered Sig/Thang Route Start Time Stop Time Status Last Admin (Pill Splitter) 1 ea UNSCH PRN OTHER 09/10/17 21:45 (Lipitor) 80 mg HS PO 09/11/17 21:00 09/14/17 21:33 (NS Flush) 2 ml BID IV FLUSH 09/13/17 21:00 09/14/17 21:33 (NS Flush) 2 ml UNSCH PRN IV FLUSH 09/13/17 12:45 (Aspirin Chew) 81 mg DAILY PO 09/14/17 09:00 09/14/17 08:17 (Plavix) 75 mg DAILY PO 09/14/17 09:00 09/14/17 08:17 (Protonix) 40 mg DAILY@06 PO 09/14/17 06:00 09/15/17 05:32 (Cordarone) 200 mg Q12HR PO 09/13/17 21:00 09/14/17 21:34 (Tylenol) 650 mg Q4H PRN PO 09/13/17 12:45 (Harrison 5-325 Mg) 1 tab Q3H PRN PO 09/13/17 12:45 09/14/17 05:56 (Toradol Inj) 15 mg Q6H PRN IV PUSH 09/13/17 12:45 09/15/17 12:44 09/15/17 00:01 (Zofran Inj) 4 mg Q6H PRN IV PUSH 09/13/17 12:45 (D50w (Vial) Inj) 50 ml UNSCH PRN IV PUSH 09/13/17 12:45 (Duoneb Neb) 1 ampule Q2HR NEB PRN NEB 09/13/17 12:45 (fentaNYL INJ) 25 mcg Q2H PRN IV PUSH 09/14/17 09:15 09/14/17 15:06 (Harrison 5-325 Mg) 2 tab Q4H PRN PO 09/14/17 09:15 09/15/17 03:58 (Duoneb Neb) 1 ampule Q6HR WHILE AWAKE NEB NEB 09/14/17 14:00 09/16/17 13:59 09/15/17 07:48 (Colace) 100 mg BID PO 09/14/17 09:15 09/14/17 21:33 (Theragran M Tab) 1 tab DAILY PO 09/15/17 09:00 (Milk Of Magnesia Liq) 30 ml DAILY PO 09/15/17 09:00 (Dulcolax Supp) 10 mg UNSCH PRN RECTAL 09/14/17 09:15 (Miralax) 17 gm DAILY PO 09/15/17 09:00 (Senokot) 8.6 mg HS PO 09/14/17 21:00 09/14/17 21:33 (Fleets Enema (Adult)) 118 ml UNSCH PRN RECTAL 09/14/17 09:15 (Lopressor) 12.5 mg BID PO 09/14/17 21:00 09/14/17 21:33 (NovoLOG SUPPLEMENTAL SCALE) 1 02,06,10,14,18,22 SQ 09/14/17 10:00 (D50w (Vial) Inj) 50 ml UNSCH PRN IV PUSH 09/14/17 09:15 (Glucagon Inj) 1 mg UNSCH PRN OTHER 09/14/17 09:15 A/P Problem List: (1) Multi-vessel coronary artery stenosis ICD Code: I25.10 - Atherosclerotic heart disease of [place] coronary artery without angina pectoris (2) NSTEMI (non-ST elevated myocardial infarction) ICD Code: I21.4 - Non-ST elevation (NSTEMI) myocardial infarction (3) Carcinoid tumor ICD Code: D3A.00 - Benign carcinoid tumor of unspecified site (4) Elevated troponin ICD Code: R74.8 - Abnormal levels of other serum enzymes Status: Acute (5) Chest pain ICD Code: R07.9 - Chest pain, unspecified Status: Acute Assessment and Plan NSTEMI EKG significant for sinus bradycardia without ST segment elevations or depressions. Troponin trended up to 1.7. He was started on a heparin gtt and cardiology was consulted. S/p cardiac cath with multivessel disease; CT surgery consulted- s/p CABG. - continue aspirin, Plavix, BB, Amiodarone and statin. - chest tubes per CTS. - rehab efforts. - oxygen and nebs as needed. Hypertension Well controlled. - continue current regimen. 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 - Follows as outpatient. Anemia S/t surgery. - follow CBC. DVT prophylaxis: Per surgery Discharge Planning Per CTS Problem Qualifiers (1) Chest pain: Qualified Codes: R07.9 - Chest pain, unspecified Kristofer Torres DO Sep 15, 2017 08:28
[2017-09-15] MEDS: DOCUSATE SODIUM 100 MG CAP PO SCH ×2 (09:00→21:06)
[2017-09-15] MEDS ORDERED: POTASSIUM CHLORIDE 10 MEQ CONTROLLED RELEASE TAB PO ONE (09:00)
[2017-09-15] MEDS: SODIUM CHLORIDE 0.9% FLUSH 10 ML FLUSH IV FLUSH SCH ×2 (09:00→21:06)
[2017-09-15] MEDS: MULTIVITAMINS/MINERALS THERAPEUTIC TAB PO SCH (09:00)
[2017-09-15] MEDS ORDERED: FUROSEMIDE 40 MG/4 ML VIAL IV PUSH ONE (09:00)
--- NOTE | 2017-09-15 09:38 | PD.CARD.PN ---
Subjective Subjective Remarks Doing well overall Pain with deep breathing Up and ambulating Objective Medications Current Medications Medications (Trade) Dose Ordered Sig/Thang Route Start Time Stop Time Status Last Admin (Pill Splitter) 1 ea UNSCH PRN OTHER 09/10/17 21:45 (Lipitor) 80 mg HS PO 09/11/17 21:00 09/14/17 21:33 (NS Flush) 2 ml BID IV FLUSH 09/13/17 21:00 09/14/17 21:33 (NS Flush) 2 ml UNSCH PRN IV FLUSH 09/13/17 12:45 (Aspirin Chew) 81 mg DAILY PO 09/14/17 09:00 09/14/17 08:17 (Plavix) 75 mg DAILY PO 09/14/17 09:00 09/14/17 08:17 (Protonix) 40 mg DAILY@06 PO 09/14/17 06:00 09/15/17 05:32 (Cordarone) 200 mg Q12HR PO 09/13/17 21:00 09/14/17 21:34 (Tylenol) 650 mg Q4H PRN PO 09/13/17 12:45 ([place]ster 5-325 Mg) 1 tab Q3H PRN PO 09/13/17 12:45 09/14/17 05:56 (Toradol Inj) 15 mg Q6H PRN IV PUSH 09/13/17 12:45 09/15/17 12:44 09/15/17 00:01 (Zofran Inj) 4 mg Q6H PRN IV PUSH 09/13/17 12:45 (D50w (Vial) Inj) 50 ml UNSCH PRN IV PUSH 09/13/17 12:45 (Duoneb Neb) 1 ampule Q2HR NEB PRN NEB 09/13/17 12:45 (fentaNYL INJ) 25 mcg Q2H PRN IV PUSH 09/14/17 09:15 09/14/17 15:06 ([place]ster 5-325 Mg) 2 tab Q4H PRN PO 09/14/17 09:15 09/15/17 03:58 (Duoneb Neb) 1 ampule Q6HR WHILE AWAKE NEB NEB 09/14/17 14:00 09/16/17 13:59 09/15/17 07:48 (Colace) 100 mg BID PO 09/14/17 09:15 09/14/17 21:33 (Theragran M Tab) 1 tab DAILY PO 09/15/17 09:00 (Milk Of Magnesia Liq) 30 ml DAILY PO 09/15/17 09:00 (Dulcolax Supp) 10 mg UNSCH PRN RECTAL 09/14/17 09:15 (Miralax) 17 gm DAILY PO 09/15/17 09:00 (Senokot) 8.6 mg HS PO 09/14/17 21:00 09/14/17 21:33 (Fleets Enema (Adult)) 118 ml UNSCH PRN RECTAL 09/14/17 09:15 (Lopressor) 12.5 mg BID PO 09/14/17 21:00 09/14/17 21:33 (NovoLOG SUPPLEMENTAL SCALE) 1 02,06,10,14,18,22 SQ 09/14/17 10:00 (D50w (Vial) Inj) 50 ml UNSCH PRN IV PUSH 09/14/17 09:15 (Glucagon Inj) 1 mg UNSCH PRN OTHER 09/14/17 09:15 Vital Signs / I&O Vital Signs Date Time Temp Pulse Resp B/P (MAP) Pulse Ox O2 Delivery O2 Flow Rate FiO2 09/15/17 07:49 97 Nasal Cannula 2.00 09/15/17 07:30 96 09/15/17 07:30 98.2 88 14 122/76 (91) 92 09/15/17 07:30 92 Nasal Cannula 3.00 09/15/17 06:17 78 09/15/17 05:00 71 09/15/17 04:44 92 Nasal Cannula 3.00 98 09/15/17 04:43 98.1 88 115/70 (85) 92 09/15/17 04:00 90 09/15/17 03:00 76 09/15/17 02:00 80 09/15/17 01:00 72 09/15/17 00:27 94 Nasal Cannula 3.00 09/15/17 00:26 98.2 85 129/66 (87) 94 09/15/17 00:00 84 09/15/17 00:00 16 09/14/17 23:00 90 09/14/17 22:00 90 09/14/17 21:00 88 09/14/17 20:00 84 09/14/17 19:48 96 Nasal Cannula 2.00 09/14/17 19:00 94 Nasal Cannula 3.00 09/14/17 19:00 98.1 88 117/73 (88) 94 09/14/17 19:00 84 09/14/17 16:40 18 09/14/17 15:15 98.2 87 18 111/68 (82) 91 09/14/17 15:15 92 Nasal Cannula 2.00 09/14/17 15:01 96 09/14/17 14:00 96 09/14/17 13:00 76 09/14/17 12:00 80 09/14/17 11:15 92 Nasal Cannula 2.00 09/14/17 11:15 97.7 93 18 119/69 (86) Arterial Line I/O 09/14/17 09/14/17 09/14/17 09/15/17 09/15/17 09/15/17 07:00 15:00 23:00 07:00 15:00 23:00 Intake Total 1840 ml 100 ml 480 ml 460 ml Output Total 620 ml 440 ml 400 ml Balance 1220 ml 100 ml 40 ml 60 ml Intake Oral 240 ml 480 ml 360 ml IV Total 1350 ml 100 ml 100 ml Albumin 250 ml Output Urine Total 415 ml 200 ml 250 ml Chest Tube Drainage Total 205 ml 240 ml 150 ml # Voids 1 # Bowel Movements 0 Physical Exam GENERAL: NAD, AAOx3 SKIN: Warm and dry. HEAD: Atraumatic. Normocephalic. EYES: Pupils equal and round. No scleral icterus. No injection or drainage. ENT: No nasal bleeding or discharge. Mucous membranes pink and moist. NECK: Trachea midline. No JVD. CARDIOVASCULAR: Regular rate and rhythm. RESPIRATORY: No accessory muscle use. Clear to auscultation. Breath sounds equal bilaterally. GASTROINTESTINAL: Abdomen soft, non-tender, nondistended. Hepatic and splenic margins not palpable. MUSCULOSKELETAL: Extremities without clubbing, cyanosis, or edema. No obvious deformities. NEUROLOGICAL: No focal deficits Laboratory Laboratory Tests Test 09/15/17 07:14 White Blood Count 8.8 TH/MM3 Red Blood Count 3.08 MIL/MM3 Hemoglobin 10.3 GM/DL Hematocrit 29.9 % Mean Corpuscular Volume 97.1 FL Mean Corpuscular Hemoglobin 33.5 PG Mean Corpuscular Hemoglobin Concent 34.5 % Red Cell Distribution Width 14.5 % Platelet Count 180 TH/MM3 Mean Platelet Volume 8.2 FL Neutrophils (%) (Auto) 79.6 % Lymphocytes (%) (Auto) 5.2 % Monocytes (%) (Auto) 11.7 % Eosinophils (%) (Auto) 3.3 % Basophils (%) (Auto) 0.2 % Neutrophils # (Auto) 7.0 TH/MM3 Lymphocytes # (Auto) 0.5 TH/MM3 Monocytes # (Auto) 1.0 TH/MM3 Eosinophils # (Auto) 0.3 TH/MM3 Basophils # (Auto) 0.0 TH/MM3 CBC Comment DIFF FINAL Differential Comment Blood Urea Nitrogen 15 MG/DL Creatinine 0.73 MG/DL Random Glucose 108 MG/DL Calcium Level 8.0 MG/DL Magnesium Level 2.3 MG/DL Sodium Level 134 MEQ/L Potassium Level 3.8 MEQ/L Chloride Level 103 MEQ/L Carbon Dioxide Level 25.2 MEQ/L Anion Gap 6 MEQ/L Estimat Glomerular Filtration Rate 106 ML/MIN Assessment and Plan Problem List: (1) NSTEMI (non-ST elevated myocardial infarction) ICD Codes: I21.4 - Non-ST elevation (NSTEMI) myocardial infarction (2) Multi-vessel coronary artery stenosis ICD Codes: I25.10 - Atherosclerotic heart disease of [place] coronary artery without angina pectoris (3) Chest pain ICD Codes: R07.9 - Chest pain, unspecified Status: Acute (4) Carcinoid tumor ICD Codes: D3A.00 - Benign carcinoid tumor of unspecified site (5) S/P CABG x 3 ICD Codes: Z95.1 - Presence of aortocoronary bypass graft Assessment and Plan 1) NSTEMI/MVCAD s/p CABGx3 POD #2 DAWSON to LAD SVG to Ramus SVG to RCA 2) ASA/Plavix/Amio/Statin 3) Appropriate pain secondary to chest tubes Waiting for chest tubes to be removed 4) Con't to ambulate Problem Qualifiers (1) Chest pain: Qualified Codes: R07.9 - Chest pain, unspecified Joseph Reese DO Sep 15, 2017 09:38
[2017-09-15] MEDS: MAGNESIUM HYDROXIDE SUSP 30 ML CUP PO SCH (09:44)
[2017-09-15] MEDS: ASPIRIN 81 MG CHEW TAB PO SCH (09:45)
[2017-09-15] MEDS: POLYETHYLENE GLYCOL 17 GM PKG PO SCH (09:46)
[2017-09-15] MEDS: CLOPIDOGREL 75 MG TAB PO SCH (09:46)
[2017-09-15] MEDS: AMIODARONE 200 MG TAB PO SCH ×2 (09:46→21:06)
[2017-09-15] MEDS: METOPROLOL TARTRATE 25 MG TAB PO SCH ×2 (09:46→21:06)
--- NOTE | 2017-09-15 10:35 | PD.CAR.PN ---
CVT Progress Note Subjective/Hospital Course: 1-year-old male visiting from the [place] area, on vacation with his family. He presented to the emergency room with substernal chest pain, 03/17, associated with diaphoresis, positive for troponin, ruled in for a non-STEMI. Had been at [place] the day before, thought it was indigestion, had that on Thursday night and on the EMS was called. He underwent cardiac catheterization today by Dr. Reese showing proximal LAD 70%, mid-distal LAD 90%, diagonal 10%, the circ was 60%, the RCA 95% and the ramus 99%. We were consulted to evaluate for coronary artery bypass grafting. Echocardiogram is pending for ejection fraction. 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 surgery:. 09/13 Emergent Off-pump Coronary Artery Bypass Grafting x 3 with Left Internal Mammary Artery (DAWSON) to Left Anterior Descending (LAD), reverse saphenous vein graft to the Ramus Marginalis (RM), reverse saphenous vein graft to the distal Right Coronary Artery (RCA), Ultrasound Guided Dissection of the LAD, Left Leg Endoscopic Vein [place] extubated after surgery crystalloid 2500cc, cell saver 250cc 09/14 on nasal cannula chest tube drained 205cc/ 12 hrs start BB this pm if BP allows await 2edcho for EF / ok to transfer to stepdown 09/15 pt up in chair, on nasal cannula remains on 02 gentle diuresis chest tube drained 150cc/ 12 hrs / will leave in for now await echo for EF Objective: Vital Signs Date Time Temp Pulse Resp B/P (MAP) Pulse Ox O2 Delivery O2 Flow Rate FiO2 09/15/17 07:49 97 Nasal Cannula 2.00 09/15/17 07:30 96 09/15/17 07:30 98.2 88 14 122/76 (91) 92 09/15/17 07:30 92 Nasal Cannula 3.00 09/15/17 06:17 78 09/15/17 05:00 71 09/15/17 04:44 92 Nasal Cannula 3.00 98 09/15/17 04:43 98.1 88 115/70 (85) 92 09/15/17 04:00 90 09/15/17 03:00 76 09/15/17 02:00 80 09/15/17 01:00 72 09/15/17 00:27 94 Nasal Cannula 3.00 09/15/17 00:26 98.2 85 129/66 (87) 94 09/15/17 00:00 84 09/15/17 00:00 16 09/14/17 23:00 90 09/14/17 22:00 90 09/14/17 21:00 88 09/14/17 20:00 84 09/14/17 19:48 96 Nasal Cannula 2.00 09/14/17 19:00 94 Nasal Cannula 3.00 09/14/17 19:00 98.1 88 117/73 (88) 94 09/14/17 19:00 84 09/14/17 16:40 18 09/14/17 15:15 98.2 87 18 111/68 (82) 91 09/14/17 15:15 92 Nasal Cannula 2.00 09/14/17 15:01 96 09/14/17 14:00 96 09/14/17 13:00 76 09/14/17 12:00 80 09/14/17 11:15 92 Nasal Cannula 2.00 09/14/17 11:15 97.7 93 18 119/69 (86) Arterial Line Labs: Laboratory Tests Test 09/15/17 07:14 White Blood Count 8.8 TH/MM3 (4.0-11.0) Red Blood Count 3.08 MIL/MM3 (4.50-5.90) Hemoglobin 10.3 GM/DL (13.0-17.0) Hematocrit 29.9 % (39.0-51.0) Mean Corpuscular Volume 97.1 FL (80.0-100.0) Mean Corpuscular Hemoglobin 33.5 PG (27.0-34.0) Mean Corpuscular Hemoglobin Concent 34.5 % (32.0-36.0) Red Cell Distribution Width 14.5 % (11.6-17.2) Platelet Count 180 TH/MM3 (150-450) Mean Platelet Volume 8.2 FL (7.0-11.0) Neutrophils (%) (Auto) 79.6 % (16.0-70.0) Lymphocytes (%) (Auto) 5.2 % (9.0-44.0) Monocytes (%) (Auto) 11.7 % (0.0-8.0) Eosinophils (%) (Auto) 3.3 % (0.0-4.0) Basophils (%) (Auto) 0.2 % (0.0-2.0) Neutrophils # (Auto) 7.0 TH/MM3 (1.8-7.7) Lymphocytes # (Auto) 0.5 TH/MM3 (1.0-4.8) Monocytes # (Auto) 1.0 TH/MM3 (0-0.9) Eosinophils # (Auto) 0.3 TH/MM3 (0-0.4) Basophils # (Auto) 0.0 TH/MM3 (0-0.2) CBC Comment DIFF FINAL Differential Comment Blood Urea Nitrogen 15 MG/DL (7-18) Creatinine 0.73 MG/DL (0.60-1.30) Random Glucose 108 MG/DL (74-106) Calcium Level 8.0 MG/DL (8.5-10.1) Magnesium Level 2.3 MG/DL (1.5-2.5) Sodium Level 134 MEQ/L (136-145) Potassium Level 3.8 MEQ/L (3.5-5.1) Chloride Level 103 MEQ/L (98-107) Carbon Dioxide Level 25.2 MEQ/L (21.0-32.0) Anion Gap 6 MEQ/L (5-15) Estimat Glomerular Filtration Rate 106 ML/MIN (>89) Result Diagram: 09/15/17 0714 09/15/17 0714 (1) NSTEMI (non-ST elevated myocardial infarction) (2) Multi-vessel coronary artery stenosis (3) Chest pain (4) Carcinoid tumor (5) S/P CABG x 3 Plan: on ASA, statin , BB , plavix OOB, ambulate pulm toileting pain control CM to eval for [facility] at discharge Problem Qualifiers (1) Chest pain: Qualified Codes: R07.9 - Chest pain, unspecified Consuelo Staley Sep 15, 2017 10:35
--- NOTE | 2017-09-15 16:32 | ECHRPT ---
Indication: CAD CONCLUSIONS Technically difficult study.normal left ventricular size. Wall thickness is measured at the upper limits of normal. The left ventricular systolic function is normal with an estimated ejection fraction in the range of 55-60%. No definite wall motion abnormalities. Mild calcification of the anterior mitral valve leaflet. Trace mitral valve regurgitation. BP: 133 / 82 HR: 80 Rhythm: Sinus MEASUREMENTS (Male / Female) Normal Values Technical Quality:Fair 2D ECHO LVOT Diameter 2.4 cm Aortic Root Diameter 3.6 cm M-MODE AV Cusp Separation MM 2.4 cm DOPPLER AV Peak Velocity 112.0 cm/s AV Peak Gradient 5.0 mmHg AV Mean Gradient 3.0 mmHg AV Velocity Time Integral 17.2 cm LVOT Peak Velocity 74.4 cm/s LVOT Peak Gradient 2.2 mmHg LVOT Velocity Time Integral 11.0 cm AV Area Cont Eq vti 2.9 cm AV Area Cont Eq pk 3.0 cm Mitral E Point Velocity 81.7 cm/s Mitral A Point Velocity 44.4 cm/s Mitral E to A Ratio 1.8 LV E' Lateral Velocity 7.2 cm/s Mitral E to LV E' Lateral Ratio 11.3 LV E' Septal Velocity 5.8 cm/s Mitral E to LV E' Septal Ratio 14.2 TR Peak Velocity 295.0 cm/s TR Peak Gradient 34.8 mmHg Right Atrial Pressure 10.0 mmHg Pulmonary Artery Systolic Pressu 44.8 mmHg Right Ventricular Systolic Press 44.8 mmHg PV Peak Velocity 117.0 cm/s PV Peak Gradient 5.5 mmHg FINDINGS LEFT VENTRICLE Technically difficult study.normal left ventricular size. Wall thickness is measured at the upper limits of normal. The left ventricular systolic function is normal with an estimated ejection fraction in the range of 55-60%. No definite wall motion abnormalities. RIGHT VENTRICLE Normal right ventricular size and systolic function. LEFT ATRIUM The left atrial size is normal. RIGHT ATRIUM The right atrial size is normal. ATRIAL SEPTUM The interatrial septum not well visualized. AORTA The aortic root and proximal ascending aorta are normal in size on limited imaging. MITRAL VALVE Mild calcification of the anterior mitral valve leaflet. Trace mitral valve regurgitation. AORTIC VALVE Trileaflet aortic valve. No aortic valve stenosis or regurgitation. TRICUSPID VALVE Structurally normal tricuspid valve. No tricuspid valve stenosis or regurgitation. PULMONARY VALVE No pulmonary valve regurgitation or stenosis. VESSELS The inferior vena cava is normal in size. PERICARDIUM No pericardial effusion. Leno Varner MD (Electronically Signed) Final Date:15 September 2017 16:31
[2017-09-15] MEDS: ATORVASTATIN 80 MG TAB PO SCH (21:06)
[2017-09-15] MEDS: SENNOSIDES 8.6 MG TAB PO SCH (21:06)
[2017-09-16] VITALS (27 sets, daily range): BP systolic 124–157; BP diastolic 70–93; PULSE 70–104; RESP 18–20; TEMP 97.9–98.4; O2SAT 91–96
[2017-09-16] MEDS: ACETAMINOPHEN/HYDROcodone 325 MG/5 MG TAB PO PRN ×4 (01:20→21:15)
[2017-09-16] MEDS: RESP: ALBUTEROL 2.5 MG/IPRATROPIUM 0.5 MG NEB (SCH) NEB ×3 (04:51→13:15)
[2017-09-16 04:54] LABS: HEMATOCRIT 33.4 % (39.0-51.0); HEMOGLOBIN 11.1 GM/DL (13.0-17.0); MEAN CELL VOLUME 98.4 FL (80.0-100.0); MEAN CORPUSCULAR HEMOGLOBIN 32.7 PG (27.0-34.0); MEAN CORPUSCULAR HGB CONC 33.2 % (32.0-36.0); MEAN PLATELET VOLUME 7.9 FL (7.0-11.0); PLATELET COUNT 238 TH/MM3 (150-450); RED BLOOD COUNT 3.39 MIL/MM3 (4.50-5.90); RED CELL DISTRIBUTION WIDTH 14.6 % (11.6-17.2); WHITE BLOOD COUNT 8.8 TH/MM3 (4.0-11.0)
[2017-09-16 05:14] LABS: CALCIUM 8.1 MG/DL (8.5-10.1); CREATININE 0.77 MG/DL (0.60-1.30); MAGNESIUM 2.3 MG/DL (1.5-2.5)
[2017-09-16] MEDS: PANTOPRAZOLE SOD 40 MG DELAYED RELEASE TAB PO SCH (05:24)
[2017-09-16] MEDS: INSULIN ASPART SUPPLEMENTAL SCALE SQ SCH ×4 (08:00→21:00)
[2017-09-16] MEDS: MAGNESIUM HYDROXIDE SUSP 30 ML CUP PO SCH (08:20)
[2017-09-16] MEDS: POLYETHYLENE GLYCOL 17 GM PKG PO SCH (08:20)
[2017-09-16] MEDS: MULTIVITAMINS/MINERALS THERAPEUTIC TAB PO SCH (08:21)
[2017-09-16] MEDS: METOPROLOL TARTRATE 25 MG TAB PO SCH ×2 (08:21→21:14)
[2017-09-16] MEDS: CLOPIDOGREL 75 MG TAB PO SCH (08:21)
[2017-09-16] MEDS: AMIODARONE 200 MG TAB PO SCH ×2 (08:21→21:14)
[2017-09-16] MEDS: ASPIRIN 81 MG CHEW TAB PO SCH (08:21)
[2017-09-16] MEDS: DOCUSATE SODIUM 100 MG CAP PO SCH ×2 (08:21→21:00)
[2017-09-16] MEDS: SODIUM CHLORIDE 0.9% FLUSH 10 ML FLUSH IV FLUSH SCH ×2 (08:24→21:14)
--- NOTE | 2017-09-16 09:18 | RSPPFT ---
DATE OF PROCEDURE: 09/10/17 COMMENTS: Spirometry with normal flow rates and ratios. Post-bronchodilator study was not performed. IMPRESSION: 1. Essentially normal spirometry.
[2017-09-16] MEDS ORDERED: POTASSIUM CHLORIDE 20 MEQ CONTROLLED RELEASE TAB PO ONE (10:00)
[2017-09-16] MEDS ORDERED: METOPROLOL TARTRATE 25 MG TAB PO ONE (10:00)
[2017-09-16] MEDS ORDERED: FUROSEMIDE 40 MG/4 ML VIAL IV PUSH ONE (10:00)
--- NOTE | 2017-09-16 11:22 | HHI.PR ---
Subjective Remarks The patient complained of pain around the chest tube. He was wondering when that would be removed. He had no other acute complaints. Discussed with nursing. Objective Vitals Vital Signs Date Time Temp Pulse Resp B/P (MAP) Pulse Ox O2 Delivery O2 Flow Rate FiO2 09/16/17 10:00 86 09/16/17 09:00 101 09/16/17 08:00 101 09/16/17 07:54 96 Nasal Cannula 2.00 09/16/17 07:15 93 09/16/17 07:00 91 Nasal Cannula 2.00 09/16/17 07:00 97.9 104 20 157/93 (114) 91 09/16/17 06:10 70 09/16/17 05:20 87 09/16/17 04:08 84 09/16/17 03:20 98.3 85 19 133/83 (100) 95 09/16/17 03:20 Nasal Cannula 2.00 09/16/17 03:20 92 09/16/17 02:26 80 09/16/17 01:16 89 09/16/17 00:18 94 09/15/17 23:00 98.4 93 20 130/75 (93) 94 09/15/17 23:00 81 09/15/17 23:00 Nasal Cannula 3.00 09/15/17 22:52 80 09/15/17 21:30 87 09/15/17 20:38 97 Nasal Cannula 2.00 09/15/17 20:20 80 09/15/17 19:20 98.4 98 19 148/84 (105) 93 09/15/17 19:20 Nasal Cannula 3.00 09/15/17 19:20 100 09/15/17 18:00 96 09/15/17 17:00 101 09/15/17 16:00 78 09/15/17 15:00 98.3 93 16 135/68 (90) 92 09/15/17 15:00 92 Nasal Cannula 3.00 09/15/17 15:00 76 09/15/17 14:00 78 09/15/17 13:00 80 09/15/17 12:00 79 I/O 09/15/17 09/15/17 09/15/17 09/16/17 09/16/17 09/16/17 07:00 15:00 23:00 07:00 15:00 23:00 Intake Total 460 ml 960 ml 480 ml Output Total 400 ml 1150 ml 315 ml Balance 60 ml -190 ml 165 ml Intake Oral 360 ml 960 ml 480 ml IV Total 100 ml Output Urine Total 250 ml 950 ml 225 ml Chest Tube Drainage Total 150 ml 200 ml 90 ml # Bowel Movements 0 Result Diagram: 09/16/17 0426 09/16/17 0426 Imaging Last Impressions Chest X-Ray 09/14/17 0500 Signed Impressions: Service Date/Time: Thursday, September 14, 2017 04:13 - CONCLUSION: Stable chest with scattered parenchymal densities. Ramirez Lares MD Lower Extremity Ultrasound 09/11/17 0000 Signed Impressions: Service Date/Time: Monday, September 11, 2017 18:51 - CONCLUSION: Venous mapping as above. Ravinder Breaux MD FACR Carotid Artery Ultrasound 09/11/17 0000 Signed Impressions: Service Date/Time: Monday, September 11, 2017 19:19 - CONCLUSION: Negative for hemodynamically significant stenosis. Ravinder Breaux MD FACR CT Angiography 09/10/17 0000 Signed Impressions: Service Date/Time: September 16:08 - CONCLUSION: The study is negative for pulmonary embolism. Arie Gordillo MD Objective Remarks GENERAL: This is a well-nourished, well-developed patient, in no apparent distress. HEENT: NC, AT. CARDIOVASCULAR: Regular rate and regular rhythm without murmurs, gallops, or rubs. RESPIRATORY: Clear to auscultation. Breath sounds equal bilaterally. No wheezes , rales, or rhonchi. GASTROINTESTINAL: Abdomen soft, non-tender, nondistended. Normal, active bowel sounds. MUSCULOSKELETAL: Extremities without clubbing, cyanosis, or edema. Chest tubes in place. NEURO: Alert & Oriented x4 to person, place, time, situation. Moves all ext x4. PSYCH: mood and affect appropriate. Procedures 09/11/2017 PROCEDURE: Left heart catheterization, coronary angiogram, moderate sedation 15 minutes. PREPROCEDURE DIAGNOSES: Non-ST elevation myocardial infarction, coronary insufficiency. POSTPROCEDURE DIAGNOSES: Multivessel coronary artery disease, non-ST elevation myocardial infarction. MEDICATIONS: Versed 0.5 mg, fentanyl 25 mcg, heparin 3300 units., nitroglycerin 200 mcg, restarted heparin drip, started nitroglycerin drip at 5 mcg per minute. CONTRAST USED: 40 mL FLUOROSCOPY: 2.9 minutes. MODERATE SEDATION: 15 minutes. ESTIMATED BLOOD LOSS: 10 mL PROCEDURAL SUMMARY: Pavel Whitman is a pleasant 71-year-old male who presented to [facility] Emergency Room due to chest pain. He was found to have an elevated troponin and because of this, he was recommended cardiac catheterization. Risks, benefits and alternatives were explained to him and he consented as such. He was brought to the lab and prepped in the usual sterile fashion. The right radial artery was accessed using a modified Seldinger technique and placement of a 5/6 Amharic Slender sheath. This was easily aspirated and flushed. A JR4 was advanced over a J-wire to the ascending aorta and across the aortic valve for measurement of left ventricular pressure. This was pulled back across the aortic valve showing no significant gradient of aortic stenosis. JR4 was used for selective angiography of the right coronary artery system. This is exchanged out for a JL3.5, which was used for selective angiography of the left coronary artery system. JL3.5 was removed over a J wire. A radial band was placed over the arteriotomy site for hemostasis. The patient was started on a heparin and nitroglycerin drip. 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 FINDINGS: LEFT MAIN: Normal size vessel with adequate reflux and no significant disease. It trifurcates into an LAD, circumflex, and ramus. LEFT ANTERIOR DESCENDING: A small to moderate sized vessel with diffuse 70% disease throughout the proximal portion and a 90% stenosis in the mid portion. Distally, the vessel has no significant disease. It gives off 2 small diagonals. RAMUS: Overall small vessel with a 99% stenosis in the mid portion. After this, it bifurcates into an upper and lower branch with [place] 1 flow noted. LEFT CIRCUMFLEX: Small to moderate sized vessel with diffuse 50% disease throughout the mid portion. It gives off 1 obtuse marginal, which is overall small and tortuous. It appears that the second obtuse marginal is 100% occluded, but overall around 1 mm in size. RIGHT CORONARY ARTERY: Moderate to large size vessel with a 90% stenosis in the proximal to mid portion. Distally it gives off a PDA with a small PLB. LEFT VENTRICULAR END DIASTOLIC PRESSURE: 12. IMPRESSIONS: 1. Multivessel coronary artery disease. 2. Coronary insufficiency. 3. Non-ST elevation myocardial infarction. RECOMMENDATIONS: 1. Mr. Whitman presented with chest pain concerning for coronary insufficiency and was found to have multivessel disease and because of this he will be recommended coronary artery bypass grafting. 2. I discussed the case with Dr. Real who will see the patient in consultation. 3. We will check a 2-D echo to look at his overall left ventricular function, cardiac structure and possible valvulopathies. 4. He has since been started on a heparin drip and nitroglycerin drip. If at anytime he has chest pain unrelieved by medication, hemodynamically or electrically unstable, then consideration will be made for further support, along with earlier consideration of coronary artery bypass grafting. Thank you for allowing me to see Pavel Whitman. If there any questions, please do not hesitate to call. Medications and IVs Current Medications Medications (Trade) Dose Ordered Sig/Thang Route Start Time Stop Time Status Last Admin (Pill Splitter) 1 ea UNSCH PRN OTHER 09/10/17 21:45 (Lipitor) 80 mg HS PO 09/11/17 21:00 09/15/17 21:06 (NS Flush) 2 ml BID IV FLUSH 09/13/17 21:00 09/16/17 08:24 (NS Flush) 2 ml UNSCH PRN IV FLUSH 09/13/17 12:45 (Aspirin Chew) 81 mg DAILY PO 09/14/17 09:00 09/16/17 08:21 (Plavix) 75 mg DAILY PO 09/14/17 09:00 09/16/17 08:21 (Protonix) 40 mg DAILY@06 PO 09/14/17 06:00 09/16/17 05:24 (Cordarone) 200 mg Q12HR PO 09/13/17 21:00 09/16/17 08:21 (Tylenol) 650 mg Q4H PRN PO 09/13/17 12:45 ([place] 5-325 Mg) 1 tab Q3H PRN PO 09/13/17 12:45 09/15/17 09:46 (Zofran Inj) 4 mg Q6H PRN IV PUSH 09/13/17 12:45 (Duoneb Neb) 1 ampule Q2HR NEB PRN NEB 09/13/17 12:45 ([place] 5-325 Mg) 2 tab Q4H PRN PO 09/14/17 09:15 09/16/17 05:24 (Duoneb Neb) 1 ampule Q6HR WHILE AWAKE NEB NEB 09/14/17 14:00 09/16/17 13:59 09/16/17 07:53 (Colace) 100 mg BID PO 09/14/17 09:15 09/16/17 08:21 (Theragran M Tab) 1 tab DAILY PO 09/15/17 09:00 09/16/17 08:21 (Milk Of Magnesia Liq) 30 ml DAILY PO 09/15/17 09:00 09/16/17 08:20 (Dulcolax Supp) 10 mg UNSCH PRN RECTAL 09/14/17 09:15 (Miralax) 17 gm DAILY PO 09/15/17 09:00 09/16/17 08:20 (Senokot) 8.6 mg HS PO 09/14/17 21:00 09/15/17 21:06 (Fleets Enema (Adult)) 118 ml UNSCH PRN RECTAL 09/14/17 09:15 (D50w (Vial) Inj) 50 ml UNSCH PRN IV PUSH 09/14/17 09:15 (Glucagon Inj) 1 mg UNSCH PRN OTHER 09/14/17 09:15 (NovoLOG SUPPLEMENTAL SCALE) 1 ACHS SLIDING SCALE SQ 09/16/17 08:00 (Lopressor) 25 mg BID PO 09/16/17 21:00 (Prinivil) 10 mg DAILY PO 09/16/17 10:00 A/P Problem List: (1) Multi-vessel coronary artery stenosis ICD Code: I25.10 - Atherosclerotic heart disease of [place] coronary artery without angina pectoris (2) NSTEMI (non-ST elevated myocardial infarction) ICD Code: I21.4 - Non-ST elevation (NSTEMI) myocardial infarction (3) Carcinoid tumor ICD Code: D3A.00 - Benign carcinoid tumor of unspecified site (4) Elevated troponin ICD Code: R74.8 - Abnormal levels of other serum enzymes Status: Acute (5) Chest pain ICD Code: R07.9 - Chest pain, unspecified Status: Acute Assessment and Plan NSTEMI EKG significant for sinus bradycardia without ST segment elevations or depressions. Troponin trended up to 1.7. He was started on a heparin gtt and cardiology was consulted. S/p cardiac cath with multivessel disease; CT surgery consulted- s/p CABG. - continue aspirin, Plavix, BB, Amiodarone and statin. - chest tubes per CTS. Still draining. - rehab efforts. - oxygen and nebs as needed. Hypertension Slightly elevated 09/16. - continue current regimen. 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 - Follows as outpatient. Anemia S/t surgery. - follow CBC. DVT prophylaxis: Per surgery Discharge Planning Per CTS Problem Qualifiers (1) Chest pain: Qualified Codes: R07.9 - Chest pain, unspecified Kristofer Torres DO Sep 16, 2017 11:22
[2017-09-16] MEDS: LISINOPRIL 10 MG TAB PO SCH (11:27)
--- NOTE | 2017-09-16 16:48 | PD.CAR.PN ---
CVT Progress Note Subjective/Hospital Course: 1-year-old male visiting from the [place] area, on vacation with his family. He presented to the emergency room with substernal chest pain, /, associated with diaphoresis, positive for troponin, ruled in for a non-STEMI. Had been at [place] the day before, thought it was indigestion, had that on Thursday night and on the EMS was called. He underwent cardiac catheterization today by Dr. Reese showing proximal LAD 70%, mid-distal LAD 90%, diagonal 10%, the circ was 60%, the RCA 95% and the ramus 99%. We were consulted to evaluate for coronary artery bypass grafting. Echocardiogram is pending for ejection fraction. 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 surgery:. 09/13 Emergent Off-pump Coronary Artery Bypass Grafting x 3 with Left Internal Mammary Artery (DAWSON) to Left Anterior Descending (LAD), reverse saphenous vein graft to the Ramus Marginalis (RM), reverse saphenous vein graft to the distal Right Coronary Artery (RCA), Ultrasound Guided Dissection of the LAD, Left Leg Endoscopic Vein [place] extubated after surgery crystalloid 2500cc, cell saver 250cc 09/14 on nasal cannula chest tube drained 205cc/ 12 hrs start BB this pm if BP allows await 2edcho for EF / ok to transfer to stepdown 09/15 pt up in chair, on nasal cannula remains on 02 gentle diuresis chest tube drained 150cc/ 12 hrs / will leave in for now await echo for EF 09/16 chest tube dc without difficulty wean off 02 as tolerated OOB , no BM since surgery remains in NSR Objective: GENERAL: A&O x 3 SKIN: Warm and dry. prevena dressing ot chest , inciison intact to left leg HEAD: Normocephalic. EYES: No scleral icterus. No injection or drainage. NECK: Supple, trachea midline. No JVD or lymphadenopathy. CARDIOVASCULAR: Regular rate and rhythm without murmurs, gallops, or rubs. RESPIRATORY: Breath sounds equal bilaterally. No accessory muscle use. diminished in bases, few crackles GASTROINTESTINAL: Abdomen soft, non-tender, nondistended. MUSCULOSKELETAL: No cyanosis, or edema. BACK: Nontender without obvious deformity. No CVA tenderness. Vital Signs Date Time Temp Pulse Resp B/P (MAP) Pulse Ox O2 Delivery O2 Flow Rate FiO2 09/16/17 16:00 80 09/16/17 15:00 84 09/16/17 15:00 94 Nasal Cannula 1.00 09/16/17 15:00 97.9 93 20 127/72 (90) 94 09/16/17 14:00 87 09/16/17 13:00 100 09/16/17 12:25 19 09/16/17 12:00 100 09/16/17 11:00 98.2 92 19 124/74 (91) 95 09/16/17 11:00 82 09/16/17 11:00 95 Nasal Cannula 2.00 09/16/17 10:00 86 09/16/17 09:00 101 09/16/17 08:00 101 09/16/17 07:54 96 Nasal Cannula 2.00 09/16/17 07:15 93 09/16/17 07:00 91 Nasal Cannula 2.00 09/16/17 07:00 97.9 104 20 157/93 (114) 91 09/16/17 06:10 70 09/16/17 05:20 87 09/16/17 04:08 84 09/16/17 03:20 98.3 85 19 133/83 (100) 95 09/16/17 03:20 Nasal Cannula 2.00 09/16/17 03:20 92 09/16/17 02:26 80 09/16/17 01:16 89 09/16/17 00:18 94 09/15/17 23:00 98.4 93 20 130/75 (93) 94 09/15/17 23:00 81 09/15/17 23:00 Nasal Cannula 3.00 09/15/17 22:52 80 09/15/17 21:30 87 09/15/17 20:38 97 Nasal Cannula 2.00 09/15/17 20:20 80 09/15/17 19:20 98.4 98 19 148/84 (105) 93 09/15/17 19:20 Nasal Cannula 3.00 09/15/17 19:20 100 09/15/17 18:00 96 09/15/17 17:00 101 Labs: Result Diagram: 09/16/1742509/16/17425 Telemetry: NSR (1) NSTEMI (non-ST elevated myocardial infarction) (2) Multi-vessel coronary artery stenosis (3) Chest pain (4) Carcinoid tumor (5) S/P CABG x 3 Plan: on ASA, statin , BB , plavix OOB, ambulate pulm toileting pain control chest tube dc without difficulty eval for discharge in am CM to eval for HHC at discharge Problem Qualifiers (1) Chest pain: Qualified Codes: R07.9 - Chest pain, unspecified Consuelo Staley Sep 16, 2017 16:48
[2017-09-16] MEDS: SENNOSIDES 8.6 MG TAB PO SCH (21:00)
[2017-09-16] MEDS: ATORVASTATIN 80 MG TAB PO SCH (21:14)
--- NOTE | 2017-09-16 23:11 | PD.CARD.PN ---
Subjective Subjective Remarks Patient was seen earlier today, late entry note Doing well overall, just feels weak today Chest tubes out Up and ambulating Objective Medications Current Medications Medications (Trade) Dose Ordered Sig/Thang Route Start Time Stop Time Status Last Admin (Pill Splitter) 1 ea UNSCH PRN OTHER 09/10/17 21:45 (Lipitor) 80 mg HS PO 09/11/17 21:00 09/16/17 21:14 (NS Flush) 2 ml BID IV FLUSH 09/13/17 21:00 09/16/17 21:14 (NS Flush) 2 ml UNSCH PRN IV FLUSH 09/13/17 12:45 (Aspirin Chew) 81 mg DAILY PO 09/14/17 09:00 09/16/17 08:21 (Plavix) 75 mg DAILY PO 09/14/17 09:00 09/16/17 08:21 (Protonix) 40 mg DAILY@06 PO 09/14/17 06:00 09/16/17 05:24 (Cordarone) 200 mg Q12HR PO 09/13/17 21:00 09/16/17 21:14 (Tylenol) 650 mg Q4H PRN PO 09/13/17 12:45 ([place] 5-325 Mg) 1 tab Q3H PRN PO 09/13/17 12:45 09/16/17 21:15 (Zofran Inj) 4 mg Q6H PRN IV PUSH 09/13/17 12:45 (Duoneb Neb) 1 ampule Q2HR NEB PRN NEB 09/13/17 12:45 ([place] 5-325 Mg) 2 tab Q4H PRN PO 09/14/17 09:15 09/16/17 05:24 (Colace) 100 mg BID PO 09/14/17 09:15 09/16/17 08:21 (Theragran M Tab) 1 tab DAILY PO 09/15/17 09:00 09/16/17 08:21 (Milk Of Magnesia Liq) 30 ml DAILY PO 09/15/17 09:00 09/16/17 08:20 (Dulcolax Supp) 10 mg UNSCH PRN RECTAL 09/14/17 09:15 (Miralax) 17 gm DAILY PO 09/15/17 09:00 09/16/17 08:20 (Senokot) 8.6 mg HS PO 09/14/17 21:00 09/15/17 21:06 (Fleets Enema (Adult)) 118 ml UNSCH PRN RECTAL 09/14/17 09:15 (D50w (Vial) Inj) 50 ml UNSCH PRN IV PUSH 09/14/17 09:15 (Glucagon Inj) 1 mg UNSCH PRN OTHER 09/14/17 09:15 (NovoLOG SUPPLEMENTAL SCALE) 1 ACHS SLIDING SCALE SQ 09/16/17 08:00 (Lopressor) 25 mg BID PO 09/16/17 21:00 09/16/17 21:14 (Prinivil) 10 mg DAILY PO 09/16/17 10:00 09/16/17 11:27 Vital Signs / I&O Vital Signs Date Time Temp Pulse Resp B/P (MAP) Pulse Ox O2 Delivery O2 Flow Rate FiO2 09/16/17 21:26 95 Nasal Cannula 1.00 09/16/17 18:00 103 09/16/17 17:00 96 09/16/17 16:00 80 09/16/17 15:00 84 09/16/17 15:00 94 Nasal Cannula 1.00 09/16/17 15:00 97.9 93 20 127/72 (90) 94 09/16/17 14:00 87 09/16/17 13:00 100 09/16/17 12:25 19 09/16/17 12:00 100 09/16/17 11:00 98.2 92 19 124/74 (91) 95 09/16/17 11:00 82 09/16/17 11:00 95 Nasal Cannula 2.00 09/16/17 10:00 86 09/16/17 09:00 101 09/16/17 08:00 101 09/16/17 07:54 96 Nasal Cannula 2.00 09/16/17 07:15 93 09/16/17 07:00 91 Nasal Cannula 2.00 09/16/17 07:00 97.9 104 20 157/93 (114) 91 09/16/17 06:10 70 09/16/17 05:20 87 09/16/17 04:08 84 09/16/17 03:20 98.3 85 19 133/83 (100) 95 09/16/17 03:20 Nasal Cannula 2.00 09/16/17 03:20 92 09/16/17 02:26 80 09/16/17 01:16 89 09/16/17 00:18 94 I/O 09/16/17 09/16/17 09/16/17 09/17/17 09/17/17 09/17/17 07:00 15:00 23:00 07:00 15:00 23:00 Intake Total 480 ml 340 ml Output Total 315 ml 1600 ml Balance 165 ml -1260 ml Intake Oral 480 ml 340 ml Output Urine Total 225 ml 1600 ml Chest Tube Drainage Total 90 ml # Bowel Movements 3 Physical Exam GENERAL: NAD, AAOx3 SKIN: Warm and dry. HEAD: Atraumatic. Normocephalic. EYES: Pupils equal and round. No scleral icterus. No injection or drainage. ENT: No nasal bleeding or discharge. Mucous membranes pink and moist. NECK: Trachea midline. No JVD. CARDIOVASCULAR: Regular rate and rhythm. RESPIRATORY: No accessory muscle use. Clear to auscultation. Breath sounds equal bilaterally. GASTROINTESTINAL: Abdomen soft, non-tender, nondistended. Hepatic and splenic margins not palpable. MUSCULOSKELETAL: Extremities without clubbing, cyanosis, or edema. No obvious deformities. NEUROLOGICAL: No focal deficits Laboratory Laboratory Tests Test 09/16/17 04:26 White Blood Count 8.8 TH/MM3 Red Blood Count 3.39 MIL/MM3 Hemoglobin 11.1 GM/DL Hematocrit 33.4 % Mean Corpuscular Volume 98.4 FL Mean Corpuscular Hemoglobin 32.7 PG Mean Corpuscular Hemoglobin Concent 33.2 % Red Cell Distribution Width 14.6 % Platelet Count 238 TH/MM3 Mean Platelet Volume 7.9 FL Blood Urea Nitrogen 19 MG/DL Creatinine 0.77 MG/DL Random Glucose 97 MG/DL Calcium Level 8.1 MG/DL Magnesium Level 2.3 MG/DL Sodium Level 133 MEQ/L Potassium Level 4.1 MEQ/L Chloride Level 101 MEQ/L Carbon Dioxide Level 22.0 MEQ/L Anion Gap 10 MEQ/L Estimat Glomerular Filtration Rate 100 ML/MIN Assessment and Plan Problem List: (1) NSTEMI (non-ST elevated myocardial infarction) ICD Codes: I21.4 - Non-ST elevation (NSTEMI) myocardial infarction (2) Multi-vessel coronary artery stenosis ICD Codes: I25.10 - Atherosclerotic heart disease of [place] coronary artery without angina pectoris (3) Chest pain ICD Codes: R07.9 - Chest pain, unspecified Status: Acute (4) Carcinoid tumor ICD Codes: D3A.00 - Benign carcinoid tumor of unspecified site (5) S/P CABG x 3 ICD Codes: Z95.1 - Presence of aortocoronary bypass graft Assessment and Plan 1) NSTEMI/MVCAD s/p CABGx3 POD #3 DAWSON to LAD SVG to Ramus SVG to RCA 2) ASA/Plavix/Amio/Statin 3) Con't to ambulate Problem Qualifiers (1) Chest pain: Qualified Codes: R07.9 - Chest pain, unspecified Joseph Reese DO Sep 16, 2017 23:11
[2017-09-16] MEDS: RESP: ALBUTEROL 2.5 MG/IPRATROPIUM 0.5 MG NEB (PRN) NEB (23:18)
[2017-09-17] VITALS (15 sets, daily range): BP systolic 118–141; BP diastolic 60–63; PULSE 75–105; RESP 18–22; TEMP 98–98.3; O2SAT 92–97
[2017-09-17] MEDS: ACETAMINOPHEN/HYDROcodone 325 MG/5 MG TAB PO PRN ×2 (02:35→08:51)
--- NOTE | 2017-09-17 04:55 | RADRPT ---
EXAM DATE/TIME: 09/17/2017 03:44 [facility] COMPARISON: CHEST SINGLE AP, September 14, 2017, 4:13. INDICATIONS : Shortness of breath, possible pulmonary disease. MEDICAL HISTORY : Hypertension. Hiatal hernia. Carcinoma, gastric. SURGICAL HISTORY : CABG. Hernia repair Hip arthroplasty ENCOUNTER: Subsequent ACUITY: 1 week PAIN SCORE: Non-responsive. LOCATION: Bilateral chest FINDINGS: A single view of the chest demonstrates a minimal bibasilar atelectasis. Cardiomegaly and previous CA BG. Left sided and mediastinal chest tubes have been removed. No pneumothorax The cardiomediastinal c ontours are unremarkable. Osseous structures are intact. CONCLUSION: Status post CABG and minimal bibasilar atelectasis. No pneumothorax. Ramirez Lares MD on September 17, 2017 at 4:53 Board Certified Radiologist. This report was verified electronically.
[2017-09-17] MEDS: PANTOPRAZOLE SOD 40 MG DELAYED RELEASE TAB PO SCH (06:00)
[2017-09-17 06:34] LABS: BICARBONATE 28.5 MEQ/L (21.0-32.0); CALCIUM 8.2 MG/DL (8.5-10.1); CREATININE 0.69 MG/DL (0.60-1.30); MAGNESIUM 2.6 MG/DL (1.5-2.5)
[2017-09-17] MEDS: INSULIN ASPART SUPPLEMENTAL SCALE SQ SCH ×2 (08:00→12:00)
[2017-09-17] MEDS: MULTIVITAMINS/MINERALS THERAPEUTIC TAB PO SCH (08:50)
[2017-09-17] MEDS: CLOPIDOGREL 75 MG TAB PO SCH (08:50)
[2017-09-17] MEDS: ASPIRIN 81 MG CHEW TAB PO SCH (08:50)
[2017-09-17] MEDS: POLYETHYLENE GLYCOL 17 GM PKG PO SCH (08:51)
[2017-09-17] MEDS: MAGNESIUM HYDROXIDE SUSP 30 ML CUP PO SCH (08:51)
[2017-09-17] MEDS: AMIODARONE 200 MG TAB PO SCH (08:51)
[2017-09-17] MEDS: METOPROLOL TARTRATE 25 MG TAB PO SCH (08:51)
[2017-09-17] MEDS: DOCUSATE SODIUM 100 MG CAP PO SCH (08:51)
[2017-09-17] MEDS: LISINOPRIL 10 MG TAB PO SCH (08:51)
[2017-09-17] MEDS: SODIUM CHLORIDE 0.9% FLUSH 10 ML FLUSH IV FLUSH SCH (08:54)
[2017-09-17] MEDS ORDERED: POTASSIUM CHLORIDE 20 MEQ CONTROLLED RELEASE TAB PO ONE (09:45)
[2017-09-17] MEDS ORDERED: COMMODE 3-IN-11 MIS (10:16)
[2017-09-17] MEDS ORDERED: THERM PO (10:16)
[2017-09-17] MEDS ORDERED: LISI10TA3 PO (10:16)
[2017-09-17] MEDS ORDERED: DOCU1CAP39 PO (10:16)
[2017-09-17] MEDS ORDERED: AMIO200T PO (10:16)
[2017-09-17] MEDS ORDERED: PLAV75TA29 PO (10:16)
[2017-09-17] MEDS ORDERED: WALKER WHEELS/F1 MIS (10:16)
[2017-09-17] MEDS ORDERED: TRAM50TA PO (10:20)
--- NOTE | 2017-09-17 10:27 | PD.CAR.PN ---
CVT Progress Note Subjective/Hospital Course: 1-year-old male visiting from the [place] area, on vacation with his family. He presented to the emergency room with substernal chest pain, /, associated with diaphoresis, positive for troponin, ruled in for a non-STEMI. Had been at [facility] the day before, thought it was indigestion, had that on Thursday night and on the EMS was called. He underwent cardiac catheterization today by Dr. Reese showing proximal LAD 70%, mid-distal LAD 90%, diagonal 10%, the circ was 60%, the RCA 95% and the ramus 99%. We were consulted to evaluate for coronary artery bypass grafting. Echocardiogram is pending for ejection fraction. 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 surgery:. 09/13 Emergent Off-pump Coronary Artery Bypass Grafting x 3 with Left Internal Mammary Artery (DAWSON) to Left Anterior Descending (LAD), reverse saphenous vein graft to the Ramus Marginalis (RM), reverse saphenous vein graft to the distal Right Coronary Artery (RCA), Ultrasound Guided Dissection of the LAD, Left Leg Endoscopic Vein [place] extubated after surgery crystalloid 2500cc, cell saver 250cc 09/14 on nasal cannula chest tube drained 205cc/ 12 hrs start BB this pm if BP allows await 2edcho for EF / ok to transfer to stepdown 09/15 pt up in chair, on nasal cannula remains on 02 gentle diuresis chest tube drained 150cc/ 12 hrs / will leave in for now await echo for EF 09/16 chest tube dc without difficulty wean off 02 as tolerated OOB , no BM since surgery remains in NSR 09/17/17 now on room air stable for discharge, stop norco add ultram at discharge on ASA, statin , BB amiodarone for 2 weeks dc with walker and #:1 commode will see in office next week Objective: GENERAL: A&O x 3 SKIN: Warm and dry. prevena dressing to chest , incision left leg intact HEAD: Normocephalic. EYES: No scleral icterus. No injection or drainage. NECK: Supple, trachea midline. No JVD or lymphadenopathy. CARDIOVASCULAR: Regular rate and rhythm without murmurs, gallops, or rubs. RESPIRATORY: Breath sounds equal bilaterally. No accessory muscle use. GASTROINTESTINAL: Abdomen soft, non-tender, nondistended. MUSCULOSKELETAL: No cyanosis, or edema. BACK: Nontender without obvious deformity. No CVA tenderness. Vital Signs Date Time Temp Pulse Resp B/P (MAP) Pulse Ox O2 Delivery O2 Flow Rate FiO2 09/17/17 10:16 17 09/17/17 10:00 97 09/17/17 09:00 105 09/17/17 08:19 97 21 09/17/17 08:00 94 09/17/17 07:15 98.3 84 19 136/63 (87) 93 09/17/17 07:15 93 Room Air 09/17/17 07:00 75 09/17/17 06:00 80 09/17/17 05:00 82 09/17/17 04:00 98.0 80 18 119/60 (79) 93 09/17/17 04:00 93 Room Air 09/17/17 04:00 80 09/17/17 03:35 18 09/17/17 03:00 82 09/17/17 02:00 92 09/17/17 02:00 84 09/17/17 01:00 82 09/17/17 00:00 96 09/17/17 00:00 98.2 96 22 141/63 (89) 92 09/17/17 00:00 92 Room Air 09/16/17 23:00 90 09/16/17 22:00 98 09/16/17 22:00 93 Room Air 09/16/17 21:26 95 Nasal Cannula 1.00 09/16/17 21:00 96 09/16/17 20:00 98.4 102 18 130/70 (90) 96 09/16/17 20:00 96 Nasal Cannula 1.00 09/16/17 20:00 102 09/16/17 19:00 104 09/16/17 18:00 103 09/16/17 17:00 96 09/16/17 16:00 80 09/16/17 15:00 84 09/16/17 15:00 94 Nasal Cannula 1.00 09/16/17 15:00 97.9 93 20 127/72 (90) 94 09/16/17 14:00 87 09/16/17 13:00 100 09/16/17 12:00 100 09/16/17 11:00 98.2 92 19 124/74 (91) 95 09/16/17 11:00 82 09/16/17 11:00 95 Nasal Cannula 2.00 Labs: Laboratory Tests Test 09/17/17 05:10 Blood Urea Nitrogen 19 MG/DL (7-18) Creatinine 0.69 MG/DL (0.60-1.30) Random Glucose 96 MG/DL (74-106) Calcium Level 8.2 MG/DL (8.5-10.1) Magnesium Level 2.6 MG/DL (1.5-2.5) Sodium Level 137 MEQ/L (136-145) Potassium Level 3.6 MEQ/L (3.5-5.1) Chloride Level 101 MEQ/L (98-107) Carbon Dioxide Level 28.5 MEQ/L (21.0-32.0) Anion Gap 8 MEQ/L (5-15) Estimat Glomerular Filtration Rate 113 ML/MIN (>89) Result Diagram: 09/16/17 0426 09/17/17 0510 (1) NSTEMI (non-ST elevated myocardial infarction) (2) Multi-vessel coronary artery stenosis (3) Chest pain (4) Carcinoid tumor (5) S/P CABG x 3 Plan: on ASA, statin , BB , plavix OOB, ambulate pulm toileting pain control post chest tube removal Xray stable eval for discharge in am ok to discharge today Problem Qualifiers (1) Chest pain: Qualified Codes: R07.9 - Chest pain, unspecified Consuelo Staley Sep 17, 2017 10:27
[2017-09-17] MEDS: RESP: ALBUTEROL 2.5 MG/IPRATROPIUM 0.5 MG NEB (PRN) NEB (10:28)
--- NOTE | 2017-09-17 10:34 | HHI.DCPOC ---
Discharge Care Plan Diagnosis: (1) Multi-vessel coronary artery stenosis (2) NSTEMI (non-ST elevated myocardial infarction) (3) S/P CABG x 3 (4) Chest pain Goals to Promote Your Health * To prevent worsening of your condition and complications * To maintain your health at the optimal level Directions to Meet Your Goals Take your medications as prescribed Follow your dietary instruction Follow activity as directed Keep your appointments as scheduled Take your immunizations and boosters as scheduled If your symptoms worsen call your PCP, if no PCP go to Urgent Care Center or Emergency Room Smoking is Dangerous to Your Health. Avoid second hand smoke Call the 24-hour hour crisis hotline for domestic abuse at Kristofer Torres DO Sep 17, 2017 10:34
--- NOTE | 2017-09-17 10:35 | HHI.DS ---
Discharge Summary Admission Date Sep 10, 2017 at 16:42 Discharge Date: Sep 17, 2017 Admitting Diagnosis acute chest pain, positive troponin (1) Multi-vessel coronary artery stenosis ICD Code: I25.10 - Atherosclerotic heart disease of [place] coronary artery without angina pectoris Diagnosis: Principal (2) NSTEMI (non-ST elevated myocardial infarction) ICD Code: I21.4 - Non-ST elevation (NSTEMI) myocardial infarction (3) Carcinoid tumor ICD Code: D3A.00 - Benign carcinoid tumor of unspecified site (4) Elevated troponin ICD Code: R74.8 - Abnormal levels of other serum enzymes Status: Acute (5) Chest pain ICD Code: R07.9 - Chest pain, unspecified Status: Acute Procedures 09/11/2017 PROCEDURE: Left heart catheterization, coronary angiogram, moderate sedation 15 minutes. PREPROCEDURE DIAGNOSES: Non-ST elevation myocardial infarction, coronary insufficiency. POSTPROCEDURE DIAGNOSES: Multivessel coronary artery disease, non-ST elevation myocardial infarction. MEDICATIONS: Versed 0.5 mg, fentanyl 25 mcg, heparin 3300 units., nitroglycerin 200 mcg, restarted heparin drip, started nitroglycerin drip at 5 mcg per minute. CONTRAST USED: 40 mL FLUOROSCOPY: 2.9 minutes. MODERATE SEDATION: 15 minutes. ESTIMATED BLOOD LOSS: 10 mL PROCEDURAL SUMMARY: Pavel Whitman is a pleasant 71-year-old male who presented to [facility] Emergency Room due to chest pain. He was found to have an elevated troponin and because of this, he was recommended cardiac catheterization. Risks, benefits and alternatives were explained to him and he consented as such. He was brought to the lab and prepped in the usual sterile fashion. The right radial artery was accessed using a modified Seldinger technique and placement of a 5/6 [place] sheath. This was easily aspirated and flushed. A JR4 was advanced over a J-wire to the ascending aorta and across the aortic valve for measurement of left ventricular pressure. This was pulled back across the aortic valve showing no significant gradient of aortic stenosis. JR4 was used for selective angiography of the right coronary artery system. This is exchanged out for a JL3.5, which was used for selective angiography of the left coronary artery system. JL3.5 was removed over a J wire. A radial band was placed over the arteriotomy site for hemostasis. The patient was started on a heparin and nitroglycerin drip. He left the medical lab assistant cardiovascularly stable. FINDINGS: LEFT MAIN: Normal size vessel with adequate reflux and no significant disease. It trifurcates into an LAD, circumflex, and ramus. LEFT ANTERIOR DESCENDING: A small to moderate sized vessel with diffuse 70% disease throughout the proximal portion and a 90% stenosis in the mid portion. Distally, the vessel has no significant disease. It gives off 2 small diagonals. RAMUS: Overall small vessel with a 99% stenosis in the mid portion. After this, it bifurcates into an upper and lower branch with MASON 1 flow noted. LEFT CIRCUMFLEX: Small to moderate sized vessel with diffuse 50% disease throughout the mid portion. It gives off 1 obtuse marginal, which is overall small and tortuous. It appears that the second obtuse marginal is 100% occluded, but overall around 1 mm in size. RIGHT CORONARY ARTERY: Moderate to large size vessel with a 90% stenosis in the proximal to mid portion. Distally it gives off a PDA with a small PLB. LEFT VENTRICULAR END DIASTOLIC PRESSURE: 12. IMPRESSIONS: 1. Multivessel coronary artery disease. 2. Coronary insufficiency. 3. Non-ST elevation myocardial infarction. RECOMMENDATIONS: 1. Mr. Whitman presented with chest pain concerning for coronary insufficiency and was found to have multivessel disease and because of this he will be recommended coronary artery bypass grafting. 2. I discussed the case with Dr. Real who will see the patient in consultation. 3. We will check a 2-D echo to look at his overall left ventricular function, cardiac structure and possible valvulopathies. 4. He has since been started on a heparin drip and nitroglycerin drip. If at anytime he has chest pain unrelieved by medication, hemodynamically or electrically unstable, then consideration will be made for further support, along with earlier consideration of coronary artery bypass grafting. Thank you for allowing me to see Pavel Whitman. If there any questions, please do not hesitate to call. Brief History - From Admission 71-year-old male with past medical history significant for carcinoid tumor status post resection, hypertension, hyperlipidemia and GERD presents to the emergency department with evaluation of chest pain. The patient reports that the chest pain started last night. Describes it as substernal and states that it radiates up his bilateral neck. He endorses an episode of diaphoresis around 10 AM. Denies increased shortness of breath. No abdominal pain. No nausea/vomiting/diarrhea. No weakness or lateralizing signs/symptoms. CBC/BMP: 09/16/17 0426 09/17/17 0510 Significant Findings Laboratory Tests Test 09/15/17 07:14 09/16/17 04:26 09/17/17 05:10 Red Blood Count 3.08 MIL/MM3 (4.50-5.90) 3.39 MIL/MM3 (4.50-5.90) Hemoglobin 10.3 GM/DL (13.0-17.0) 11.1 GM/DL (13.0-17.0) Hematocrit 29.9 % (39.0-51.0) 33.4 % (39.0-51.0) Neutrophils (%) (Auto) 79.6 % (16.0-70.0) Lymphocytes (%) (Auto) 5.2 % (9.0-44.0) Monocytes (%) (Auto) 11.7 % (0.0-8.0) Lymphocytes # (Auto) 0.5 TH/MM3 (1.0-4.8) Monocytes # (Auto) 1.0 TH/MM3 (0-0.9) Random Glucose 108 MG/DL (74-106) Calcium Level 8.0 MG/DL (8.5-10.1) 8.1 MG/DL (8.5-10.1) 8.2 MG/DL (8.5-10.1) Sodium Level 134 MEQ/L (136-145) 133 MEQ/L (136-145) Blood Urea Nitrogen 19 MG/DL (7-18) 19 MG/DL (7-18) Magnesium Level 2.6 MG/DL (1.5-2.5) PE at Discharge GENERAL: This is a well-nourished, well-developed patient, in no apparent distress. HEENT: NC, AT. CARDIOVASCULAR: Regular rate and regular rhythm without murmurs, gallops, or rubs. RESPIRATORY: Clear to auscultation. Breath sounds equal bilaterally. No wheezes , rales, or rhonchi. GASTROINTESTINAL: Abdomen soft, non-tender, nondistended. Normal, active bowel sounds. MUSCULOSKELETAL: Extremities without clubbing, cyanosis, or edema. Chest tubes in place. NEURO: Alert & Oriented x4 to person, place, time, situation. Moves all ext x4. PSYCH: mood and affect appropriate. Pt update on day of discharge The patient was resting comfortably. His family was at the bedside and their questions were answered. The patient felt better with the removal of the chest tube. He was a little wheezy and requested a breathing treatment. Discussed with nursing. Hospital Course NSTEMI EKG was significant for sinus bradycardia without ST segment elevations or depressions. Troponin trended up to 1.7. He was started on a heparin gtt and cardiology was consulted. S/p cardiac cath which revealed multivessel disease. CT surgery was consulted and the pt is s/p CABG. He was continued on a cardiac regimen including aspirin, Plavix, BB, Amiodarone and statin. He received pain control with a bowel regimen. Chest tubes were discontinued per CTS. The pt worked with physical therapy. He received oxygen and nebs as needed. He will follow up with CTS as an outpt. History of carcinoid tumor Not active this hospitalization. He will follow up as an outpatient. Anemia CBC remained stable following surgery. Constipation The pt's constipation resolved with an aggressive bowel regimen. Pt Condition on Discharge: Stable Discharge Disposition: Disch w/ Home Health Serv Discharge Time: > 30 minutes Discharge Instructions DIET: Follow Instructions for: Heart Healthy Diet Activities you can perform: Weight Bearing as [place] Follow up Referrals: Cardiology - [address] Tahir Ayala [address] [address] PCP Follow-up - [address] Steve Dacosta [address] [place] [address] Surgical - 2 Weeks with Roger Real MD New Medications: Commode 3-in-1 (Commode 3-in-1) 1 Mis Mis EA .XX DIRECTED, #1 0 Refills Tramadol (Tramadol) 50 Mg Tab 50 MG PO Q6H PRN for PAIN, #40 TAB 0 Refills Walker with Front Wheels (Walker with Front Wheels) 1 Mis Mis EA .XX DIRECTED, #1 0 Refills Amiodarone (Amiodarone) 200 Mg Tab 200 MG PO Q12HR for heart rhythm, #28 TAB 0 Refills Clopidogrel (Plavix) 75 Mg Tab 75 MG PO DAILY for Blood Clot Prevention, #30 TAB 2 Refills Docusate Sodium (Dok) 100 Mg Cap 100 MG PO BID for Constipation, #60 CAP 0 Refills Lisinopril (Lisinopril) 10 Mg Tab 10 MG PO DAILY for Blood Pressure Management, #30 TAB 2 Refills Multiple Vitamins W/ Minerals (Thera M Plus) 1 Tab 1 TAB PO DAILY for multi vitamin, #30 TAB 2 Refills Continued Medications: Aspirin (Aspirin Low Dose) 81 Mg Chew 81 MG CHEW DAILY, TAB 0 Refills Atorvastatin (Atorvastatin) 10 Mg Tab 10 MG PO HS for Cholesterol Management, #30 TAB 0 Refills Bisoprolol-Hydrochlorothiazide (Bisoprolol-Hydrochlorothiazide) 10-6.25 Mg Tab 1 TAB PO DAILY for Blood Pressure Management, #30 TAB [address] (Diclofen[address] Sodium DR) 75 Mg Tabdr 75 MG PO DAILY, #30 TAB 0 Refills Glucosamine (Glucosamine) 1,500 Mg Tab 1500 MG PO DAILY for Herbal Supplements, TAB 0 Refills Kristofer Torres DO Sep 17, 2017 10:35
--- NOTE | 2017-09-17 22:22 | PD.CARD.PN ---
Subjective Subjective Remarks Patient was seen earlier today, late entry note Doing well overall, feels better today Up and ambulating Objective Vital Signs / I&O Vital Signs Date Time Temp Pulse Resp B/P (MAP) Pulse Ox O2 Delivery O2 Flow Rate FiO2 09/17/17 12:00 96 09/17/17 11:00 98.1 92 20 118/60 (79) 93 09/17/17 11:00 87 09/17/17 11:00 93 Room Air 09/17/17 10:16 17 09/17/17 10:00 97 09/17/17 09:00 105 09/17/17 08:19 97 21 09/17/17 08:00 94 09/17/17 07:15 98.3 84 19 136/63 (87) 93 09/17/17 07:15 93 Room Air 09/17/17 07:00 75 09/17/17 06:00 80 09/17/17 05:00 82 09/17/17 04:00 98.0 80 18 119/60 (79) 93 09/17/17 04:00 93 Room Air 09/17/17 04:00 80 09/17/17 03:35 18 09/17/17 03:00 82 09/17/17 02:00 92 09/17/17 02:00 84 09/17/17 01:00 82 09/17/17 00:00 96 09/17/17 00:00 98.2 96 22 141/63 (89) 92 09/17/17 00:00 92 Room Air 09/16/17 23:00 90 I/O 09/16/17 09/16/17 09/16/17 09/17/17 09/17/17 09/17/17 07:00 15:00 23:00 07:00 15:00 23:00 Intake Total 480 ml 340 ml 580 ml Output Total 315 ml 1600 ml 250 ml Balance 165 ml -1260 ml 330 ml Intake Oral 480 ml 340 ml 580 ml Output Urine Total 225 ml 1600 ml 250 ml Chest Tube Drainage Total 90 ml # Bowel Movements 4 0 Physical Exam GENERAL: NAD, AAOx3 SKIN: Warm and dry. HEAD: Atraumatic. Normocephalic. EYES: Pupils equal and round. No scleral icterus. No injection or drainage. ENT: No nasal bleeding or discharge. Mucous membranes pink and moist. NECK: Trachea midline. No JVD. CARDIOVASCULAR: Regular rate and rhythm. RESPIRATORY: No accessory muscle use. Clear to auscultation. Breath sounds equal bilaterally. GASTROINTESTINAL: Abdomen soft, non-tender, nondistended. Hepatic and splenic margins not palpable. MUSCULOSKELETAL: Extremities without clubbing, cyanosis, or edema. No obvious deformities. NEUROLOGICAL: No focal deficits Laboratory Laboratory Tests Test 09/17/17 05:10 Blood Urea Nitrogen 19 MG/DL Creatinine 0.69 MG/DL Random Glucose 96 MG/DL Calcium Level 8.2 MG/DL Magnesium Level 2.6 MG/DL Sodium Level 137 MEQ/L Potassium Level 3.6 MEQ/L Chloride Level 101 MEQ/L Carbon Dioxide Level 28.5 MEQ/L Anion Gap 8 MEQ/L Estimat Glomerular Filtration Rate 113 ML/MIN Imaging Last 24 hours Impressions Chest X-Ray 09/17/17 0600 Signed Impressions: Service Date/Time: , September 17, 2017 03:44 - CONCLUSION: Status post CABG and minimal bibasilar atelectasis. No pneumothorax. Ramirez Lares MD Assessment and Plan Problem List: (1) NSTEMI (non-ST elevated myocardial infarction) ICD Codes: I21.4 - Non-ST elevation (NSTEMI) myocardial infarction (2) Multi-vessel coronary artery stenosis ICD Codes: I25.10 - Atherosclerotic heart disease of [place] coronary artery without angina pectoris (3) Chest pain ICD Codes: R07.9 - Chest pain, unspecified Status: Acute (4) Carcinoid tumor ICD Codes: D3A.00 - Benign carcinoid tumor of unspecified site (5) S/P CABG x 3 ICD Codes: Z95.1 - Presence of aortocoronary bypass graft Assessment and Plan 1) NSTEMI/MVCAD s/p CABGx3 POD #4 DAWSON to LAD SVG to Ramus SVG to RCA 2) ASA/Plavix/Amio/Statin 3) Con't to ambulate 4) Cardiovascularly stable for discharge Problem Qualifiers (1) Chest pain: Qualified Codes: R07.9 - Chest pain, unspecified Joseph Reese DO Sep 17, 2017 22:22
== END 2017-09-17 13:29 | disposition home health service (06) | DRG 234 ==
LOC: NEPE 13:39 → NEDA 16:42 → N04A 21:20 → HCIS 09-11 10:30 → HCVI 09-12 16:14 → HCPC 09-14 11:03
PROVIDERS: ADMIT Hospitalist; ATTEND Hospitalist
PROC: 4A023N7 Measurement of Cardiac Sampling and Pressure, Left Heart, Percutaneous Approach (ICD-10-PCS; 2017-09-11)
PROC: B2111ZZ Fluoroscopy of Multiple Coronary Arteries using Low Osmolar Contrast (ICD-10-PCS; 2017-09-11)
PROC: 021109W Bypass Coronary Artery, Two Arteries from Aorta with Autologous Venous Tissue, Open Approach (ICD-10-PCS; 2017-09-13)
PROC: 06BQ4ZZ Excision of Left Saphenous Vein, Percutaneous Endoscopic Approach (ICD-10-PCS; 2017-09-13)
PROC: 02100Z9 Bypass Coronary Artery, One Artery from Left Internal Mammary, Open Approach (ICD-10-PCS; principal; 2017-09-13 07:56)
DX: I21.4 Non-ST elevation (NSTEMI) myocardial infarction (principal); R00.1 Bradycardia, unspecified; D64.9 Anemia, unspecified; I10 Essential (primary) hypertension; I25.10 Atherosclerotic heart disease of native coronary artery without angina pectoris; K21.9 Gastro-esophageal reflux disease without esophagitis; E78.5 Hyperlipidemia, unspecified; E87.6 Hypokalemia; E78.00 Pure hypercholesterolemia, unspecified; K59.00 Constipation, unspecified; Z79.82 Long term (current) use of aspirin; Z90.3 Acquired absence of stomach [part of]; Z87.891 Personal history of nicotine dependence
CPT/HCPCS: 71045; 71046; 71275; 76937; 80048; 80053; 80061; 80076; 81001; 82550; 82948; 83036; 83690; 83735; 84100; 84439; 84443; 84484; 85025; 85027; 85610; 85730; 86850; 86900; 86901; 86920; 87641; 93005; 93306; 93458; 93880; 93970; 93998; 94002; 94010; 94150; 94640; 94664; 94667; 94668; 96374; 96375; 99152; 99153; C1768; C1769; C1893; C9113; J0131; J0171; J0330; J0360; J0690; J1644; J1815; J1817; J1885; J1940; J2250; J2270; J2370; J2440; J2720; J3010; J3370; J3475; J3480; J7030; P9045; Q9967